=== PATIENT | female | born 1990 | race Caucasian/White ===

== ENCOUNTER 2016-03-15 11:19 | Emergency (ER) | payer BC, OTHER ==
[2016-03-15] MEDS ORDERED: LORazepam 1 MG TAB PO STA (11:50)
--- NOTE | 2016-03-15 12:18 | ED ---
Anxiety HPI - General Chief Complaint: Anxiety Stated Complaint: anxiety Time Seen by Provider: 03/15/16 11:36 Source: patient, RN notes reviewed Mode of arrival: wheelchair Limitations: no limitations - History of Present Illness Initial Comments: This a 25-year-old female presents emergency Department chief complaint anxiety. Patient states she's been very stressed out over the last week. She states today she started having numbness and tingling in her lips, fingertips. She states she felt very lightheaded and felt like her heart was racing. Patient states that she has not passed out. Patient states that her work, school and home life or catching up to her. She states that she is not suicidal or homicidal. She just states that she feels very off. She states she had mildly work today. Patient does have a history of mild anxiety but never this point. Patient denies any other complaints. - Related Data Home Medications: Previous Rx's Medication Instructions Recorded LORazepam [Ativan] 0.5 - 1 mg PO BID #10 tab 03/15/16 Allergies/Adverse Reactions: Allergies Allergy/AdvReac Type Severity Reaction Status Date / Time No Known Allergies Allergy Verified 03/15/16 11:45 Review of Systems ROS Statement: Those systems with pertinent positive or pertinent negative responses have been documented in the HPI. ROS Other: All systems not noted in ROS Statement are negative. Past Medical History Past Medical History: No Reported History History of Any Multi-Drug Resistant Organisms: None Reported Past Surgical History: No Surgical Hx Reported Past Anesthesia/Blood Transfusion Reactions: No Reported Reaction Past Psychological History: Anxiety Smoking Status: Never smoker Past Alcohol Use History: None Reported Past Drug Use History: None Reported - Past Family History Father Family Medical History: No Reported History General Exam Limitations: no limitations General appearance: alert, in no apparent distress Head exam: Present: atraumatic, normocephalic, normal inspection Eye exam: Present: normal appearance, PERRL, EOMI. Absent: scleral icterus, conjunctival injection, periorbital swelling ENT exam: Present: normal exam, normal oropharynx, mucous membranes moist, TM's normal bilaterally Neck exam: Present: normal inspection, full ROM. Absent: tenderness, meningismus, lymphadenopathy Respiratory exam: Present: normal lung sounds bilaterally. Absent: respiratory distress, wheezes, rales, rhonchi, stridor Cardiovascular Exam: Present: regular rate, normal rhythm, normal heart sounds. Absent: systolic murmur, diastolic murmur, rubs, gallop, clicks GI/Abdominal exam: Present: soft, normal bowel sounds. Absent: distended, tenderness, guarding, rebound, rigid Psychiatric exam: Present: anxious Skin exam: Present: warm, dry, intact, normal color. Absent: rash Course Vital Signs 03/15/16 11:30 Temperature 97.8 F Pulse Rate 88 Respiratory 20 Rate Blood Pressure 138/74 O2 Sat by Pulse 99 Oximetry Medical Decision Making - Medical Decision Making 25-year-old female presented for anxiety. Patient has had increased stress, anxiety. Patient was having a panic attack. She does feel improved after Ativan. Patient is not suicidal or homicidal. Patient will be discharged with Ativan at home. Disposition Clinical Impression: Acute anxiety, Panic attack Disposition: HOME SELF-CARE Condition: Stable Instructions: Generalized Anxiety Disorder (ED) Additional Instructions: Please return to the Emergency Department if symptoms worsen or any other concerns. Prescriptions: LORazepam [Ativan] 0.5 - 1 mg PO BID #10 tab Time of Disposition: 12:49
[2016-03-15 12:56] VITALS: BP 147/96; PULSE 85; RESP 16; TEMP 98
== END 2016-03-15 12:56 | disposition home or self-care (01) ==
LOC: EC 11:19
DX: F41.0 Panic disorder [episodic paroxysmal anxiety] (principal); Z79.899 Other long term (current) drug therapy
CPT/HCPCS: 99283

== ENCOUNTER → 2016-04-27 | Outpatient (CLI) | payer BC, OTHER | END | disposition home or self-care (01) | LOC: LABWHC1 10:24 | PROVIDERS: ATTEND Obstetrics & Gynecology | DX: N91.2 Amenorrhea, unspecified (principal) | CPT/HCPCS: 36415; 84702 ==

== ENCOUNTER 2016-08-14 07:01 | Emergency (ER) | payer BC, OTHER ==
[2016-08-14 07:10] VITALS: BP 139/81; PULSE 69; RESP 16; TEMP 97.1
[2016-08-14] MEDS ORDERED: SODIUM CHLORIDE 0.9% 1,000 ML IV STA (08:04)
[2016-08-14] MEDS ORDERED: MECLIZINE 12.5 MG TAB PO STA (08:04)
[2016-08-14] MEDS ORDERED: METOCLOPRAMIDE 5 MG/ML 2 ML VIAL IVP STA (08:04)
--- NOTE | 2016-08-14 08:07 | ED ---
Dizziness HPI - General Chief Complaint: Dizziness Stated Complaint: Dizzy Time Seen by Provider: 08/14/16 07:57 Source: patient, family, RN notes reviewed Mode of arrival: wheelchair Limitations: no limitations - History of Present Illness Initial Comments: 26-year-old female presents emergency Department chief complaint dizziness. Patient's visual over 4:30 with this dizziness. She states is exacerbated by any movement. Patient states she has had some nausea and vomiting. Denies headache denies fever denies chills denies any neck pain at this time. Patient has a benign past medical history has had no chest pain and no shortness of breath. She states with denies vomiting she's had no abdominal pain. Patient denies any recent URI symptoms. - Related Data Previous Rx's Medication Instructions Recorded Meclizine [Antivert] 25 mg PO TID PRN #15 tab 08/14/16 Ondansetron Odt [Zofran Odt] 4 mg PO Q8HR PRN #10 tab 08/14/16 Allergies Allergy/AdvReac Type Severity Reaction Status Date / Time No Known Allergies Allergy Verified 08/14/16 07:34 Review of Systems ROS Statement: Those systems with pertinent positive or pertinent negative responses have been documented in the HPI. ROS Other: All systems not noted in ROS Statement are negative. Past Medical History Past Medical History: No Reported History History of Any Multi-Drug Resistant Organisms: None Reported Past Surgical History: No Surgical Hx Reported Past Anesthesia/Blood Transfusion Reactions: No Reported Reaction Past Psychological History: Anxiety Smoking Status: Never smoker Past Alcohol Use History: None Reported Past Drug Use History: None Reported - Past Family History Father Family Medical History: No Reported History General Exam Limitations: no limitations General appearance: alert, in no apparent distress Head exam: Present: atraumatic, normocephalic, normal inspection Eye exam: Present: normal appearance, PERRL, EOMI. Absent: scleral icterus, conjunctival injection, periorbital swelling ENT exam: Present: normal exam, normal oropharynx, mucous membranes moist, TM's normal bilaterally, normal external ear exam Neck exam: Present: normal inspection, full ROM. Absent: tenderness, meningismus, lymphadenopathy Respiratory exam: Present: normal lung sounds bilaterally. Absent: respiratory distress, wheezes, rales, rhonchi, stridor Cardiovascular Exam: Present: regular rate, normal rhythm, normal heart sounds. Absent: systolic murmur, diastolic murmur, rubs, gallop, clicks Neurological exam: Present: alert, oriented X3, CN II-XII intact Skin exam: Present: warm, dry, intact, normal color. Absent: rash Course Vital Signs 08/14/16 07:07 Temperature 97.1 F L Pulse Rate 69 Respiratory 16 Rate Blood Pressure 139/81 O2 Sat by Pulse 98 Oximetry EKG Findings - EKG Comments: EKG Findings:: EKG performed at 8:56 sinus bradycardia with a rate of 59 RI interval 152 QRS duration 80 QT/QTC 414/409 Medical Decision Making - Medical Decision Making 26-year-old female presented for dizziness. Patient states she feels really better after Antivert and Reglan. Patient's laboratory within normal EKG does not show any acute changes. Patient be discharged with Antivert for vertigo. Return parameters were discussed. - Lab Data Result diagrams: 08/14/16 09:02 08/14/16 08:05 Lab Results 08/14/16 08/14/16 08/14/16 Range/Units 08:05 09:02 09:11 WBC 6.9 (3.8-10.6) k/uL RBC 4.68 (3.80-5.40) m/uL Hgb 14.4 (11.4-16.0) gm/dL Hct 41.5 (34.0-46.0) % MCV 88.6 (80.0-100.0) fL MCH 30.7 (25.0-35.0) pg MCHC 34.7 (31.0-37.0) g/dL RDW 12.9 (11.5-15.5) % Plt Count 245 (150-450) k/uL Neutrophils % 69 % Lymphocytes % 25 % Monocytes % 3 % Eosinophils % 2 % Basophils % 0 % Neutrophils # 4.7 (1.3-7.7) k/uL Lymphocytes # 1.7 (1.0-4.8) k/uL Monocytes # 0.2 (0-1.0) k/uL Eosinophils # 0.1 (0-0.7) k/uL Basophils # 0.0 (0-0.2) k/uL Sodium 139 (137-145) mmol/L Potassium 4.8 (3.5-5.1) mmol/L Chloride 107 (98-107) mmol/L Carbon Dioxide 21 L (22-30) mmol/L Anion Gap 11 mmol/L BUN 12 (7-17) mg/dL Creatinine 0.63 (0.52-1.04) mg/dL Est GFR (MDRD) Af Amer >60 (>60 ml/min/1.73 sqM) Est GFR (MDRD) Non-Af >60 (>60 ml/min/1.73 sqM) Glucose 102 H (74-99) mg/dL Calcium 9.6 (8.4-10.2) mg/dL Total Bilirubin 0.5 (0.2-1.3) mg/dL AST 22 (14-36) U/L ALT 29 (9-52) U/L Alkaline Phosphatase 112 (38-126) U/L Total Protein 7.7 (6.3-8.2) g/dL Albumin 4.2 (3.5-5.0) g/dL Urine Color Light Yellow Urine Appearance Cloudy H (Clear) Urine pH 6.5 (5.0-8.0) Ur Specific [place] 1.010 (1.001-1.035) Urine Protein Negative (Negative) Urine Glucose (UA) Negative (Negative) Urine Ketones Negative (Negative) Urine Blood Negative (Negative) Urine Nitrite Negative (Negative) Urine Bilirubin Negative (Negative) Urine Urobilinogen <2.0 (<2.0) mg/dL Ur Leukocyte Esterase Trace H (Negative) Urine WBC 1 (0-5) /hpf Ur Squamous Epith Cells 1 (0-4) /hpf Urine Mucus Rare H (None) /hpf Urine HCG, Qual (Not Detectd) 08/14/16 Range/Units 09:11 WBC (3.8-10.6) k/uL RBC (3.80-5.40) m/uL Hgb (11.4-16.0) gm/dL Hct (34.0-46.0) % MCV (80.0-100.0) fL MCH (25.0-35.0) pg MCHC (31.0-37.0) g/dL RDW (11.5-15.5) % Plt Count (150-450) k/uL Neutrophils % % Lymphocytes % % Monocytes % % Eosinophils % % Basophils % % Neutrophils # (1.3-7.7) k/uL Lymphocytes # (1.0-4.8) k/uL Monocytes # (0-1.0) k/uL Eosinophils # (0-0.7) k/uL Basophils # (0-0.2) k/uL Sodium (137-145) mmol/L Potassium (3.5-5.1) mmol/L Chloride (98-107) mmol/L Carbon Dioxide (22-30) mmol/L Anion Gap mmol/L BUN (7-17) mg/dL Creatinine (0.52-1.04) mg/dL Est GFR (MDRD) Af Amer (>60 ml/min/1.73 sqM) Est GFR (MDRD) Non-Af (>60 ml/min/1.73 sqM) Glucose (74-99) mg/dL Calcium (8.4-10.2) mg/dL Total Bilirubin (0.2-1.3) mg/dL AST (14-36) U/L ALT (9-52) U/L Alkaline Phosphatase (38-126) U/L Total Protein (6.3-8.2) g/dL Albumin (3.5-5.0) g/dL Urine Color Urine Appearance (Clear) Urine pH (5.0-8.0) Ur Specific [place] (1.001-1.035) Urine Protein (Negative) Urine Glucose (UA) (Negative) Urine Ketones (Negative) Urine Blood (Negative) Urine Nitrite (Negative) Urine Bilirubin (Negative) Urine Urobilinogen (<2.0) mg/dL Ur Leukocyte Esterase (Negative) Urine WBC (0-5) /hpf Ur Squamous Epith Cells (0-4) /hpf Urine Mucus (None) /hpf Urine HCG, Qual Not Detected (Not Detectd) Disposition Clinical Impression: Vertigo Disposition: HOME SELF-CARE Condition: Stable Instructions: Vertigo (ED) Additional Instructions: Please return to the Emergency Department if symptoms worsen or any other concerns. Prescriptions: Meclizine [Antivert] 25 mg PO TID PRN #15 tab PRN Reason: Vertigo Ondansetron Odt [Zofran Odt] 4 mg PO Q8HR PRN #10 tab PRN Reason: Nausea Referrals: Karen Rodrigues DO [Primary Care Provider] - 1-2 days Time of Disposition: 09:48
[2016-08-14 09:27] LABS: ALT 29 U/L (9-52); AST 22 U/L (14-36); Alkaline Phosphatase 112 U/L (38-126); Anion Gap 11 mmol/L; Blood Urea Nitrogen 12 mg/dL (7-17); Calcium 9.6 mg/dL (8.4-10.2); Carbon Dioxide 21 mmol/L (22-30); Chloride 107 mmol/L (98-107); Glucose 102 mg/dL (74-99); Non-African American GFR(MDRD) >60 (>60 ml/min/1.73 sqM); Potassium 4.8 mmol/L (3.5-5.1); Sodium 139 mmol/L (137-145); Total Bilirubin 0.5 mg/dL (0.2-1.3); Total Protein 7.7 g/dL (6.3-8.2)
[2016-08-14 09:29] LABS: Basophils % (A) 0 %; CH 30.6; CHCM 34.7; Eosinophils # (A) 0.1 k/uL (0-0.7); Eosinophils % (A) 2 %; HCT 41.5 % (34.0-46.0); HDW 2.61; HGB 14.4 gm/dL (11.4-16.0); Luc % (Auto) 1; Lymphocytes # (A) 1.7 k/uL (1.0-4.8); Lymphocytes % (A) 25 %; MCH 30.7 pg (25.0-35.0); MCHC 34.7 g/dL (31.0-37.0); MCV 88.6 fL (80.0-100.0); Mean Platelet Volume 7.1; Monocytes # (A) 0.2 k/uL (0-1.0); Monocytes % (A) 3 %; Neutrophils # (A) 4.7 k/uL (1.3-7.7); Neutrophils % (A) 69 %; RBC 4.68 m/uL (3.80-5.40); RDW 12.9 % (11.5-15.5); WBC 6.9 k/uL (3.8-10.6); WBC (Perox) 6.86
[2016-08-14 09:34] LABS: Appearance,Urine Cloudy (Clear); Bilirubin,Urine Negative (Negative); Glucose,Urine (UA) Negative (Negative); Ketones,Urine Negative (Negative); Leukocyte Esterase,Urine Trace (Negative); Mucus,Urine Rare /hpf; Nitrite,Urine Negative (Negative); PH, Urine 6.5 (5.0-8.0); Particle Count 8345; Protein,Urine Negative (Negative); Squamous Epithelial Cell,Urine 1 /hpf (0-4); UA Billing (MACRO vs. MICRO) MICRO; Urobilinogen,Urine <2.0 mg/dL (<2.0); WBC,Urine 1 /hpf (0-5)
== END 2016-08-14 10:07 | disposition home or self-care (01) ==
LOC: EC 07:01
DX: R42 Dizziness and giddiness (principal)
CPT/HCPCS: 99284; 96374; 96361; 36415; 93005; 80053; 85025; 81001; 81025; J2765

== ENCOUNTER 2017-05-09 16:21 | Emergency (ER) | payer BC ==
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
[2017-05-09 17:41] LABS: Basophils % (A) 0 %; Eosinophils # (A) 0.3 k/uL (0-0.7); Eosinophils % (A) 2 %; HCT 38.8 % (34.0-46.0); HGB 12.8 gm/dL (11.4-16.0); Lymphocytes # (A) 2.9 k/uL (1.0-4.8); Lymphocytes % (A) 25 %; MCH 28.6 pg (25.0-35.0); MCHC 32.9 g/dL (31.0-37.0); MCV 86.9 fL (80.0-100.0); Mean Platelet Volume 7.2; Monocytes # (A) 0.4 k/uL (0-1.0); Monocytes % (A) 3 %; Neutrophils # (A) 7.9 k/uL (1.3-7.7); Neutrophils % (A) 68 %; Platelet Count 265 k/uL (150-450); RBC 4.47 m/uL (3.80-5.40); RDW 13.1 % (11.5-15.5); WBC 11.6 k/uL (3.8-10.6)
[2017-05-09 17:47] LABS: Appearance,Urine Clear (Clear); Bilirubin,Urine Negative (Negative); Blood,Urine Small (Negative); Color,Urine Light Yellow; Glucose,Urine (UA) Negative (Negative); Ketones,Urine Negative (Negative); Leukocyte Esterase,Urine Negative (Negative); PH, Urine 5.5 (5.0-8.0); Protein,Urine Negative (Negative); RBC,Urine 1 /hpf (0-5); Specific Gravity,Urine 1.005 (1.001-1.035); Squamous Epithelial Cell,Urine 1 /hpf (0-4); Urobilinogen,Urine <2.0 mg/dL (<2.0); WBC,Urine 1 /hpf (0-5)
[2017-05-09 17:50] LABS: ALT 27 U/L (9-52); AST 18 U/L (14-36); Albumin 3.9 g/dL (3.5-5.0); Alkaline Phosphatase 106 U/L (38-126); Anion Gap 12 mmol/L; Blood Urea Nitrogen 13 mg/dL (7-17); Calcium 9.5 mg/dL (8.4-10.2); Carbon Dioxide 24 mmol/L (22-30); Chloride 102 mmol/L (98-107); Glucose 92 mg/dL (74-99); Sodium 138 mmol/L (137-145); Total Bilirubin 0.2 mg/dL (0.2-1.3); Total Protein 7.3 g/dL (6.3-8.2)
[2017-05-09 18:06] LABS: HCG,Quantitative Serum 6884.6 mIU/mL
[2017-05-09 18:21] VITALS: RESP 16
[2017-05-09 18:24] VITALS: BP 131/71; PULSE 95; TEMP 99
--- NOTE | 2017-05-09 18:28 | US ---
EXAMINATION TYPE: US OB <= 14 wk fetus DATE OF EXAM: 05/09/2017 COMPARISON: NONE CLINICAL HISTORY: Pain. Bleeding today, none now, no cramping G1, EXAM PERFORMED: OBTA and OBTV EXAM MEASUREMENTS: GESTATIONAL AGE / DATING Physician Established: Not yet established Dates by LMP: (7 weeks/4 days) EDC: 12/22/2017 Dates by First Scan: No previous this is first scan Dates by Current Scan for: too early to date MATERNAL ANATOMY Uterus: 7.6 x 5.6 x 4.1cm, retroverted Right Ovary: 3.4 x 2.7 x 2.7cm Left Ovary: 2.6 x 2.4 x 2.2cm, small 1.2cm exophytic cyst seen Post CDS / Adnexa: mild free fluid Presence of free fluid: in CDS Presence of corpus luteal cyst: yes - right ovary = 1.8cm Presence of subchorionic bleed: no GESTATION / SURVEY CRL: not see, possibly too early MSD: 0.95cm = OOR, out of range, less then 5 weeks Yolk Sac (normal less than 6mm): 0.2 Heart Rate: too early to detect 1.8 cm cyst on the right ovary. Date of LMP: 03/17/2017 Beta HcG (if available): not available Probable early IUP seen with mild free fluid within CDS and right ovarian cysts IMPRESSION: There is possible early intrauterine gestational sac. Diameter is 11 mm and follow-up is recommended in 14 days to confirm a living fetus. No adnexal mass. 1.8 cm cyst on the right ovary.
== END 2017-05-09 18:52 | disposition home or self-care (01) ==
LOC: EC 16:21
DX: O20.9 Hemorrhage in early pregnancy, unspecified (principal); O99.89 Other specified diseases and conditions complicating pregnancy, childbirth and the puerperium; R60.9 Edema, unspecified; O26.891 Other specified pregnancy related conditions, first trimester; R10.9 Unspecified abdominal pain; Z3A.01 Less than 8 weeks gestation of pregnancy
CPT/HCPCS: 36415; 76801; 76817; 80053; 81001; 81025; 84702; 85025; 86900; 86901; 99284

== ENCOUNTER → 2017-05-11 | Outpatient (CLI) | payer BC | END | disposition home or self-care (01) | LOC: LABWHC1 12:22 | PROVIDERS: ATTEND Physician Assistant Medical | DX: O20.0 Threatened abortion (principal); Z3A.00 Weeks of gestation of pregnancy not specified | CPT/HCPCS: 36415; 84702 ==

== ENCOUNTER → 2017-06-20 | Outpatient (CLI) | payer BC ==
[2017-06-20 07:40] LABS: HCT 38.9 % (34.0-46.0); HGB 12.9 gm/dL (11.4-16.0); MCH 28.7 pg (25.0-35.0); MCHC 33.1 g/dL (31.0-37.0); MCV 86.7 fL (80.0-100.0); Mean Platelet Volume 7.2; Platelet Count 241 k/uL (150-450); RBC 4.48 m/uL (3.80-5.40); RDW 13.1 % (11.5-15.5); WBC 7.9 k/uL (3.8-10.6)
[2017-06-20 07:57] LABS: Glucose 142 mg/dL (74-99)
[2017-06-21 06:12] LABS: Toxoplasma Antibody (IgG) <3.0 IU/mL (<7.2); Toxoplasma Antibody (IgM) <3.0 AU/mL (<8.0)
== END | disposition home or self-care (01) ==
LOC: LABWHC1 06:57
PROVIDERS: ATTEND Obstetrics & Gynecology
DX: Z34.81 Encounter for supervision of other normal pregnancy, first trimester (principal)
CPT/HCPCS: 36415; 82565; 82947; 85027; 86762; 86777; 86778; 86780; 86850; 86900; 86901; 87340

== ENCOUNTER → 2017-06-25 | Outpatient (CLI) | payer BC ==
[2017-06-25 17:21] LABS: HCT 36.9 % (34.0-46.0); HGB 12.9 gm/dL (11.4-16.0); MCH 29.9 pg (25.0-35.0); MCHC 35.1 g/dL (31.0-37.0); MCV 85.1 fL (80.0-100.0); Mean Platelet Volume 6.8; Platelet Count 244 k/uL (150-450); RBC 4.34 m/uL (3.80-5.40); WBC 11.6 k/uL (3.8-10.6)
== END | disposition home or self-care (01) ==
LOC: LABWHC1 16:06
PROVIDERS: ATTEND Obstetrics & Gynecology
DX: Z34.81 Encounter for supervision of other normal pregnancy, first trimester (principal); Z3A.00 Weeks of gestation of pregnancy not specified
CPT/HCPCS: 36415; 82950; 85027

== ENCOUNTER → 2017-09-25 | Outpatient (CLI) | payer OTHER ==
[2017-09-25 10:05] LABS: HCT 36.1 % (34.0-46.0); HGB 12.4 gm/dL (11.4-16.0); MCHC 34.2 g/dL (31.0-37.0); MCV 87.5 fL (80.0-100.0); Mean Platelet Volume 7.1; Platelet Count 244 k/uL (150-450); RBC 4.13 m/uL (3.80-5.40); RDW 14.2 % (11.5-15.5); WBC 11.4 k/uL (3.8-10.6)
== END | disposition home or self-care (01) ==
LOC: LABWHC1 08:28
PROVIDERS: ATTEND Obstetrics & Gynecology
DX: Z34.82 Encounter for supervision of other normal pregnancy, second trimester (principal); Z3A.00 Weeks of gestation of pregnancy not specified
CPT/HCPCS: 36415; 82950; 85027

== ENCOUNTER 2017-10-22 12:42 | Outpatient (CLI) | payer OTHER ==
[2017-10-22 13:39] LABS: Appearance,Urine Cloudy (Clear); Bilirubin,Urine Negative (Negative); Blood,Urine Negative (Negative); Color,Urine Yellow; Glucose,Urine (UA) Negative (Negative); Ketones,Urine 2+ (Negative); Leukocyte Esterase,Urine Large (Negative); Mucus,Urine Moderate /hpf; Nitrite,Urine Negative (Negative); PH, Urine 5.5 (5.0-8.0); Protein,Urine 1+ (Negative); RBC,Urine 33 /hpf (0-5); Specific Gravity,Urine 1.023 (1.001-1.035); Squamous Epithelial Cell,Urine 21 /hpf (0-4); Urobilinogen,Urine <2.0 mg/dL (<2.0); WBC,Urine 19 /hpf (0-5)
[2017-10-22 14:08] VITALS: BP 138/67; PULSE 99; RESP 20; TEMP 98.2
--- NOTE | 2017-11-02 08:05 | P.MSEPDOC ---
Presenting Problems - Arrival Data Date of Arrival on Unit: 10/22/17 Time of Arrival on Unit: 12:40 Mode of Transport: Ambulatory Vital Signs - Temperature Temperature: 98.2 F Temperature Source: Oral - Pulse Right Pulse Oximetery Pulse Rate: 99 Pulse Assessment Method: Pulse Oximetry - Respirations Respiratory Rate: 20 Oxygen Delivery Method: Room Air O2 Sat by Pulse Oximetry: 100 - Blood Pressure Right Arm Blood Pressure: 138/67 Blood Pressure Mean: 90 Blood Pressure Source: Automatic Cuff Medical Screen Scoring (Post) - Cervical Exam Dilation: 0 cm = 0 Membranes: Intact - Uterine Contractions Frequency: > 5 minutes apart = 1 Duration: N/A Intensity: N/A - Maternal Vital Signs Maternal Temperature: N/A Maternal Blood Pressure: N/A Signs of Preeclampsia: N/A Maternal Respirations: N/A - Pain Assessment Pain Location and Character: Pelvic Pain Scale Used: Numeric (1 - 10) Pain Intensity: 5 Pain Management Goal: 2 Pain Description: *Acute, Pressure Pain Radiation Location: none Pain Frequency: Constant Pain Duration: 1 Pain Duration Units: Days Pain Behavior: Moving Slowly, Vocalization Effects of Pain: none Pain Aggravating Factors: None Pharmacological Interventions: Discuss Pain Med Options Non-Pharmacological Interventions: Position/Reposition - Maternal Trauma Maternal Trauma: N/A - Assessment Heart Rate: 130 Heart Rate - NICHD Category: Category I (Normal) = 0 Position: N/A Station: N/A - Total Score Total Score (Post): 1 - Post Treatment Level of Risk Post Treatment Level of Risk: Low (0-5) Physician Notification (Post) - Physician Notified Physician Notified Date: 10/22/17 Physician Notified Time: 13:21 Physician/Practitioner Notified:: Aracelis Spoke With: Telephone New Order Received: Yes - Notification Comment Comment: Pt here for pelvic pain and pressure and abdominal tightening every 3- 7 min per patient. Cervix closed and thick, UA send showing signs of bladder infection. ATB e-scribed by Dr Hsu to pts pharmacy and instructions given to pt to supervisor opening and picking prescription today and take as prescribed until prescription is gone. NST unable to obtain due to pt size, FHR RN did obtain was reassuring, okay to D/C still per Dr Hsu Disposition - Disposition OB Disposition: Discharge to home Discharge Date: 10/22/17 Discharge Time: 14:00 I agree with the RN Medical Screening Exam: Yes Risk & Benefit of care provided described in d/c instruction: Yes Diagnosis: URINARY TRACT INFECTION, SITE NOT SPECIFIED
== END 2017-10-22 14:00 | disposition home or self-care (01) ==
LOC: FBPOP 12:42
PROVIDERS: ATTEND Obstetrics & Gynecology
DX: O23.40 Unspecified infection of urinary tract in pregnancy, unspecified trimester (principal); Z3A.00 Weeks of gestation of pregnancy not specified
CPT/HCPCS: 81001; G0463; 99213

== ENCOUNTER 2017-11-08 19:16 | Outpatient (CLI) | payer OTHER ==
[2017-11-09 05:19] VITALS: BP 130/65; PULSE 76; RESP 18; TEMP 98.4
--- NOTE | 2017-11-25 09:20 | P.MSEPDOC ---
Presenting Problems - Arrival Data Date of Arrival on Unit: 11/08/17 Time of Arrival on Unit: 19:16 Mode of Transport: Ambulatory - Complaint OB-Reason for Admission/Chief Complaint: Decreased Movement Comment: pt presents to triage after having cramping off and on all day irregularly. since around 10 am, not feeing baby move since noon and small amount bright red spotting. noticed on tissue when wiping about 645pm. Pt teary. states baby is usually very active. at this time. Medical History - Information : 2 Para: 1 Term: 1 : 0 Abortions: Spontaneous or Elective: 0 Number of Living Children: 1 - Gestational Age Gestational Age by GUANACO (wks/days): 32 Weeks and 0 Days - History Complications: Prior Review of Systems - Review of Systems Constitutional: No problems Breast: No problems ENT: No problems Cardiovascular: No problems Respiratory: No problems Gastrointestinal: No problems Genitourinary: No problems Musculoskeletal: No problems Neurological: No problems Skin: No problems Comment: no spotting noted on tissue when pt up to bathroom Vital Signs - Temperature Temperature: 98.4 F Temperature Source: Oral - Pulse Right Pulse Rate: 76 Pulse Assessment Method: Pulse Oximetry - Respirations Respiratory Rate: 18 Oxygen Delivery Method: Room Air O2 Sat by Pulse Oximetry: 98 - Blood Pressure Right Arm Blood Pressure: 130/65 Blood Pressure Mean: 86 Blood Pressure Source: Automatic Cuff Medical Screen Scoring (Pre) - Cervical Exam Dilation: Exam Deferred Effacement: Exam Deferred - Uterine Contractions Frequency: N/A - Maternal Vital Signs Maternal Temperature: N/A Maternal Blood Pressure: N/A Signs of Preeclampsia: N/A Maternal Respirations: N/A - Pain Assessment Pain Intensity: 0 - Maternal Trauma Maternal Trauma: N/A - Assessment Baseline FHR: 135 - Total Score Total Score (Pre): 0 - Level of Risk Level of Risk: N/A Physician Notification (Pre) - Physician Notified Physician Notified Date: 11/08/17 Physician Notified Time: 21:30 Spoke With: Dr Sales New Order Received: Yes - Notification Comment Comment: May discharge home after another 10 min of monitoring tracing. Dr vail pt is large and extremly difficult to keep baby on monitor. unable to obtain full 20 NSt but 2 accels and reassuring strip obtained for 9 min at 2034. full reactive nst obtained by 2149 . pt feeling baby movement. comfortable with discharge. Disposition - Disposition OB Disposition: Discharge to home Discharge Date: 11/09/17 Discharge Time: 22:10 I agree with the RN Medical Screening Exam: Yes Risk & Benefit of care provided described in d/c instruction: Yes Diagnosis: DECREASED MOVEMENTS, THIRD TRIMESTER, FETUS 1
== END 2017-11-08 22:10 | disposition home or self-care (01) ==
LOC: FBPOP 19:16
PROVIDERS: ATTEND Obstetrics & Gynecology
DX: O36.8131 Decreased fetal movements, third trimester, fetus 1 (principal); Z3A.32 32 weeks gestation of pregnancy
CPT/HCPCS: 59025; G0463; 99213

== ENCOUNTER 2017-12-28 05:35 | Inpatient (IN) | payer BC, OTHER ==
[2017-12-26 13:03] VITALS: BMI 56.0
--- NOTE | 2017-12-27 07:00 | P.HPOB ---
History of Present Illness H&P Date: 12/27/17 Chief Complaint: Repeat and tubal ligation This patient is a pleasant 27-year-old 2 para 1 female estimated date of confinement 01/04/2018 estimated gestational age 39 weeks who presents to labor and delivery for elective repeat section and also requesting permanent sterilization. Patient's has been uncomplicated with the exception of morbid obesity. She's had previous section and request repeat and also requesting permanent sterilization. Review of Systems Gastrointestinal: Reports heartburn Genitourinary: Reports Menstruation: Reports amenorrhea Past Medical History Past Medical History: No Reported History Additional Past Medical History / Comment(s): Morbid obesity. Patient had a primary section her first for failure to progress at 41 weeks. History of Any Multi-Drug Resistant Organisms: None Reported Past Surgical History: Section Past Anesthesia/Blood Transfusion Reactions: No Reported Reaction Past Psychological History: Anxiety Smoking Status: Never smoker Past Alcohol Use History: None Reported Past Drug Use History: None Reported - Past Family History Father Family Medical History: No Reported History Medications and Allergies Home Medications Medication Instructions Recorded Confirmed Type Zxi-Iuuk-Slgqv Acid 1 cap PO DAILY 05/09/17 10/22/17 History [-U Capsule (formulary)] Allergies Allergy/AdvReac Type Severity Reaction Status Date / Time No Known Allergies Allergy Verified 12/26/17 13:00 Exam Intake and Output 12/26/17 12/26/17 12/27/17 14:59 22:59 06:59 Other: Weight 157.397 kg - OBG Physical Exam Abdomen: bowel sounds normal, no diffuse tenderness, no bruit present, no guarding noted, no hepatomegaly, no splenomegaly, no mass Vulva: both: normal Vagina: normal moisture, no discharge Cervix: no lesion (Cervix in the office previously was closed.), no discharge Uterus: normal size (Fundal height was 46 cm.), normal contour Results blood work shows she is oh positive, rubella immune, hepatitis B nonreactive, RPR nonreactive, Glucola was abnormal with a normal three-hour gtt. Patient's ultrasounds have been normal. Patient had a positive group B strep. Assessment and Plan Assessment: This is a pleasant 27-year-old 2 para 1 female 39 weeks gestation who presents for requested repeat section and also requesting permanent sterilization. Patient understands a tubal ligation is considered permanent however it does have a failure rate of approximately 5 per thousand procedures done. Patient also understands surgery itself has risks including risks of infection, bleeding, possible injury bowel, bladder, vessels, and/or other organs. She understands risk of DVT and pulmonary embolism. She also understands unfortunately due to her morbid obesity she is at increased risk of infection or other surgical complications. Plan is to proceed with repeat low transverse section and bilateral partial salpingectomy. (1) Previous delivery affecting Status: Acute Code(s): O34.219 - MATERNAL CARE FOR UNSP TYPE SCAR FROM PREVIOUS DEL SNOMED Code(s): 494612172 (2) Family planning Status: Acute Code(s): Z30.09 - ENCOUNTER FOR OTH GENERAL CNSL AND ADVICE ON CONTRACEPTION SNOMED Code(s): 996425809 (3) Morbid obesity Status: Acute Code(s): E66.01 - MORBID (SEVERE) OBESITY DUE TO EXCESS CALORIES SNOMED Code(s): 971805383
[2017-12-28] MEDS ORDERED: CITRIC ACID-SODIUM CITRATE 15 ML CUP PO ONE (05:50)
[2017-12-28] MEDS ORDERED: LACTATED RINGERS 1,000 ML IV ONE (05:50)
[2017-12-28] MEDS ORDERED: LACTATED RINGERS 1,000 ML IV SCH (05:50)
[2017-12-28 06:21] LABS: Basophils % (A) 0 %; Eosinophils # (A) 0.2 k/uL (0-0.7); Eosinophils % (A) 1 %; HGB 11.9 gm/dL (11.4-16.0); Lymphocytes # (A) 2.5 k/uL (1.0-4.8); Lymphocytes % (A) 19 %; MCHC 33.9 g/dL (31.0-37.0); MCV 88.4 fL (80.0-100.0); Mean Platelet Volume 7.4; Monocytes # (A) 0.4 k/uL (0-1.0); Monocytes % (A) 3 %; Neutrophils # (A) 9.6 k/uL (1.3-7.7); Neutrophils % (A) 75 %; Platelet Count 217 k/uL (150-450); RBC 3.96 m/uL (3.80-5.40); RDW 14.9 % (11.5-15.5); WBC 12.8 k/uL (3.8-10.6)
[2017-12-28] MEDS ORDERED: ceFAZolin 3 GM in SODIUM CHLORIDE 0.9% 100 ML IVPB ONE (07:30)
[2017-12-28] MEDS ORDERED: PROPOFOL 10 MG/ML 20 ML VIAL IV ONE (07:49)
[2017-12-28] MEDS ORDERED: SUCCINYLCHOLINE CHLORIDE 100 MG/5 ML SYR IV ONE (07:49)
[2017-12-28] MEDS ORDERED: OXYTOCIN 10 UNIT/ML 1 ML VIAL ONE (07:49)
[2017-12-28] MEDS ORDERED: fentaNYL (PF) 50 MCG/ML 2 ML AMP ONE (07:49)
[2017-12-28] MEDS ORDERED: KETOROLAC 30 MG/ML 1 ML VIAL ONE (07:49)
[2017-12-28] MEDS ORDERED: ONDANSETRON 4 MG/2 ML VIAL ONE (07:49)
[2017-12-28] MEDS ORDERED: NALBUPHINE 10 MG/ML VIAL (10ML MDV) ONE (07:49)
[2017-12-28] MEDS ORDERED: MORPHINE SULFATE (PF) 0.3 MG/0.3 ML SYR ONE (07:49)
[2017-12-28] MEDS ORDERED: diphenhydrAMINE 50 MG/ML 1 ML VIAL IVP PRN ×2 (08:41→09:03)
[2017-12-28] MEDS ORDERED: NALOXONE 0.4 MG/ML 1 ML VIAL IV PRN ×2 (08:41→09:03)
--- NOTE | 2017-12-28 09:02 | P.OP ---
Date of Procedure: 12/28/17 Preoperative Diagnosis: #1: 39-0/7 weeks . #2: Previous section desires repeat. #3: Multi parity desires permanent sterilization Postoperative Diagnosis: Same, omental adhesions Procedure(s) Performed: #1: Repeat low transverse section. #2: Bilateral partial salpingectomy. #3: Lysis of adhesions Anesthesia: GETA (Ineffective spinal) Surgeon: Ray Hsu Bellows Assembler #1: Marci Coker Estimated Blood Loss (ml): 800 Pathology: other (Bilateral fallopian tube segments) Condition: stable Disposition: floor Indications for Procedure: Please see dictated H&P for intimate details of this patient's admission. Brief summary is a pleasant 27-year-old 2 para 1 female 39-0/7 weeks gestation is admitted to labor and delivery for elective repeat section and also requesting permanent sterilization. Patient does understand that a tubal ligation is permanent however does have a failure rate of approximately 5 per thousand procedures done. She understands that surgery itself has risks including risks of infection, bleeding, possible injury bowel, bladder, vessels, and/or other organs. Patient stands risk of DVT and pulmonary embolism. All the patient's questions are answered and a written consent is obtained. Operative Findings: This is a vigorous viable male infant Apgars 8 and 9 delivery time was 0820 hours. There is multiple omental adhesions to the anterior abdominal wall. Description of Procedure: This patient is taken to the operating room. She previously had a Garnica catheter placed to straight drain. Patient sat up and spinal anesthetic is administered. Patient this time then have abdominal prep and drape unfortunately after prolonged observation the spinal was deemed to be ineffective and then consultation with anesthesia we elected to proceed with general anesthesia for delivery. At this time she underwent rapid sequence general endotracheal anesthesia without incident. Scalpels taken the previous Pfannenstiel skin incision is then incised. A second scalpel is taken down the fascia. Fascia scored with a knife. Fascial incision extended bilaterally using the Witt scissors. Fascia is then dissected sharply off the rectus muscles. Rectus muscles are the peritoneum was identified and entered sharply. We immediately noticed multiple omental adhesions which are cleared. The bladder blade is then placed. Scalpels then taken and a low transverse uterine incision is made. Using a hemostat I into the uterine cavity bluntly. There is loss of a copious amount of clear fluid. With this done the is guided through the incision with fundal pressure the head is delivered. Mouth and nares are bulb suctioned and there is no evidence of nuchal cord. We then have deliver the anterior posterior shoulder and rest this 's body. This is a vigorous viable male infant Apgars are 8 and 9 delivery time was 0820 hours. After delivery of the infant the umbilical cord is doubly clamped and cut appears to be trivascular. Cord blood is obtained because of oh positive status. The placenta is then delivered intact. Uterus is externalized and demarcated with Mcclelland clamps uterine incision then closed in 0 Vicryl running locked fashion. Excellent hemostasis is noted. Then turned my attention a left fallopian tube approximately 4 cm from the cornual insertion a small window is made to the mesial salpinx with Bovie cautery. Using 2-0 silk I doubly ligate a 2 cm segment of the tube. This is excised and handed off to pathology. Cauterization is done of the tubal ends and excellent hemostasis is noted a similar technique is used on the right side with similar results. With this done excess fluid is removed from the abdomen pelvis. Some more omental adhesions are cauterized and released. Uterus placed back into the abdomen. Tubes and ovaries appear normal for term gestation. The parietal peritoneum was then isolated is best as possible and reapproximated using 0 Vicryl running fashion. Rectus muscle reapproximate 0 Vicryl interrupted fashion. Fascia is then closed using 0 PDS. Fascial incision is intact and hemostatic. Subcutaneous tissues and closed using a 3-0 Vicryl. Skin is and closed using wilmer. All counts are correct 3. There are no complications. Patient is awakened from anesthesia and taken birthing suite in satisfactory condition.
[2017-12-28] MEDS ORDERED: ACETAMINOPHEN TAB 325 MG TAB PO PRN (09:03)
[2017-12-28] MEDS ORDERED: KETOROLAC 30 MG/ML 1 ML VIAL IVP PRN (09:03)
[2017-12-28] MEDS ORDERED: OXYTOCIN 20 UNITS/1000 ML NS 1,000 ML IV SCH (09:03)
[2017-12-28] MEDS ORDERED: ONDANSETRON 4 MG/2 ML VIAL IVP PRN (09:03)
[2017-12-28] MEDS ORDERED: diphenhydrAMINE 25 MG CAP PO PRN (09:03)
[2017-12-28] MEDS ORDERED: ZOLPIDEM 5 MG TAB PO PRN (09:03)
[2017-12-28] MEDS ORDERED: IBUPROFEN 600 MG TAB PO PRN (09:03)
[2017-12-28] MEDS ORDERED: SIMETHICONE 80 MG CHEWABLE PO PRN (09:03)
[2017-12-28] MEDS: HYDROmorphone 1 MG/ML 1 ML SYRINGE IVP PRN ×2 (09:09→11:20)
[2017-12-28] MEDS: ONDANSETRON 4 MG/2 ML VIAL IVP PRN ×3 (09:12→21:02)
[2017-12-28] MEDS: LACTATED RINGERS 1,000 ML IV SCH ×2 (09:17→17:14)
[2017-12-28] MEDS ORDERED: HYDROmorphone 1 MG/ML 1 ML SYRINGE IVP STA ×2 (09:26→09:59)
[2017-12-28] MEDS: METOCLOPRAMIDE 5 MG/ML 2 ML VIAL IVP PRN ×2 (09:44→16:17)
[2017-12-28] MEDS: SENNOSIDES-DOCUSATE SODIUM 1 EACH TAB PO SCH ×2 (10:47→20:33)
[2017-12-28] MEDS: HYDROmorphone PCA 5 MG/25 ML SYRINGE IV PRN ×3 (11:58→23:33)
[2017-12-28] MEDS: KETOROLAC 30 MG/ML 1 ML VIAL IVP PRN (21:03)
[2017-12-29] MEDS: LACTATED RINGERS 1,000 ML IV SCH ×2 (00:53→21:44)
[2017-12-29] MEDS: KETOROLAC 30 MG/ML 1 ML VIAL IVP PRN (04:28)
[2017-12-29] MEDS: ONDANSETRON 4 MG/2 ML VIAL IVP PRN (04:38)
[2017-12-29 05:44] LABS: Basophils % (A) 0 %; Eosinophils # (A) 0.1 k/uL (0-0.7); Eosinophils % (A) 1 %; HCT 29.2 % (34.0-46.0); Lymphocytes # (A) 1.5 k/uL (1.0-4.8); Lymphocytes % (A) 13 %; MCH 29.8 pg (25.0-35.0); MCHC 33.9 g/dL (31.0-37.0); Mean Platelet Volume 8.1; Monocytes # (A) 0.6 k/uL (0-1.0); Monocytes % (A) 6 %; Neutrophils # (A) 8.8 k/uL (1.3-7.7); Neutrophils % (A) 79 %; Platelet Count 174 k/uL (150-450); RBC 3.32 m/uL (3.80-5.40); RDW 14.9 % (11.5-15.5); WBC 11.1 k/uL (3.8-10.6)
[2017-12-29 05:48] LABS: HGB 9.9 gm/dL (11.4-16.0)
[2017-12-29] MEDS: HYDROmorphone PCA 5 MG/25 ML SYRINGE IV PRN (07:21)
[2017-12-29] MEDS: SENNOSIDES-DOCUSATE SODIUM 1 EACH TAB PO SCH ×2 (07:26→21:43)
--- NOTE | 2017-12-29 11:58 | P.PNOBGPC ---
Subjective - Subjective Principal diagnosis: Status post repeat section with tubal ligation POD #1 Interval history: Patient is complaining of dizziness and motion sickness feelings. She gets nausea when she tries to move. She is not passing flatus or bowel movement yet. She has ambulated a few times. Her Garnica catheter was removed early this morning and she has been up to the bathroom and has urinated. She is breast- feeding. Her pain is fairly well controlled with her [employer] pump. Lochia has been moderate. Patient reports: Reports voiding normally, Reports dizzy ambulation, Reports pain well controlled, Reports nauseated : doing well, nursing well Objective - Vital Signs Latest vital signs: Vital Signs Temp Pulse Resp BP BP Pulse Ox 12/29/17 10:36 94 18 129/60 12/29/17 08:00 98.4 F 104 H 18 120/73 97 12/29/17 06:00 14 12/29/17 04:15 98.1 F 105 H 16 142/71 100 12/29/17 02:00 16 12/28/17 23:58 97.5 F L 92 16 108/63 98 12/28/17 22:00 16 98 12/28/17 20:00 98.1 F 97 16 138/81 100 12/28/17 19:00 16 12/28/17 17:00 18 99 12/28/17 16:00 98.4 F 72 18 144/71 12/28/17 15:00 18 12/28/17 13:55 98.0 F 79 18 135/79 12/28/17 13:00 18 Intake and Output 12/28/17 12/29/17 12/29/17 22:59 06:59 14:59 Intake Total 1600 600 Output Total 500 625 700 Balance -500 975 -100 Intake: Intake, IV Titration 1000 Amount Lactated Ringers 1,000 ml 1000 @ 125 mls/hr IV .Q8H [facility] Rx#:[id number] Oral 600 Other 600 Output: Urine 500 625 700 - Exam Extremities: Present: edema Abdomen: Present: normal appearance, soft (Very faint bowel sounds 4). Absent : distention, tenderness Incision: Present: normal, dry, intact Uterus: Present: normal, firm. Absent: tenderness - Labs Labs: Abnormal Lab Results - Last 24 Hours (Table) 12/29/17 Range/Units 05:28 WBC 11.1 H (3.8-10.6) k/uL RBC 3.32 L (3.80-5.40) m/uL Hgb 9.9 L D (11.4-16.0) gm/dL Hct 29.2 L (34.0-46.0) % Neutrophils # 8.8 H (1.3-7.7) k/uL Assessment and Plan Assessment: Status post repeat section with tubal ligation postoperative day #1 Plan: Will order a scopolamine patch to hopefully help with her motion sickness and dizziness feelings when she ambulates. We will try to switch from [employer] pump to oral pain medication later this afternoon. Encouraged ambulation after she is feeling better with dizziness. Will advance diet as tolerated after flatus.
[2017-12-29] MEDS ORDERED: SCOPOLAMINE 1.5MG/72HR PATCH TRANSDERM ONE (12:00)
[2017-12-29] MEDS: HYDROcodone/APAP 5-325MG 1 EACH TAB PO PRN ×2 (18:11→21:55)
--- NOTE | 2017-12-29 20:42 | P.DS ---
Providers Date of admission: 12/28/17 05:35 Expected date of discharge: 12/29/17 Attending physician: Ray Hsu Primary care physician: Stated None Hospital Course: This is a 27-year-old female who presented for a scheduled repeat section tubal ligation on 12/28/2017. She delivered a viable male infant with scores of 8 at 1 minute and 9 at 5 minutes. Her section with tubal ligation was performed under general anesthesia since her spinal did not work. Post-operatively, she was given a TUBE ROLLER pump which did help her pain. This morning, she was complaining of nausea and dizziness when she moved. She was given a scopolamine patch and she has been up to the shower and is passing flatus now. Pain is fairly well-controlled with [place] and ibuprofen. She is breast-feeding. I was called by her nurse this evening and she is requesting discharge since her baby is being [facility] due to seizure activity. She will be given a prescription for [place] and Ibuprofen. MAPS was checked. She is instructed to follow up with Dr. Hsu on Sun. or . for staple removal. Routine instructions are given. She is advised to call the office if she has any questions or concerns prior to her postoperative visit. Procedures: Repeat low transverse section with bilatera partial salpingectomy under general anesthesia on 12/28/2017 Patient Condition at Discharge: Stable Plan - Discharge Summary Discharge Rx Participant: Yes New Discharge Prescriptions: New HYDROcodone/APAP 5-325MG [[place] 5-325] 1 each PO Q4HR PRN #42 tab PRN Reason: Moderate Pain Ibuprofen [Motrin] 600 mg PO Q6HR PRN #60 tab PRN Reason: Mild Pain Or Fever >= 100.5 Continue Rnf-Gtny-Xtxnk Acid [-U Capsule (formulary)] 1 cap PO DAILY Discharge Medication List Psw-[id number]-Lbnxl Acid [-U Capsule (formulary)] 1 cap PO DAILY [History] HYDROcodone/APAP 5-325MG [[place] 5-325] 1 each PO Q4HR PRN #42 tab 12/29/17 [Rx] Ibuprofen [Motrin] 600 mg PO Q6HR PRN #60 tab 12/29/17 [Rx] Follow up Appointment(s)/Referral(s): Ray Hsu MD [STAFF PHYSICIAN] - 1-2 Days Activity/Diet/Wound Care/Special Instructions: Instructions 1. Do not begin any exercise program for 3 weeks. 2. Do not resume sexual relations for 3 weeks or longer if uncomfortable. 3. You may take tub baths or showers at any time. 4. You may use tampons if desired after 3 weeks. 5. Keep the area of episiotomy (stitches) clean and dry. 6. If you are not nursing, wear a good fitting, supportive bra during the day and limit fluid intake for at least 1 week to prevent breast engorgement. 7. Call the office, [phone], within the next week to make appointment for your 6 week checkup if it has not already been made. 8. Report any of the following occurrences to the doctor promptly: a. Heavy, excessive bleeding b. Chills, fever c. Burning or frequency of urination d. Pain or redness and breasts if nursing e. Increasing pain or swelling in episiotomy (stitches). In addition to the above instructions, the following additional should be followed: 1. No heavy lifting or straining (exercising) until after 6 week checkup. 2. Keep abdominal incision clean and dry: You may wear a dressing if more comfortable. 3. Make office appointment for 10 days after going home or as instructed by her doctor. Discharge Disposition: HOME SELF-CARE
[2017-12-29 22:20] VITALS: BP 121/71; PULSE 100; RESP 18; TEMP 97.5
--- NOTE | 2017-12-30 23:47 | P.PN ---
Progress Note - Text Progress Note Date: 12/29/17 Patient seen and examined postop day #1 from section with tubal ligation. Patient had a Duramorph spinal however converted to general endotracheal anesthesia. Patient has no motor or sensory deficits, ambulating, pain is controlled with IV medication.
== END 2017-12-29 22:05 | disposition home or self-care (01) | DRG 785 ==
LOC: 4FBP 05:35
PROVIDERS: ADMIT Obstetrics & Gynecology; ATTEND Obstetrics & Gynecology
PROC: 0UB70ZZ Excision of Bilateral Fallopian Tubes, Open Approach (ICD-10-PCS; 2017-12-28)
PROC: 10D00Z1 Extraction of Products of Conception, Low, Open Approach (ICD-10-PCS; principal; 2017-12-28 08:00)
DX: O34.211 Maternal care for low transverse scar from previous cesarean delivery (principal); Z37.0 Single live birth; O99.214 Obesity complicating childbirth; E66.01 Morbid (severe) obesity due to excess calories; O99.344 Other mental disorders complicating childbirth; F41.9 Anxiety disorder, unspecified; Z30.2 Encounter for sterilization; Z3A.39 39 weeks gestation of pregnancy
CPT/HCPCS: 85025; 86850; 86900; 86901; 88302; 88307

== ENCOUNTER → 2019-10-30 | Outpatient (CLI) | payer SELFPAY | END | disposition home or self-care (01) | LOC: LABWHC1 11:19 | PROVIDERS: ATTEND Emergency Medicine | DX: Z20.828 Contact with and (suspected) exposure to other viral communicable diseases (principal) | CPT/HCPCS: U0003; C9803 ==

== ENCOUNTER → 2021-01-07 | Outpatient (CLI) | payer BC ==
[2021-01-07 09:43] LABS: HCT 40.3 % (34.0-46.0); MCH 28.7 pg (25.0-35.0); MCHC 32.4 g/dL (31.0-37.0); MCV 88.6 fL (80.0-100.0); Mean Platelet Volume 7.5; Platelet Count 256 k/uL (150-450); RBC 4.55 m/uL (3.80-5.40); RDW 13.9 % (11.5-15.5); WBC 12.5 k/uL (3.8-10.6)
[2021-01-07 10:06] LABS: ALT 18 U/L (4-34); AST 18 U/L (14-36); African American GFR (CKD) >90 (>60 ml/min/1.73 sqM); Albumin 3.9 g/dL (3.5-5.0); Alkaline Phosphatase 101 U/L (38-126); Blood Urea Nitrogen 18 mg/dL (7-17); Calcium 9.1 mg/dL (8.4-10.2); Carbon Dioxide 17 mmol/L (22-30); Glucose 119 mg/dL (74-99); Magnesium 2.1 mg/dL (1.6-2.3); Non-African American GFR(CKD) >90 (>60 ml/min/1.73 sqM); Total Bilirubin 0.2 mg/dL (0.2-1.3)
[2021-01-07 10:17] LABS: Anion Gap 10 mmol/L; Chloride 110 mmol/L (98-107); Potassium 3.8 mmol/L (3.5-5.1); Sodium 137 mmol/L (137-145)
[2021-01-07 10:24] LABS: INR 0.9 (<1.2); Partial Thromboplastin Time 25.2 sec (22.0-30.0); Prothrombin Time 9.9 sec (9.0-12.0)
[2021-01-07 16:00] LABS: % Iron Saturation 12.89 (12.00-45.00); Iron 52 ug/dL (50-170); Total Iron Binding Capacity 400 ug/dL (228-460)
[2021-01-07 16:01] LABS: LDL Cholesterol,Calculated 70.3 mg/dL (0.0-131.0); Prealbumin 22.8 mg/dL (18.0-42.0)
== END | disposition home or self-care (01) ==
LOC: LABPAT 09:06
PROVIDERS: ATTEND Surgery Plastic and Reconstructive Surgery
DX: Z01.812 Encounter for preprocedural laboratory examination (principal); E66.01 Morbid (severe) obesity due to excess calories; E89.1 Postprocedural hypoinsulinemia; D50.8 Other iron deficiency anemias; E44.0 Moderate protein-calorie malnutrition; E55.9 Vitamin D deficiency, unspecified; K74.1 Hepatic sclerosis; N19 Unspecified kidney failure; K50.90 Crohn's disease, unspecified, without complications; Z71.51 Drug abuse counseling and surveillance of drug abuser
CPT/HCPCS: 84255; 84134; 84425; 80061; 80053; 82607; 82728; 82525; 82746; 83540; 83550; 83735; 84100; 84443; 84590; 84630; 85027; 85610; 85730; 82306; 80323; 83970; 83036; 80307; 93005; G0482

== ENCOUNTER 2021-01-27 06:52 | Day surgery (SDC) | payer BC ==
[2021-01-26 11:22] VITALS: BMI 47.0
[2021-01-27] MEDS ORDERED: LACTATED RINGERS 1,000 ML IV ONE (07:13)
[2021-01-27 07:24] VITALS: RESP 16; TEMP 96.7
[2021-01-27] MEDS ORDERED: LACTATED RINGERS 1,000 ML IV SCH (07:32)
[2021-01-27] MEDS ORDERED: fentaNYL (PF) 50 MCG/ML 2 ML AMP ONE (07:52)
[2021-01-27] MEDS ORDERED: MIDAZOLAM 2 MG/2 ML VIAL ONE (07:52)
--- NOTE | 2021-01-27 08:52 | P.PCN ---
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 Condition: stable Complication: none. Description of the procedure procedure risk and benefits discussed with the patient and family, consent signed. Patient and the procedure area placed in lateral position , back prepped with chlorhexidine 3 times been local infiltration of the skin and subcutaneous tissue with lidocaine 1% , then patient placed in the left lateral position, local infiltration of the skin and subcu interstitial with lidocaine 1% 5 ML then multiple attempts done to get the cerebrospinal fluid at L4 5 level and at L5-S1 was not successful, using 22- gauge 5 inches quickie Needle, was not able to get the cerebrospinal fluid then after that we transfer the patient to the procedure table, placed in prone position and we agreed prepped and draped again, and I tried to do the lumbar puncture using fluoroscopy and under fluoroscopy guidance, multiple attempts done to get the cerebrospinal fluid was not successful, candidate to body habitus and stop [place] fluoroscopy image there was no CSF flow, even though I used a 22-gauge 7 inch Quincke-type needle, I was not able to get cerebrospinal fluid, the procedure was aborted, I tried more than 40 minutes to do the procedure, and it was unsuccessful,
[2021-01-27] MEDS ORDERED: IV FLUID CONTINUATION 1,000 ML IV ONE (08:54)
[2021-01-27] MEDS ORDERED: ONDANSETRON 4 MG/2 ML VIAL IVP ONE (08:59)
[2021-01-27 09:25] VITALS: BP 125/83; PULSE 82
--- NOTE | 2021-01-27 09:25 | FL ---
EXAMINATION TYPE: FL guided pain mgmt statistic DATE OF EXAM: 01/27/2021 HISTORY: Fluoroscopy time 1 minute and 17 seconds of fluoroscopy provided. IMPRESSION: 1. Fluoroscopy time.
[2021-01-27] MEDS ORDERED: LIDOCAINE 1% INJ 10MG/ML (20 ML MDV) ONE (10:07)
== END 2021-01-27 09:59 | disposition home or self-care (01) ==
LOC: ORPAIN 06:52
PROVIDERS: ATTEND Specialist
DX: G93.2 Benign intracranial hypertension (principal)
CPT/HCPCS: 81025; 62270; J2250; J2405; J2001 ×2; J3010; 99152; 99153

== ENCOUNTER 2021-01-31 07:39 | Day surgery (SDC) | payer BC ==
[2021-01-26 11:36] VITALS: BMI 47.0
--- NOTE | 2021-01-31 06:55 | P.GSHP ---
History of Present Illness H&P Date: 01/31/21 CHIEF COMPLAINT: GERD HISTORY OF PRESENT ILLNESS: The patient is a 30-year-old female who presents reports gastroesophageal reflux disease. Upper endoscopy was offered for further evaluation and management. PAST MEDICAL HISTORY: Please see list. PAST SURGICAL HISTORY: Please see list. MEDICATIONS: Please see list. ALLERGIES: Please see list. SOCIAL HISTORY: No illicit drug use FAMILY HISTORY: No reports of Crohn disease or ulcerative colitis. REVIEW OF ORGAN SYSTEMS: CONSTITUTIONAL: No reports of fevers or chills. GI: Denies any blood in stools or constipation. PHYSICAL EXAM: VITAL SIGNS: Stable GENERAL: Well-developed and pleasant in no acute distress. HEENT: No scleral icterus. Extraocular movements grossly intact. Moist buccal mucosa. NECK: Supple without lymphadenopathy. CHEST: Unlabored respirations. Equal bilateral excursions. CARDIOVASCULAR: Regular rate and rhythm. Distal 2+ pulses. ABDOMEN: Soft, nondistended. MUSCULOSKELETAL: No clubbing, cyanosis, or edema. ASSESSMENT: 1. Gastroesophageal reflux disease PLAN: 1. Recommend proceeding with an upper endoscopy Past Medical History Past Medical History: No Reported History Additional Past Medical History / Comment(s): intracranium hypertension, headaches. History of Any Multi-Drug Resistant Organisms: None Reported Past Surgical History: Section, Tubal Ligation Additional Past Surgical History / Comment(s): csection X2 Past Anesthesia/Blood Transfusion Reactions: Motion Sickness, Postoperative Nausea & Vomiting (PONV) Smoking Status: Never smoker - Past Family History Father Family Medical History: No Reported History Medications and Allergies Home Medications Medication Instructions Recorded Confirmed Type Cholecalciferol [Vitamin D3 (25 100 mcg PO DAILY 01/26/21 01/26/21 History Mcg = 1000 Iu)] acetaZOLAMIDE [Diamox] 250 mg PO QID 01/26/21 01/26/21 History Allergies Allergy/AdvReac Type Severity Reaction Status Date / Time No Known Allergies Allergy Verified 01/27/21 07:15
[~2021-01-31 07:39] MED LIST: LACTATED RINGERS 1,000 ML IV SCH; ONDANSETRON 4 MG/2 ML VIAL ONE
[2021-01-31] MEDS ORDERED: ONDANSETRON 4 MG/2 ML VIAL ONE (08:21)
[2021-01-31] MEDS ORDERED: PROPOFOL 10 MG/ML 20 ML VIAL IV ONE (08:29)
[2021-01-31 08:33] VITALS: TEMP 97.1
--- NOTE | 2021-01-31 08:59 | P.PCN ---
Date of Procedure: 01/31/21 Description of Procedure: PREOPERATIVE DIAGNOSIS: Gastroesophageal reflux disease. Morbid obesity. Anxiety disorder POSTOPERATIVE DIAGNOSIS: Morbid obesity. Gastritis. Gastroesophageal reflux disease. Diaphragmatic hiatal hernia Anxiety disorder OPERATION: Esophagogastroduodenoscopy with biopsies along antrum. SURGEON: Teresa Mantilla MD ANESTHESIA: MAC. INDICATIONS: The patient is a 30-year-old female who presents with a history of reflux disease. Benefits and risks of the procedure were described. Informed consent was obtained. DESCRIPTION: The patient was brought into the endoscopy suite and laid in the left lateral decubitus position. An Olympus gastroscope was passed along the posterior oropharynx down to the distal esophagus where the squamocolumnar junction was encountered at 38 cm from the incisors. The stomach was entered and no bile reflux was found. Additional findings are listed below. Biopsies with cold forceps were obtained of the antrum. The first through third portion of the duodenum was examined and unremarkable. Retroflexion of the scope confirmed Hill grade 3 lower esophageal valve. The squamocolumnar junction demonstrated LA grade B erosive esophagitis. The stomach was desufflated. The patient tolerated the procedure well. FINDINGS: Squamocolumnar junction 38 cm from the incisors. Diaphragmatic hiatus at 39 cm. Hiatal hernia, 1 cm Hill grade 2 lower esophageal valve. LA grade B erosive esophagitis. No active duodenitis. Chronic gastritis RECOMMENDATIONS: Upper endoscopy as needed. Plan - Discharge Summary Discharge Rx Participant: No New Discharge Prescriptions: New Omeprazole [PriLOSEC] 40 mg PO DAILY #14 cap Continue acetaZOLAMIDE [Diamox] 250 mg PO QID Cholecalciferol [Vitamin D3 (25 Mcg = 1000 Iu)] 100 mcg PO DAILY Discharge Medication List Cholecalciferol [Vitamin D3 (25 Mcg = 1000 Iu)] 100 mcg PO DAILY 01/26/21 [History] acetaZOLAMIDE [Diamox] 250 mg PO QID 01/26/21 [History] Omeprazole [PriLOSEC] 40 mg PO DAILY #14 cap 01/31/21 [Rx] Follow up [facility]ment[facility] [facility] [place] - [place] Patient Instructions/Handouts: Gastritis (DC), Diet for Stomach Ulcers and Gastritis (GEN), Hiatal Hernia (ED), Gastroesophageal Reflux Disease (DC) Discharge Disposition: HOME SELF-CARE
[2021-01-31 09:32] VITALS: BP 123/81; PULSE 99; RESP 16
== END 2021-01-31 09:55 | disposition home or self-care (01) ==
LOC: ORWHC2ENDO 07:39
PROVIDERS: ATTEND Surgery Plastic and Reconstructive Surgery
DX: K21.9 Gastro-esophageal reflux disease without esophagitis (principal); F41.9 Anxiety disorder, unspecified; K44.9 Diaphragmatic hernia without obstruction or gangrene; E66.01 Morbid (severe) obesity due to excess calories; K29.50 Unspecified chronic gastritis without bleeding; Z79.899 Other long term (current) drug therapy
CPT/HCPCS: 81025; 88305; 43239; J2405; J2704

== ENCOUNTER → 2021-02-07 | Outpatient (CLI) | payer BC ==
[2021-02-07 11:27] VITALS: BMI 56.8
== END ==
LOC: BARWHC3 08:45
PROVIDERS: ATTEND Surgery Plastic and Reconstructive Surgery
DX: Z71.3 Dietary counseling and surveillance (principal); Z68.43 Body mass index [BMI] 50.0-59.9, adult
CPT/HCPCS: 97804

== ENCOUNTER → 2021-04-21 | Outpatient (CLI) | payer BC ==
[2021-04-21 15:08] LABS: Basophils # (A) 0.02 X 10*3/uL (0.00-0.10); Basophils % (A) 0.2 %; Eosinophils # (A) 0.15 X 10*3/uL (0.04-0.35); Eosinophils % (A) 1.3 %; HCT 42.2 % (37.2-46.3); HGB 13.6 g/dL (12.0-15.0); Immature Grans, Automated 0.3 %; Lymphocytes # (A) 2.67 X 10*3/uL (0.90-5.00); Lymphocytes % (A) 23.3 %; MCH 28.3 pg (27.0-32.0); MCHC 32.2 g/dL (32.0-37.0); MCV 87.7 fL (80.0-97.0); Monocytes # (A) 0.48 X 10*3/uL (0.20-1.00); Monocytes % (A) 4.2 %; NRBC Per 100 WBC 0 /100 WBCS (0.0-0.0); Neutrophils # (A) 8.12 X 10*3/uL (1.80-7.70); Neutrophils % (A) 70.7 %; Platelet Count 273 X 10*3/uL (140-440); RBC 4.81 X 10*6/uL (4.10-5.20); RDW 13.9 % (11.5-14.5); WBC 11.48 X 10*3/uL (4.50-10.00)
[2021-04-21 16:15] LABS: African American GFR (CKD) 136.9 (60.0-200.0); Albumin 4.2 g/dL (3.8-4.9); Albumin/Globulin Ratio 1.51 (1.60-3.17); Anion Gap 13.7 mmol/L (10.00-18.00); BUN/Creat Ratio 23.94 Ratio (12.00-20.00); Blood Urea Nitrogen 16.3 mg/dL (9.0-27.0); Calcium 9.5 mg/dL (8.7-10.3); Carbon Dioxide 19.2 mmol/L (20.0-27.5); Globulin 2.8 g/dL (1.6-3.3); Non-African American GFR(CKD) 118.2 (60.0-200.0); Total Bilirubin 0.3 mg/dL (0.30-1.20); Total Protein 7.1 g/dL (6.2-8.2)
[2021-04-22 12:38] LABS: Coronavirus SARS CoV-2 Not Detected (Not Detected)
== END | disposition home or self-care (01) ==
LOC: LABWHC1 09:22
PROVIDERS: ATTEND Surgery Plastic and Reconstructive Surgery
DX: Z01.812 Encounter for preprocedural laboratory examination (principal); Z20.822 Contact with and (suspected) exposure to COVID-19
CPT/HCPCS: 80053; 85025; 36415; U0003; C9803; U0005

== ENCOUNTER 2021-04-25 09:16 | Inpatient (IN) | payer BC ==
--- NOTE | 2021-04-25 08:06 | P.GSHP ---
History of Present Illness H&P Date: 04/25/21 CHIEF COMPLAINT: Morbid obesity HISTORY OF PRESENT ILLNESS: Deborah Ojeda is a 30-year-old female who comes with lifelong morbid obesity. In October of 2019, she was diagnosed with fluid on the brain and spine. She has troubles with binge eating. She has worked with a therapist. She lost 80 pounds when she was younger attempting weight loss. She reports new stressors with kids and a new job. She is seeing a counselor. She is seeking surgical weight loss. She denies moderate heartburn. She reports back pain. She denies hip pain, knee pain, ankle or foot pain. She denies chronic diarrhea. No reports of ulcerative colitis or Crohns disease in her family. She denies family history of stomach or esophageal cancer. She denies deep venoud thrombosis in herself. Her grandfather has diabetes and obesity. Her grandmother had colon resection due to prolapse. Her personal highest weight is 372 pounds. She is looking into the sleeve gastrectomy. At height of 5 feet 6 inches, her ideal body weight is 154 pounds. Her highest weight was 372 pounds, body mass index of 60.2. She comes in 355 pounds. Her body mass index is 57.5. She is 201 pounds overweight. PAST MEDICAL HISTORY: 1. Morbid obesity due to excess calories 2. Body mass index of 60.2, initial 3. Osteoarthritis of the lower back 4. Postoperative nausea and vomiting 5. Pseudotumor cerebri PAST SURGICAL HISTORY: 1. section x 2 2. Tubal ligation HOME MEDICATIONS: Home Medications Medication Instructions Recorded Confirmed Cholecalciferol [Vitamin D3 (25 100 mcg PO DAILY 01/26/21 04/21/21 Mcg = 1000 Iu)] acetaZOLAMIDE [Diamox] 250 mg PO QID 01/26/21 04/21/21 Calcium Carbonate [Calcium] 600 mg PO TID 04/20/21 04/21/21 Multivitamins, Thera [Multivitamin 1 tab PO DAILY 04/20/21 04/21/21 (formulary)] ALLERGIES: Allergies Allergy/AdvReac Type Severity Reaction Status Date / Time No Known Allergies Allergy Verified 04/21/21 08:34 SOCIAL HISTORY: Denies past tobacco use. FAMILY HISTORY: No family history of ulcerative colitis disease or Crohn's disease. Family history of morbid obesity. No lupus in the family. No reports of stomach or esophageal cancer. REVIEW OF ORGAN SYSTEMS: CONSTITUTIONAL: At height of 5 feet 6 inches, her ideal body weight is 154 pounds. Her highest weight was 372 pounds, body mass index of 60.2. She comes in 355 pounds. Her body mass index is 57.5. She is 201 pounds overweight. HEENT: Denies any active troubles with vision or hearing. ENDOCRINE: Denies diabetes. No hypothyroidism. CARDIOVASCULAR: Denies past reports of palpitations or heart attacks or chest pain. RESPIRATORY: Denies shortness of breath. GASTROINTESTINAL: Denies any bright red blood per rectum. No diarrhea. No constipation. GENITOURINARY: Denies bladder urgency. No recent blood in urine MUSCULOSKELETAL: Has lower back pain and joint pain. Has osteoarthritis of the knees. History of bilateral lower extremity edema. NEURO: No headaches. No seizure disorders. PSYCH: Denies depression. No suicidal ideation. RHEUMATOLOGIC: No lupus. No rheumatoid arthritis. HEMATOLOGIC: Denies any abnormal bleeding or bruising. SKIN: No rash. No skin cancer. PHYSICAL EXAM: VITAL SIGNS: Height 5 foot 6 inches, weight 355 pounds. BMI 57.5 GENERAL: Well-developed in no acute distress. HEENT: No scleral icterus. Extraocular movements grossly intact. Hears conversational speech. No nasal drainage. NECK: Supple without lymphadenopathy. CHEST: Nonlabored respirations with equal bilateral excursions. CARDIOVASCULAR: Regular rate and regular rhythm. Distal 2+ pulses. ABDOMEN: Obese, soft, nontender, nondistended. MUSCULOSKELETAL: No clubbing, cyanosis. NEURO: No focal or lateralizing signs. Cranial nerves 2 through 12 grossly within normal limits. PSYCH: Appropriate affect. Alert and oriented to person, place and time. SKIN: Good skin turgor. Well perfused. ASSESSMENT: 1. Morbid obesity due to excess calories 2. Body mass index of 60.2, initial 3. Osteoarthritis of the lower back 4. Postoperative nausea and vomiting 5. Pseudotumor cerebri PLAN: 1. Bariatric options between a sleeve, band and a Chase-en-Y gastric bypass were reviewed in detail. The patient elected for a sleeve gastrectomy. Robotic assisted approach described. 2. The [place] [facility] Data was also reviewed with benefits and risks as described. 3. An 8 page second-generation bariatric consent form was reviewed in detail including potential of bleeding, infection, leaks, adequate weight loss, nutritional deficiencies which the patient demonstrated understanding of the risks. 4. A 2 week high-protein low caloric 800 kcal diet described to address hepatomegaly. 5. Preoperative labs including complete metabolic panel and CBC with type and screen recommended. 6. DVT prophylaxis per [place] [facility]. 7. Antibiotic prophylaxis. 8. Inpatient hospitalization anticipated for more than 2 nights. 9. All questions and concerns were addressed with the patient. 10. She is at elevated risk for perioperative complications for any additional surgeries that may occur within 30 days of her index operation. 11. NSQIP ACS calculator risks performed. Patient's above average risk for serious complications, any complications, readmission Past Medical History Past Medical History: GERD/Reflux Additional Past Medical History / Comment(s): intracranial hypertension from excess spinal fluid, frequent headaches, low iron, having iron transfusion -managed by Dr. Ivey, had covid end of - part of Mar-mild sx. @that time History of Any Multi-Drug Resistant Organisms: None Reported Past Surgical History: Section, Tubal Ligation Additional Past Surgical History / Comment(s): csection X2. unsuccessful lumbar puncture on 01/27/21. EGD Past Anesthesia/Blood Transfusion Reactions: Motion Sickness, Postoperative Nausea & Vomiting (PONV) Smoking Status: Never smoker - Past Family History Father Family Medical History: No Reported History Medications and Allergies Home Medications Medication Instructions Recorded Confirmed Type Cholecalciferol [Vitamin D3 (25 100 mcg PO DAILY 01/26/21 04/21/21 History Mcg = 1000 Iu)] acetaZOLAMIDE [Diamox] 250 mg PO QID 01/26/21 04/21/21 History Calcium Carbonate [Calcium] 600 mg PO TID 04/20/21 04/21/21 History Multivitamins, Thera [Multivitamin 1 tab PO DAILY 04/20/21 04/21/21 History (formulary)] Allergies Allergy/AdvReac Type Severity Reaction Status Date / Time No Known Allergies Allergy Verified 04/21/21 08:34
[~2021-04-25 09:16] MED LIST changes: +ACETAMINOPHEN TAB 500 MG TAB PO PRN; +CHLORHEXIDINE GLUCONATE 15 ML CUP MUCOUS MEM PRN; +DEXAMETHASONE SOD PHOSPHATE 4 MG/ML 1 ML VIAL IV ONE; +ENOXAPARIN 40 MG/0.4 ML SYRINGE SQ PRN; +GABAPENTIN 300 MG CAP PO PRN; +MIDAZOLAM 2 MG/2 ML VIAL IV PRN; +ONDANSETRON 4 MG/2 ML VIAL IVP ONE; -ONDANSETRON 4 MG/2 ML VIAL ONE; +PANTOPRAZOLE 40 MG/10 ML VIAL IVP PRN; +SCOPOLAMINE 1.5MG/72HR PATCH TRANSDERM ONE; +SCOPOLAMINE 1.5MG/72HR PATCH TRANSDERM STA
--- NOTE | 2021-04-25 10:29 | P.HPADDEND ---
H&P Addendum H&P Addendum Date: 04/25/21 Patient reports gaining weight doing the last 3 months. She reports recent weight loss of 25 pounds over 2 weeks high-protein low-carb diet. Present weight 339 pounds.
[2021-04-25] MEDS ORDERED: LIDOCAINE 1% INJ 10MG/ML (20 ML MDV) ONE (10:39)
[2021-04-25] MEDS ORDERED: PROPOFOL 10 MG/ML 20 ML VIAL IV ONE (10:39)
[2021-04-25] MEDS ORDERED: HYDROmorphone (PF) 1 MG/ML ONE (10:39)
[2021-04-25] MEDS ORDERED: fentaNYL (PF) 50 MCG/ML 2 ML AMP ONE (10:39)
[2021-04-25] MEDS ORDERED: ROCURONIUM 10 MG/ML (5 ML VIAL) IV ONE (10:39)
[2021-04-25] MEDS ORDERED: SUCCINYLCHOLINE CHLORIDE VIAL 200 MG/10 ML VIAL IV ONE (10:39)
[2021-04-25] MEDS ORDERED: MIDAZOLAM 2 MG/2 ML VIAL ONE (10:39)
[2021-04-25] MEDS ORDERED: KETAMINE 10 MG/ML 20 ML VIAL ONE (10:39)
[2021-04-25] MEDS ORDERED: BUPIVACAIN-EPI 0.25%-1:200,000 30 ML VIAL SQ ONE (11:17)
[2021-04-25] MEDS ORDERED: NALOXONE 0.4 MG/ML 1 ML VIAL IV PRN (12:36)
[2021-04-25] MEDS ORDERED: diphenhydrAMINE 50 MG/ML 1 ML VIAL IVP PRN (12:38)
--- NOTE | 2021-04-25 12:47 | P.OP ---
Date of Procedure: 04/25/21 Description of Procedure: SURGEON: IDALMIS JIMENEZ MD PREOPERATIVE DIAGNOSES: 1. Morbid obesity due to excess calories 2. Body mass index of 60.2, initial 3. Osteoarthritis of the lower back 4. Postoperative nausea and vomiting 5. Pseudotumor cerebri POSTOPERATIVE DIAGNOSES: 1. Morbid obesity due to excess calories 2. Body mass index of 60.2, initial 3. Osteoarthritis of the lower back 4. Postoperative nausea and vomiting 5. Pseudotumor cerebri OPERATION: 1. Robotic assisted daVinci Xi laparoscopic sleeve gastrectomy with 40-Montserratian bougie, multiport. 2. Intraoperative esophagogastroduodenoscopy. ANESTHESIA: Gen. local anesthetic ESTIMATED BLOOD LOSS: 5 mL SPECIMENS REMOVED: Sleeve gastrectomy COMPLICATIONS: None. FINDINGS: 1. Negative intraoperative esophagogastrojejunoscopy leak test. 2. No hepatomegaly and no large hiatus hernia. 3. Total of 7 staplers used including 2 - 60 mm green robot wilmer and 5 - 60 mm blue robot loads used to create the gastric sleeve. 4. Sleeve gastrectomy, 30 x 4 cm INDICATIONS: Deborah Ojeda is a 30-year-old female who comes with lifelong morbid obesity. Results of her morbid obesity, she is developed increased intracranial pressure and fluid around the brain, pseudotumor cerebri. She also reports osteoarthritis of the lower back. She is looking into the sleeve gastrectomy. At height of 5 feet 6 inches, her ideal body weight is 154 pounds. Her highest weight was 372 pounds, body mass index of 60.2. She comes in 319 pounds. Her body mass index is 57.5. She is 201 pounds overweight. All surgical options for morbid obesity had been described using the [place] [facility] comorbidity resolution including complication risk score. A second-generation bariatric consent form was described in detail including the possibility of protein malnutrition, leaks, gastric stricture, venous thrombosis, gastroesophageal reflux disease, need for further surgery for which she demonstrated understanding. Benefits and risks of the procedure were described at length. Informed consent was obtained. DESCRIPTION: The patient was brought into the operating room theater. Preoperatively she had received Lovenox subcutaneously for DVT prophylaxis. Additionally she had Peridex oral solution as an oral decontaminant. After general induction, the abdomen was prepped and draped in standard sterile fashion. An Ioban draping was placed along the abdomen. A robotic da Kailee Xi system was prepped and primed. At 15 cm from the xiphoid, proposed port sites were marked with indelible marker along the anterior axillary line bilaterally, mid axillary line bilaterally with each ports were marked 10 to 15 cm from each other. The robotic stapler port was marked for the right midclavicular line. A 5 mm 0 degrees laparoscopic trocar entry was performed along the left upper quadrant. The abdomen was insufflated to 15 mmHg pressure was tolerated well. Diagnostic laparoscopy demonstrated no injury to bowel, viscera, or mesentery. No evidence of large hiatus hernia was identified. The liver edge was sharp consistent with 2 week low-carb high-protein diet. A 8 mm port was placed along the left upper abdominal wall after exchanging the 5 mm port. A separate 8 mm port was placed along the left lateral abdominal wall. Please note that the ports were placed at least 20 cm away from the target anatomy. Care was taken to check each robotic arms were safely away from collision with the bed or the patient. At the epigastrium, a medium sized Seng liver retractor was placed under direct visualization with the Iron Adult Education Professional placed under the right shoulder of the patient. Next, 12-mm robot stapler port was placed along the right upper quadrant. The camera 8-mm port was maintained along the epigastrium. The patient was repositioned in reverse Trendelenburg position at 21-degrees after lowering the bed. The robot was docked along the left side of the patient. Using a grasper for arm 4, a vessel sealer for arm 3, including grasper for arm 1, the robotic system was docked and primed as described. Instruments were interchanged by the financial planning assistant for stapler loads. The camera was placed at 30- degrees down. I had sat at the console. The pylorus was identified and 6 cm proximally along the greater curvature of the stomach, the short gastrics were mobilized upwards to the angle of His using a vessel sealer. Hemostasis was excellent during this portion of the procedure. Next, the upper pole of the stomach was adherent to the left angelica, which was gently dissected free using atraumatic grasper. I went to the head of the bed and placed 40-Montserratian blunt bougie into the stomach. The bougie was readjusted by the nurse board certified family physician. Robotic stapler green load 60 mm 2 followed by blue 60 mm x 5 loads were used to create the sleeve. Initial firing was across the antrum of the stomach towards the angle of His. The staple line was linear without corkscrewing. The space from the angularis incisura of the sleeve was approximately 4 cm. I then went to the head of the bed to perform the intraoperative esophagogastroduodenoscopy leak test. The bougie was withdrawn. The upper pole of the stomach was bathed using normal saline solution. The scope was withdrawn with careful inspection along the staple line for which no leaks were found along the entire length. Additionally,the sleeve was completely hemostatic without any encroachment along the angularis incisura. Its topology was a soft "J". No stricture was encountered upon placement of the scope. The GI tract was desufflated. The patient tolerated this portion of the procedure well. The scope was completely withdrawn. The robot was undocked. I then rescrubbed into case, whereby the irrigation fluid was aspirated from the abdominal cavity. Tisseel fibrin sealant was placed along the entire staple length. Once dried the Seng liver retractor was removed. Attention was now brought to removal of the specimen. The distal end of the sleeve gastrectomy specimen was brought out through the 12 mm port at the left upper quadrant. The specimen was gently removed en total. No contamination had occurred during this process. All instruments and pneumoperitoneum including irrigation fluid was removed from the abdominal cavity. The 12 mm port site was irrigated with diluted hydrogen peroxide. The final incisions were closed using subcuticular interrupted suture of 4-0 Monocryl. Exofin was applied to the skin once the skin had been cleansed. OptiFoam dressing was placed along the stomach extraction site. The sleeve specimen was measured and checked also for leaks which none were found. At the end of the procedure, needle, sponge, and instrument count was verified correct by the surgical instrument repair specialist. The patient was taken to the postanesthesia care unit in stable condition. She had tolerated the procedure well. Intraoperative films and findings were reviewed with the patient's family.
[2021-04-25] MEDS: HYDROmorphone 0.5 MG/0.5 ML SYRINGE IVP PRN ×2 (12:51→15:38)
[2021-04-25] MEDS ORDERED: LACTATED RINGERS 1,000 ML IV ONE (14:30)
[2021-04-25] MEDS ORDERED: SODIUM CHLORIDE 0.9% 2,000 ML IV ONE (16:00)
[2021-04-25] MEDS: METOCLOPRAMIDE 5 MG/ML 2 ML VIAL IVP SCH (17:47)
[2021-04-25] MEDS: ONDANSETRON 4 MG/2 ML VIAL IVP SCH (17:47)
[2021-04-25] MEDS: DEXAMETHASONE SOD PHOSPHATE 4 MG/ML 1 ML VIAL IVP SCH (17:47)
[2021-04-25] MEDS: SIMETHICONE 40 MG/0.6 ML DROPS 2,000 MG/30 ML BOTTLE PO SCH (17:51)
[2021-04-25] MEDS: HYOSCYAMINE ORAL DROPS 1.875 MG/15 ML BOTTLE PO SCH (17:51)
[2021-04-25] MEDS ORDERED: ceFAZolin 3 GM in SODIUM CHLORIDE 0.9% 100 ML IVPB SCH (18:00)
[2021-04-25] MEDS: HYDROmorphone 1 MG/ML 1 ML SYRINGE IVP PRN (19:36)
[2021-04-25] MEDS: 0.9% NACL WITH KCL 20 MEQ/L 1,000 ML IV SCH (20:59)
[2021-04-25] MEDS: ACETAMINOPHEN IV (For NPO) 1,000 MG in EMPTY BAG 1 BAG IVPB SCH (20:59)
[2021-04-25] MEDS: acetaZOLAMIDE 250 MG TAB PO SCH ×2 (21:00)
[2021-04-25] MEDS: ALBUTEROL NEBULIZED 2.5 MG/3 ML INHALATION SCH ×2 (21:12→21:35)
[2021-04-26] MEDS: SIMETHICONE 40 MG/0.6 ML DROPS 2,000 MG/30 ML BOTTLE PO SCH ×3 (00:10→12:20)
[2021-04-26] MEDS: ACETAMINOPHEN IV (For NPO) 1,000 MG in EMPTY BAG 1 BAG IVPB SCH ×3 (00:10→12:19)
[2021-04-26] MEDS: HYOSCYAMINE ORAL DROPS 1.875 MG/15 ML BOTTLE PO SCH ×3 (00:10→12:20)
[2021-04-26] MEDS: DEXAMETHASONE SOD PHOSPHATE 4 MG/ML 1 ML VIAL IVP SCH ×3 (00:17→12:20)
[2021-04-26] MEDS: ONDANSETRON 4 MG/2 ML VIAL IVP SCH ×3 (00:24→12:20)
[2021-04-26] MEDS: METOCLOPRAMIDE 5 MG/ML 2 ML VIAL IVP SCH ×3 (00:25→12:19)
[2021-04-26] MEDS: HYDROmorphone 1 MG/ML 1 ML SYRINGE IVP PRN ×2 (00:34→08:58)
[2021-04-26] MEDS: 0.9% NACL WITH KCL 20 MEQ/L 1,000 ML IV SCH ×2 (04:24→07:41)
[2021-04-26] MEDS ORDERED: ENOXAPARIN 40 MG/0.4 ML SYRINGE SQ SCH (06:00)
[2021-04-26] MEDS ORDERED: DEXAMETHASONE SOD PHOSPHATE 10 MG/ML 1 ML VIAL IVP ONE (06:00)
[2021-04-26] MEDS: ALBUTEROL NEBULIZED 2.5 MG/3 ML INHALATION SCH ×3 (07:51→16:54)
[2021-04-26 07:54] VITALS: RESP 18
[2021-04-26] MEDS: acetaZOLAMIDE 250 MG TAB PO SCH ×2 (07:58→12:21)
[2021-04-26] MEDS ORDERED: 0.9% NACL WITH KCL 20 MEQ/L 1,000 ML IV SCH (08:00)
[2021-04-26] MEDS ORDERED: PANTOPRAZOLE 40 MG/10 ML VIAL IV SCH (09:00)
[2021-04-26 09:02] LABS: Basophils # (A) 0.01 X 10*3/uL (0.00-0.10); Basophils % (A) 0.1 %; Eosinophils # (A) 0 X 10*3/uL (0.04-0.35); Eosinophils % (A) 0 %; HCT 38.8 % (37.2-46.3); HGB 12.6 g/dL (12.0-15.0); Immature Grans, Automated 0.4 %; Lymphocytes # (A) 1.36 X 10*3/uL (0.90-5.00); Lymphocytes % (A) 9.9 %; MCH 28.7 pg (27.0-32.0); MCHC 32.5 g/dL (32.0-37.0); MCV 88.4 fL (80.0-97.0); Mean Platelet Volume 11.3 fL (9.5-12.2); Monocytes # (A) 0.61 X 10*3/uL (0.20-1.00); Monocytes % (A) 4.4 %; NRBC Per 100 WBC 0 /100 WBCS (0.0-0.0); Neutrophils # (A) 11.76 X 10*3/uL (1.80-7.70); Neutrophils % (A) 85.2 %; Platelet Count 240 X 10*3/uL (140-440); RBC 4.39 X 10*6/uL (4.10-5.20); RDW 14.5 % (11.5-14.5)
--- NOTE | 2021-04-26 09:13 | FL ---
EXAMINATION TYPE: FL UGI DATE OF EXAM: 04/26/2021 LIMITED UGI: CLINICAL HISTORY: Morbid Obesity, gastric sleeve surgery yesterday. TECHNIQUE: Limited UGI-esophagram is performed utilizing 30 oz of Isovue 370. A total of 31 seconds of fluoroscopic time was utilized during procedure and 31 images obtained. COMPARISON: None. FINDINGS: The patient swallowed contrast without difficulty or delay. Esophageal peristalsis and mo tility are within normal limits. There is good flow of contrast along the diaphragmatic hiatus into proximal stomach and subsequent flow through proximal anastomosis into gastric sleeve. There is minim al delay in flow from distal sleeve and anastomosis into pylorus and duodenal sweep. Patient remains asymptomatic. There is no evidence of contrast extravasation to suggest leak. IMPRESSION: No evidence of leak or significant obstruction status post recent gastric sleeve surgery.
[2021-04-26 09:46] LABS: African American GFR (CKD) 145.2 (60.0-200.0); Anion Gap 13.5 mmol/L (10.00-18.00); Blood Urea Nitrogen 7.9 mg/dL (9.0-27.0); Calcium 8.3 mg/dL (8.7-10.3); Carbon Dioxide 15.1 mmol/L (20.0-27.5); Non-African American GFR(CKD) 125.3 (60.0-200.0); Phosphorus 2.4 mg/dL (2.4-5.1)
[2021-04-26 13:56] VITALS: BMI 54.8
[2021-04-26 14:32] VITALS: BP 148/82; TEMP 98.5
--- NOTE | 2021-04-26 15:53 | P.DS ---
Providers Date of admission: 04/25/21 09:16 Expected date of discharge: 04/26/21 Attending physician: Teresa Mantilla Primary care physician: Bibiana Mayo MD Hospital Course: Discharge diagnosis 1. Morbid obesity due to excess calories 2. Body mass index of 60.2, initial 3. Osteoarthritis of the lower back 4. Postoperative nausea and vomiting 5. Pseudotumor cerebri Hospital course Deborah Ojeda is a 30-year-old female who comes with lifelong morbid obesity. Results of her morbid obesity, she is developed increased intracranial pressure and fluid around the brain, pseudotumor cerebri. She also reports osteoarthriti s of the lower back. Patient is status post Robotic assisted daVinci Xi laparoscopic sleeve gastrectomy. She tolerated surgery well. Her pain is controlled. Upper GI shows no evidence of leak or obstruction. She is tolerating her bariatric clear liquid diet. She has been up and ambulating. She is afebrile. She is stable for discharge. Physician Web Production Manager note has been reviewed by physician. Signing provider agrees with the documented findings, assessment, and plan of care. Patient Condition at Discharge: Stable Plan - Discharge Summary Discharge Rx Participant: Yes New Discharge Prescriptions: New Omeprazole [PriLOSEC] 40 mg PO DAILY #30 cap Ondansetron Odt [Zofran Odt] 4 mg PO Q8HR PRN #9 tab PRN Reason: Nausea Acetaminophen [Tylenol Extra Strength] 500 mg PO Q6H PRN #12 tablet PRN Reason: Pain bisacodyL [Dulcolax] 5 mg PO DAILY PRN #10 tab PRN Reason: Constipation Simethicone 40 mg/0.6 ml Drops [Mylicon Drops] 40 mg PO PCHS PRN #30 ml PRN Reason: Gas Continue acetaZOLAMIDE [Diamox] 250 mg PO QID Discontinued Cholecalciferol [Vitamin D3 (25 Mcg = 1000 Iu)] 100 mcg PO DAILY Multivitamins, Thera [Multivitamin (formulary)] 1 tab PO DAILY Calcium Carbonate [Calcium] 600 mg PO TID Discharge Medication List acetaZOLAMIDE [Diamox] 250 mg PO QID 01/26/21 [History] Acetaminophen [Tylenol Extra Strength] 500 mg PO Q6H PRN #12 tablet 04/26/21 [Rx] Omeprazole [PriLOSEC] 40 mg PO DAILY #30 cap 04/26/21 [Rx] Ondansetron Odt [Zofran Odt] 4 mg PO Q8HR PRN #9 tab 04/26/21 [Rx] Simethicone 40 mg/0.6 ml Drops [Mylicon Drops] 40 mg PO PCHS PRN #30 ml 04/26/21 [Rx] bisacodyL [Dulcolax] 5 mg PO DAILY PRN #10 tab 04/26/21 [Rx] Discharge Disposition: HOME SELF-CARE
[2021-04-26 17:05] VITALS: PULSE 74
[2021-04-27] MEDS ORDERED: bisacodyL 5 MG TABLET.DR PO PRN (08:00)
== END 2021-04-26 17:54 | disposition home or self-care (01) | DRG 621 ==
LOC: 2ORMAIN 09:16 → 4SSUR 16:44
PROVIDERS: ADMIT Surgery Plastic and Reconstructive Surgery; ATTEND Surgery Plastic and Reconstructive Surgery
PROC: 0DJ08ZZ Inspection of Upper Intestinal Tract, Via Natural or Artificial Opening Endoscopic (ICD-10-PCS; 2021-04-25)
PROC: 8E0W4CZ Robotic Assisted Procedure of Trunk Region, Percutaneous Endoscopic Approach (ICD-10-PCS; 2021-04-25)
PROC: 0DB64Z3 Excision of Stomach, Percutaneous Endoscopic Approach, Vertical (ICD-10-PCS; principal; 2021-04-25 10:25)
DX: E66.01 Morbid (severe) obesity due to excess calories (principal); Z68.44 Body mass index [BMI] 60.0-69.9, adult; G93.2 Benign intracranial hypertension; R11.2 Nausea with vomiting, unspecified; M19.09 Primary osteoarthritis, other specified site; Z83.3 Family history of diabetes mellitus; Z98.51 Tubal ligation status
CPT/HCPCS: 74240; 80051; 81025; 82310; 82565; 83735; 84100; 84520; 85025; 86850; 86900; 86901; 88307; 94640; 94760; 94762

== ENCOUNTER → 2021-04-29 | Outpatient (CLI) | payer BC ==
[2021-04-29 09:36] VITALS: BP 126/89; PULSE 96; TEMP 98.2; BMI 54.7
--- NOTE | 2021-04-29 10:40 | P.BASOAP ---
Subjective Progress Note Date: 04/29/21 DATE OF SERVICE: 04/29/2021 CHIEF COMPLAINT: Status post sleeve gastrectomy HISTORY OF PRESENT ILLNESS: Deborah Ojeda is a 30-year-old female who is status post sleeve gastrectomy, 04/25/2021. She is POD 4. Her pain is controlled. Her oral fluid intake is low. No infection identified. At height of 5 feet 6 inches, her ideal body weight is 154 pounds. Her highest weight was 372 pounds, body mass index of 60.2. She comes in 338 pounds from 357 pounds, 2 months ago. She has lost 18 pound in 2 months. Her body mass index is 54.7. She is 184 pounds overweight. Lifetime weight loss is 34 pounds. Percent lifetime weight loss is 15%. PHYSICAL EXAM: VITAL SIGNS: Height 5 foot 6 inches, weight 338 pounds. BMI 54.7 Vital Signs Temp 98.2 F 04/29/21 09:34 Pulse 96 04/29/21 09:34 Resp BP 126/89 04/29/21 09:34 Pulse Ox GENERAL: Well-developed in no acute distress. HEENT: No scleral icterus. Extraocular movements grossly intact. Hears conversational speech. No nasal drainage. NECK: Supple without lymphadenopathy. CHEST: Nonlabored respirations with equal bilateral excursions. CARDIOVASCULAR: Regular rate and regular rhythm. Distal 2+ pulses. ABDOMEN: Obese. Inicisons intact. No infection. MUSCULOSKELETAL: No clubbing, cyanosis. NEURO: No focal or lateralizing signs. Cranial nerves 2 through 12 grossly within normal limits. PSYCH: Appropriate affect. Alert and oriented to person, place and time. SKIN: Good skin turgor. Well perfused. Final Pathologic Diagnosis STOMACH, SLEEVE GASTRECTOMY: Benign gastric mucosa with chronic gastritis. Helicobacter pylori organisms are not identified on routine H+E sections. ASSESSMENT: 1. Morbid obesity due to excess calories 2. Body mass index of 60.2, initial to 54.7 3. Osteoarthritis of the lower back 4. Postoperative nausea and vomiting 5. Pseudotumor cerebri 6. Leukocytosis 7. Vitamin D deficiency 8. Hiatal hernia 9. Status post sleeve gastrectomy 10. Dehydration PLAN: 1. Recommend IV fluid hydration for dehydration. 2. Follow-up one week. 3. Wound care instructions reviewed. Objective - Vital Signs Vital signs: Vital Signs Temp 98.2 F 04/29/21 09:34 Pulse 96 04/29/21 09:34 Resp BP 126/89 04/29/21 09:34 Pulse Ox Intake & Output 04/28/21 04/29/21 04/29/21 18:59 06:59 18:59 Weight 153.768 kg Assessment/Plan Plan: Date: 04/29/21 Initial Weight: Initial BMI: Current Weight: 153.768 kg Current BMI: 54.7 Type of Surgery: Total Volume in Band: Previous Volume: Volume Removed: Volume Added: Band Size:
== END ==
LOC: BARWHC3 09:02
PROVIDERS: ATTEND Surgery Plastic and Reconstructive Surgery
DX: E66.01 Morbid (severe) obesity due to excess calories (principal); Z68.43 Body mass index [BMI] 50.0-59.9, adult; M47.9 Spondylosis, unspecified; R11.2 Nausea with vomiting, unspecified; G93.2 Benign intracranial hypertension; D72.829 Elevated white blood cell count, unspecified; K44.9 Diaphragmatic hernia without obstruction or gangrene; Z98.84 Bariatric surgery status; E86.0 Dehydration
CPT/HCPCS: 99211

== ENCOUNTER → 2021-04-29 | Outpatient (CLI) | payer BC ==
[2021-04-29 09:47] VITALS: BP 126/80; PULSE 90; RESP 16; TEMP 97.7
[2021-04-29] MEDS: SODIUM CHLORIDE 0.9% 1,000 ML IV SCH ×2 (09:48→10:35)
== END ==
LOC: PROCWHC3 09:31
PROVIDERS: ATTEND Surgery Plastic and Reconstructive Surgery
DX: E86.0 Dehydration (principal)
CPT/HCPCS: 96360; 96361

== ENCOUNTER → 2021-05-04 | Outpatient (CLI) | payer BC ==
[2021-05-04 13:49] VITALS: BP 126/87; PULSE 93; RESP 16; TEMP 98.4; BMI 53.2
--- NOTE | 2021-05-04 14:10 | P.BASOAP ---
Subjective Progress Note Date: 05/04/21 DATE OF SERVICE: 05/04/2021 CHIEF COMPLAINT: Status post sleeve gastrectomy HISTORY OF PRESENT ILLNESS: Deborah Ojeda is a 30-year-old female who is status post sleeve gastrectomy, 04/25/2021. She is 1 week out. She was given IV fluids due to dehydration. She still reports dark urine. She also reports occasional lower abdominal pain. She is having bowel movements at least three times since her surgery. Her upper abdominal pain resolves after eating. She is taking omeprazole. At height of 5 feet 6 inches, her ideal body weight is 154 pounds. Her highest weight was 372 pounds, body mass index of 60.2. She comes in 329 pounds unchanged from 1 week ago. Her body mass index is 53.3. She is 175 pounds overweight. Lifetime weight loss is 43 pounds. Percent lifetime weight loss is 20 %. PHYSICAL EXAM: VITAL SIGNS: Height 5 foot 6 inches, weight 329 pounds. BMI 53.3 Vital Signs Temp 98.4 F 05/04/21 13:47 Pulse 93 05/04/21 13:47 Resp 16 05/04/21 13:47 BP 126/87 05/04/21 13:47 Pulse Ox GENERAL: Well-developed in no acute distress. HEENT: No scleral icterus. Extraocular movements grossly intact. Hears conversational speech. No nasal drainage. NECK: Supple without lymphadenopathy. CHEST: Nonlabored respirations with equal bilateral excursions. CARDIOVASCULAR: Regular rate and regular rhythm. Distal 2+ pulses. ABDOMEN: Obese. No infection. MUSCULOSKELETAL: No clubbing, cyanosis. NEURO: No focal or lateralizing signs. Cranial nerves 2 through 12 grossly within normal limits. PSYCH: Appropriate affect. Alert and oriented to person, place and time. SKIN: Good skin turgor. Well perfused. ASSESSMENT: 1. Morbid obesity due to excess calories 2. Body mass index of 60.2, initial to 53.3 3. Osteoarthritis of the lower back 4. Postoperative nausea and vomiting 5. Pseudotumor cerebri 6. Leukocytosis 7. Vitamin D deficiency 8. Hiatal hernia 9. Status post sleeve gastrectomy 10. Dehydration PLAN: 1. Recommend IV fluid hydration for dehydration. 2. Follow-up in 1 month postop reviewed. 3. Avoidance of nonsteroidal anti-inflammatory drugs reviewed in detail including immediate follow-up with bariatric center for any new or increased abdominal pain. Objective - Vital Signs Vital signs: Vital Signs Temp 98.4 F 05/04/21 13:47 Pulse 93 05/04/21 13:47 Resp 16 05/04/21 13:47 BP 126/87 05/04/21 13:47 Pulse Ox Intake & Output 05/03/21 05/04/21 05/04/21 18:59 06:59 18:59 Weight 149.685 kg Assessment/Plan Plan: Date: 05/04/21 Initial Weight: 164.767 kg Initial BMI: 58.6 Current Weight: 149.685 kg Current BMI: 53.2 Type of Surgery: Total Volume in Band: Previous Volume: Volume Removed: Volume Added: Band Size:
== END ==
LOC: BARWHC3 10:49
PROVIDERS: ATTEND Surgery Plastic and Reconstructive Surgery
DX: E66.01 Morbid (severe) obesity due to excess calories (principal); Z68.43 Body mass index [BMI] 50.0-59.9, adult; M47.9 Spondylosis, unspecified; R11.2 Nausea with vomiting, unspecified; G93.2 Benign intracranial hypertension; D72.829 Elevated white blood cell count, unspecified; E55.9 Vitamin D deficiency, unspecified; K44.9 Diaphragmatic hernia without obstruction or gangrene; Z98.84 Bariatric surgery status; E86.0 Dehydration
CPT/HCPCS: 97803; 99211

== ENCOUNTER → 2021-05-04 | Outpatient (CLI) | payer BC ==
[~2021-05-04] MED LIST changes: -ACETAMINOPHEN TAB 500 MG TAB PO PRN; -CHLORHEXIDINE GLUCONATE 15 ML CUP MUCOUS MEM PRN; -DEXAMETHASONE SOD PHOSPHATE 4 MG/ML 1 ML VIAL IV ONE; -ENOXAPARIN 40 MG/0.4 ML SYRINGE SQ PRN; -GABAPENTIN 300 MG CAP PO PRN; -LACTATED RINGERS 1,000 ML IV SCH; -MIDAZOLAM 2 MG/2 ML VIAL IV PRN; -ONDANSETRON 4 MG/2 ML VIAL IVP ONE; -PANTOPRAZOLE 40 MG/10 ML VIAL IVP PRN; -SCOPOLAMINE 1.5MG/72HR PATCH TRANSDERM ONE; -SCOPOLAMINE 1.5MG/72HR PATCH TRANSDERM STA; +SODIUM CHLORIDE 0.9% 1,000 ML IV NR; +SODIUM CHLORIDE 0.9% 2,000 ML IV NR; +SODIUM CHLORIDE 0.9% 500 ML 500 ML in EMPTY BAG 1 BAG IV PRN
[2021-05-04 10:57] VITALS: BP 126/87; PULSE 93; RESP 16; TEMP 98.4
== END ==
LOC: PROCWHC3 10:50
PROVIDERS: ATTEND Surgery Plastic and Reconstructive Surgery
DX: E86.0 Dehydration (principal); Z88.6 Allergy status to analgesic agent; Z88.0 Allergy status to penicillin; Z87.891 Personal history of nicotine dependence
CPT/HCPCS: 96360; 96361

== ENCOUNTER → 2021-05-18 | Outpatient (CLI) | payer BC ==
[2021-05-18 12:58] VITALS: BP 126/83; PULSE 82; RESP 16; TEMP 97.4; BMI 51.7
--- NOTE | 2021-05-18 13:50 | P.BASOAP ---
Subjective Progress Note Date: 05/18/21 DATE OF SERVICE: 05/18/2021 CHIEF COMPLAINT: Status post sleeve gastrectomy HISTORY OF PRESENT ILLNESS: Deborah Ojeda is a 30-year-old female who is status post sleeve gastrectomy, 04/25/2021. She is less than 1 month out. She reports minor abdominal pain along the umbilicus however doing well. No reflux disease. No infection. Protein intake is 70 g daily. Weight loss of 20 pounds achieved in 1 month. At height of 5 feet 6 inches, her ideal body weight is 154 pounds. Her highest weight was 372 pounds, body mass index of 60.2. She comes in 320 pounds from 329 pounds 2 weeks ago. Her body mass index is 51.8. She is 166 pounds overweight. Lifetime weight loss is 52 pounds. Percent lifetime weight loss is 24 %. PHYSICAL EXAM: VITAL SIGNS: Height 5 foot 6 inches, weight 320 pounds. BMI 51.8 Vital Signs Temp 97.4 F L 05/18/21 12:56 Pulse 82 05/18/21 12:56 Resp 16 05/18/21 12:56 BP 126/83 05/18/21 12:56 Pulse Ox GENERAL: Well-developed in no acute distress. HEENT: No scleral icterus. Extraocular movements grossly intact. Hears conversational speech. No nasal drainage. NECK: Supple without lymphadenopathy. CHEST: Nonlabored respirations with equal bilateral excursions. CARDIOVASCULAR: Regular rate and regular rhythm. Distal 2+ pulses. ABDOMEN: Obese. No infection. MUSCULOSKELETAL: No clubbing, cyanosis. NEURO: No focal or lateralizing signs. Cranial nerves 2 through 12 grossly within normal limits. PSYCH: Appropriate affect. Alert and oriented to person, place and time. SKIN: Good skin turgor. Well perfused. ASSESSMENT: 1. Morbid obesity due to excess calories 2. Body mass index of 60.2, initial to 51.8 3. Osteoarthritis of the lower back 4. Postoperative nausea and vomiting 5. Pseudotumor cerebri 6. Leukocytosis 7. Vitamin D deficiency 8. Hiatal hernia 9. Status post sleeve gastrectomy PLAN: 1. Recommend follow-up 3 months postop. 2. Recommend bariatric labs. 3. May resume activities in 1 week. Objective - Vital Signs Vital signs: Vital Signs Temp 97.4 F L 05/18/21 12:56 Pulse 82 05/18/21 12:56 Resp 16 05/18/21 12:56 BP 126/83 05/18/21 12:56 Pulse Ox Intake & Output 05/17/21 05/18/21 05/18/21 18:59 06:59 18:59 Weight 145.603 kg Assessment/Plan Plan: Date: 05/18/21 Initial Weight: 161.479 kg Initial BMI: 57.4 Current Weight: 145.603 kg Current BMI: 51.7 Type of Surgery: Total Volume in Band: Previous Volume: Volume Removed: Volume Added: Band Size:
== END ==
LOC: BARWHC3 12:43
PROVIDERS: ATTEND Surgery Plastic and Reconstructive Surgery
DX: E66.01 Morbid (severe) obesity due to excess calories (principal); M47.816 Spondylosis without myelopathy or radiculopathy, lumbar region; K91.0 Vomiting following gastrointestinal surgery; G93.2 Benign intracranial hypertension; D72.829 Elevated white blood cell count, unspecified; E55.9 Vitamin D deficiency, unspecified; K44.9 Diaphragmatic hernia without obstruction or gangrene; Z98.84 Bariatric surgery status; Z68.43 Body mass index [BMI] 50.0-59.9, adult
CPT/HCPCS: 97803; 99211

== ENCOUNTER → 2021-05-21 | Outpatient (CLI) | payer BC ==
[2021-05-21 17:03] LABS: HCT 44.7 % (37.2-46.3); HGB 14.3 g/dL (12.0-15.0); MCH 28.3 pg (27.0-32.0); MCV 88.3 fL (80.0-97.0); Mean Platelet Volume 12.8 fL (9.5-12.2); NRBC Per 100 WBC 0 /100 WBCS (0.0-0.0); Platelet Count 222 X 10*3/uL (140-440); RBC 5.06 X 10*6/uL (4.10-5.20); RDW 14.6 % (11.5-14.5); WBC 8.15 X 10*3/uL (4.50-10.00)
[2021-05-21 17:39] LABS: % Iron Saturation 22.01 (12.00-45.00); Iron 61 ug/dL (50-170); Magnesium 2.2 mg/dL (1.5-2.4); Phosphorus 2.9 mg/dL (2.4-5.1); Total Iron Binding Capacity 277 ug/dL (228-460)
[2021-05-21 17:40] LABS: ALT 17 U/L (8-44); AST 19 U/L (13-35); African American GFR (CKD) 138.8 (60.0-200.0); Albumin 4.3 g/dL (3.8-4.9); Albumin/Globulin Ratio 1.52 (1.60-3.17); Alkaline Phosphatase 88 U/L (41-126); BUN/Creat Ratio 18.04 Ratio (12.00-20.00); Blood Urea Nitrogen 11.8 mg/dL (9.0-27.0); Calcium 9.6 mg/dL (8.7-10.3); Carbon Dioxide 19.1 mmol/L (20.0-27.5); Chloride 106 mmol/L (96-109); Globulin 2.8 g/dL (1.6-3.3); Glucose 100 mg/dL (70-110); Non-African American GFR(CKD) 119.7 (60.0-200.0); Potassium 3.7 mmol/L (3.5-5.5); Sodium 138 mmol/L (135-145); Total Protein 7.1 g/dL (6.2-8.2)
[2021-05-21 17:51] LABS: Chol/HDL Ratio 3.61 Ratio; LDL Cholesterol,Calculated 77.3 mg/dL (0.0-131.0); Prealbumin 14.3 mg/dL (18.0-42.0)
[2021-05-21 23:13] LABS: INR 1.05 (0.90-1.11); Partial Thromboplastin Time 33.9 sec (23.5-31.0); Prothrombin Time 11.8 sec (9.9-11.9)
[2021-05-24 07:50] LABS: Vit B1(Thiamine) 51 ug/L (38-122)
== END | disposition home or self-care (01) ==
LOC: LABWHC1 10:48
PROVIDERS: ATTEND Surgery Plastic and Reconstructive Surgery
DX: E66.01 Morbid (severe) obesity due to excess calories (principal); E89.1 Postprocedural hypoinsulinemia; D50.8 Other iron deficiency anemias; D50.9 Iron deficiency anemia, unspecified; K91.2 Postsurgical malabsorption, not elsewhere classified; E44.0 Moderate protein-calorie malnutrition; E45 Retarded development following protein-calorie malnutrition; E55.9 Vitamin D deficiency, unspecified; K74.1 Hepatic sclerosis; N19 Unspecified kidney failure; T56.894A Toxic effect of other metals, undetermined, initial encounter; E46 Unspecified protein-calorie malnutrition; K50.90 Crohn's disease, unspecified, without complications
CPT/HCPCS: 36415; 80053; 80061; 82306; 82525; 82607; 82728; 82746; 83036; 83540; 83550; 83735; 83970; 84100; 84134; 84255; 84425; 84443; 84590; 84630; 85027; 85610; 85730

== ENCOUNTER → 2021-11-25 | Outpatient (CLI) | payer BC ==
[2021-11-25 16:08] LABS: Partial Thromboplastin Time 25.9 sec (22.0-30.0); Prothrombin Time 11.1 sec (9.0-12.0)
[2021-11-25 22:58] LABS: HCT 41.4 % (37.2-46.3); HGB 13.9 g/dL (12.0-15.0); MCH 30.2 pg (27.0-32.0); MCHC 33.6 g/dL (32.0-37.0); Mean Platelet Volume 11.6 fL (9.5-12.2); NRBC Per 100 WBC 0 /100 WBCS (0.0-0.0); Platelet Count 240 X 10*3/uL (140-440); RDW 12.1 % (11.5-14.5); WBC 9.29 X 10*3/uL (4.50-10.00)
[2021-11-25 23:55] LABS: % Iron Saturation 15.79 (12.00-45.00); ALT 13 U/L (8-44); AST 14 U/L (13-35); African American GFR (CKD) 118.2 (60.0-200.0); Albumin 4.2 g/dL (3.8-4.9); Albumin/Globulin Ratio 1.67 (1.60-3.17); Alkaline Phosphatase 100 U/L (41-126); BUN/Creat Ratio 25.38 Ratio (12.00-20.00); Blood Urea Nitrogen 19.8 mg/dL (9.0-27.0); Calcium 9.5 mg/dL (8.7-10.3); Carbon Dioxide 24.1 mmol/L (20.0-27.5); Chloride 100 mmol/L (96-109); Globulin 2.5 g/dL (1.6-3.3); Glucose 95 mg/dL (70-110); Iron 49 ug/dL (50-170); Phosphorus 4.5 mg/dL (2.4-5.1); Sodium 138 mmol/L (135-145); Total Iron Binding Capacity 312 ug/dL (228-460); Total Protein 6.8 g/dL (6.2-8.2)
[2021-11-26 00:35] LABS: Chol/HDL Ratio 3.31 Ratio; LDL Cholesterol,Calculated 95.2 mg/dL (0.0-131.0); Prealbumin 18.3 mg/dL (18.0-42.0)
== END | disposition home or self-care (01) ==
LOC: LABWHC1 15:03
PROVIDERS: ATTEND Surgery Plastic and Reconstructive Surgery
DX: D50.8 Other iron deficiency anemias (principal); K91.2 Postsurgical malabsorption, not elsewhere classified; E44.0 Moderate protein-calorie malnutrition; E55.9 Vitamin D deficiency, unspecified; E66.01 Morbid (severe) obesity due to excess calories; K74.1 Hepatic sclerosis; N19 Unspecified kidney failure; T56.894A Toxic effect of other metals, undetermined, initial encounter
CPT/HCPCS: 36415; 80053; 80061; 82306; 82525; 82607; 82728; 82746; 83036; 83540; 83550; 83735; 83970; 84100; 84134; 84255; 84425; 84443; 84590; 84630; 85027; 85610; 85730

== ENCOUNTER → 2021-12-23 | Outpatient (CLI) | payer BC ==
--- NOTE | 2021-12-23 12:13 | MR ---
MRI CERVICAL SPINE: CLINICAL HISTORY: Intracranial hypertension. Headache with neck pain for 2 months. TECHNIQUE: Multiplanar, multisequence imaging of the cervical spine is performed without and with IV contrast, 12 cc of gadolinium was given intravenously. COMPARISON: None at this institution. FINDINGS: Sagittal images of the cervical spine show the craniocervical junction to appear within nor mal limits. The cervical and upper thoracic spinal cord is normal in caliber and signal. Loss of nor mal cervical curvature is present on sagittal images centered at C5-C6 level. The vertebral body and intravertebral disk heights are normal despite multilevel disc desiccation. The bone marrow signal intensity is within normal limits. No abnormal postcontrast enhancement is seen. Axial images show tiny right paracentral disc protrusion C5-C6 level minimally effacing the anterior thecal sac otherwise are within normal limits. Bilateral neural foramina patent at all cervical level s. IMPRESSION: Loss of normal cervical curvature with mild degenerative change C5-C6 level noted. If outside MRI becomes available for direct correlation an addendum may be issued.
== END | disposition home or self-care (01) ==
LOC: RADMRIMAIN 06:01
PROVIDERS: ATTEND Psychiatry & Neurology Sleep Medicine
DX: M47.812 Spondylosis without myelopathy or radiculopathy, cervical region (principal)
CPT/HCPCS: 72156; A9585

== ENCOUNTER 2022-03-25 15:03 | Emergency (ER) | payer BC ==
[2022-03-25 15:13] VITALS: RESP 18; TEMP 98.2
[2022-03-25] MEDS ORDERED: MAG HYDROX/AL HYDROX/SIMETH 30 ML, HYOSCYAMINE ELIXIR 10 ML, LIDOCAINE VISCOUS 2% 10 ML PO STA ×3 (15:20)
--- NOTE | 2022-03-25 15:25 | ED ---
General Adult HPI - General Chief complaint: Abdominal Pain Stated complaint: Dizziness,Abd pain Time Seen by Provider: 03/25/22 15:17 Source: patient Mode of arrival: wheelchair Limitations: no limitations - History of Present Illness Initial comments: Dictation was produced using [employer] dictation software. please excuse any grammatical, word or spelling errors. Chief Complaint: 31-year-old female presents to emergency department for abdominal pain History of Present Illness: 31-year-old female presents to the emergency department for abdominal pain. Patient has history of bariatric surgery done one year ago. Patient's been doing fine since his surgery. Her last couple days she's had significant epigastric burning immediately with oral intake. Does not seem to be any different with food or drink. Denies any fever. She does complain of nausea. No vomiting. The ROS documented in this emergency department record has been reviewed and confirmed by me. Those systems with pertinent positive or negative responses gill ve been documented in the HPI. All other systems are other negative and/or noncontributory. PHYSICAL EXAM: General Impression: Alert and oriented x3, not in acute distress HEENT: Normocephalic atraumatic, extra-ocular movements intact, pupils equal and reactive to light bilaterally, mucous membranes moist. Cardiovascular: Heart regular rate and rhythm Chest: Able to complete full sentences, no retractions, no tachypnea Abdomen: abdomen soft, mild palpatory epigastric tenderness, non-distended, no organomegaly Musculoskeletal: Pulses present and equal in all extremities, no peripheral edema Motor: no focal deficits noted Neurological: CN II-XII grossly intact, no focal motor or sensory deficits noted Skin: Intact with no visualized rashes Psych: Normal affect and mood ED course: 31-year-old female presents emergency department for abdominal pain. Concern for gastritis versus marginal ulcer versus peptic ulcer. vital signs upon arrival are within acceptable limits. Nursing notes and chart review was performed My EKG interpretation: Ventricular rate 61, sinus rhythm,. 152, QRS 87, QTC 398. No MA prolongation, no QTC prolongation, no ST or T-wave changes noted. Overall, this EKG is unremarkable Laboratory evaluation obtained. CBC, coag panel, bypass is unremarkable. Abdominal labs negative. Beta Quant is negative. Computed tomography scan of the abdomen and pelvis shows no acute processes. Patient reevaluated at bedside after having given GI cocktail states that her symptoms are significantly improved. Clinical presentation suspicious for gastritis versus peptic ulcer disease versus reflux versus multiple Gen. ulcer. Patient denies any black or bloody stools. He is discussed with Dr. Camara who is on-call for Dr. Mantilla states that patient should be given prescription for Protonix and follow up with the bariatric clinic on Sunday. Was pt. sent in by a medical professional or institution (, NELA, SUPPORT TEACHER, urgent care, hospital, or [facility]...) When possible be specific @ -No Did you speak to anyone other than the patient for history (EMS, parent, family, police, friend...)? What history was obtained from this source @ -No Did you review nursing and triage notes (agree or disagree)? Why? @ -I reviewed and agree with nursing and triage notes Were old charts reviewed (outside hosp., previous admission, EMS record, old EKG, old radiological studies, urgent care reports/EKG's, [facility] records)? Report findings @ -No old charts were reviewed Differential Diagnosis (chest pain, altered mental status, abdominal pain women, abdominal pain men, vaginal bleeding, weakness, fever, dyspnea, syncope, headache, dizziness, GI bleed, back pain, seizure, CVA, palpatations, mental health)? @ -not applicable EKG interpreted by me (3pts min.). @ -As above X-rays interpreted by me (1pt min.). @ -None done CT interpreted by me (1pt min.). @ -As above U/S interpreted by me (1pt. min.). @ -None done What testing was considered but not performed or refused? (CT, X-rays, U/S, labs)? Why? @ -None What meds were considered but not given or refused? Why? @ -None Did you discuss the management of the patient with other professionals (professionals i.e. , NELA, SUPPORT TEACHER, lab, RT, psych nurse, social media coordinator, manufacture specialist, teacher, community reinvestment act officer, casework specialist)? Give summary @ -See above Was smoking cessation discussed for >3mins.? @ -No Was critical care preformed (if so, how long)? @ -No Were there social determinants of health that impacted care today? How? (Homelessness, low income, unemployed, alcoholism, drug addiction, transportation, low edu. Level, literacy, decrease access to med. care, fdc, rehab)? @ -No Was there de-escalation of care discussed even if they declined (Discuss DNR or withdrawal of care, Hospice)? DNR status @ -No What co-morbidities impacted this encounter? (DM, HTN, Smoking, COPD, CAD, Cancer, CVA, ARF, Chemo, Hep., AIDS, mental health diagnosis, sleep apnea, morbid obesity)? @ -obesity Was patient admitted / discharged? Hospital course, mention meds given and route, prescriptions, significant lab abnormalities, going to OR and other pertinent info. @ -See above Undiagnosed new problem with uncertain prognosis? @ -No Drug Therapy requiring intensive monitoring for toxicity (Heparin, Nitro, Insulin, Cardizem)? @ -No Were any procedures done? @ -No Diagnosis/symptom? @ -Reflux versus gastritis versus peptic ulcer Acute, or Chronic, or Acute on Chronic? @ -Acute Uncomplicated (without systemic symptoms) or Complicated (systemic symptoms)? @ -Uncomplicated Side effects of treatment? @ -No Exacerbation, Progression, or Severe Exacerbation? @ -No Poses a threat to life or bodily function? How? (Chest pain, [place], [place], pneumonia, PE, COPD, DKA, ARF, appy, cholecystitis, CVA, Diverticulitis, Homicidal, Suicidal, threat to staff... and all critical care pts) @ -No - Related Data Home Medications Medication Instructions Recorded Confirmed acetaZOLAMIDE [Diamox] 250 mg PO QID 01/26/21 11/23/21 Previous Rx's Medication Instructions Recorded Omeprazole [PriLOSEC] 40 mg PO DAILY #30 cap 04/26/21 bisacodyL [Dulcolax] 5 mg PO DAILY PRN #10 tab 04/26/21 Nystatin 100,000 Unit/gm Powd 1 applic TOPICAL BID #60 gm 08/03/21 [Mycostatin Powder] Pantoprazole [Protonix] 40 mg PO DAILY 14 Days #14 tab 03/25/22 Allergies Allergy/AdvReac Type Severity Reaction Status Date / Time No Known Allergies Allergy Verified 03/25/22 15:13 Review of Systems ROS Statement: Those systems with pertinent positive or pertinent negative responses have been documented in the HPI. ROS Other: All systems not noted in ROS Statement are negative. Past Medical History Past Medical History: No Reported History Additional Past Medical History / Comment(s): intracranium hypertension. headaches History of Any Multi-Drug Resistant Organisms: None Reported Past Surgical History: Section, Tubal Ligation Additional Past Surgical History / Comment(s): csection X2. unsuccessful lumbar puncture on 01/27/21. Past Anesthesia/Blood Transfusion Reactions: Motion Sickness, Postoperative Nausea & Vomiting (PONV) Past Psychological History: Anxiety Smoking Status: Never smoker Past Alcohol Use History: None Reported Past Drug Use History: None Reported - Past Family History Father Family Medical History: No Reported History General Exam Limitations: no limitations Course Vital Signs 03/25/22 03/25/22 15:11 16:02 Temperature 98.2 F Pulse Rate 73 62 Respiratory 18 18 Rate Blood Pressure 98/53 128/89 O2 Sat by Pulse 100 98 Oximetry Medical Decision Making - Lab Data Result diagrams: 03/25/22 15:30 03/25/22 15:30 Lab Results 03/25/22 03/25/22 03/25/22 Range/Units 15:30 15:30 15:30 WBC 11.6 H (3.8-10.6) k/uL RBC 4.76 (3.80-5.40) m/uL Hgb 14.3 (11.4-16.0) gm/dL Hct 43.4 (34.0-46.0) % MCV 91.2 (80.0-100.0) fL MCH 30.0 (25.0-35.0) pg MCHC 33.0 (31.0-37.0) g/dL RDW 12.9 (11.5-15.5) % Plt Count 234 (150-450) k/uL MPV 8.7 Neutrophils % 59 % Lymphocytes % 35 % Monocytes % 3 % Eosinophils % 1 % Basophils % 0 % Neutrophils # 6.8 (1.3-7.7) k/uL Lymphocytes # 4.1 (1.0-4.8) k/uL Monocytes # 0.3 (0-1.0) k/uL Eosinophils # 0.2 (0-0.7) k/uL Basophils # 0.0 (0-0.2) k/uL PT 10.2 (9.0-12.0) sec INR 1.0 (<1.2) APTT 18.2 L (22.0-30.0) sec Sodium 138 (137-145) mmol/L Potassium 3.7 (3.5-5.1) mmol/L Chloride 102 (98-107) mmol/L Carbon Dioxide 29 (22-30) mmol/L Anion Gap 7 mmol/L BUN 21 H (7-17) mg/dL Creatinine 0.62 (0.52-1.04) mg/dL Est GFR (CKD-EPI)AfAm >90 (>60 ml/min/1.73 sqM) Est GFR (CKD-EPI)NonAf >90 (>60 ml/min/1.73 sqM) Glucose 122 H (74-99) mg/dL Plasma Lactic Acid Ramirez (0.7-2.0) mmol/L Calcium 9.1 (8.4-10.2) mg/dL Total Bilirubin 0.5 (0.2-1.3) mg/dL AST 90 H (14-36) U/L ALT 38 H (4-34) U/L Alkaline Phosphatase 123 (38-126) U/L Total Protein 7.9 (6.3-8.2) g/dL Albumin 4.5 (3.5-5.0) g/dL Lipase 130 (23-300) U/L HCG, Quant <2.4 mIU/mL 03/25/22 Range/Units 15:30 WBC (3.8-10.6) k/uL RBC (3.80-5.40) m/uL Hgb (11.4-16.0) gm/dL Hct (34.0-46.0) % MCV (80.0-100.0) fL MCH (25.0-35.0) pg MCHC (31.0-37.0) g/dL RDW (11.5-15.5) % Plt Count (150-450) k/uL MPV Neutrophils % % Lymphocytes % % Monocytes % % Eosinophils % % Basophils % % Neutrophils # (1.3-7.7) k/uL Lymphocytes # (1.0-4.8) k/uL Monocytes # (0-1.0) k/uL Eosinophils # (0-0.7) k/uL Basophils # (0-0.2) k/uL PT (9.0-12.0) sec INR (<1.2) APTT (22.0-30.0) sec Sodium (137-145) mmol/L Potassium (3.5-5.1) mmol/L Chloride (98-107) mmol/L Carbon Dioxide (22-30) mmol/L Anion Gap mmol/L BUN (7-17) mg/dL Creatinine (0.52-1.04) mg/dL Est GFR (CKD-EPI)AfAm (>60 ml/min/1.73 sqM) Est GFR (CKD-EPI)NonAf (>60 ml/min/1.73 sqM) Glucose (74-99) mg/dL Plasma Lactic Acid Ramirez 1.6 (0.7-2.0) mmol/L Calcium (8.4-10.2) mg/dL Total Bilirubin (0.2-1.3) mg/dL AST (14-36) U/L ALT (4-34) U/L Alkaline Phosphatase (38-126) U/L Total Protein (6.3-8.2) g/dL Albumin (3.5-5.0) g/dL Lipase (23-300) U/L HCG, Quant mIU/mL Disposition Clinical Impression: Reflux gastritis Disposition: HOME SELF-CARE Condition: Fair Instructions (If sedation given, give patient instructions): Gastritis (ED) Prescriptions: Pantoprazole [Protonix] 40 mg PO DAILY 14 Days #14 tab Is patient prescribed a controlled substance at d/c from ED?: No Referrals: Teresa Mantilla MD [STAFF PHYSICIAN] - 1-2 days Time of Disposition: 17:15
[2022-03-25 15:49] LABS: ALT 38 U/L (4-34); AST 90 U/L (14-36); African American GFR (CKD) >90 (>60 ml/min/1.73 sqM); Albumin 4.5 g/dL (3.5-5.0); Alkaline Phosphatase 123 U/L (38-126); Anion Gap 7 mmol/L; Blood Urea Nitrogen 21 mg/dL (7-17); Calcium 9.1 mg/dL (8.4-10.2); Carbon Dioxide 29 mmol/L (22-30); Chloride 102 mmol/L (98-107); Glucose 122 mg/dL (74-99); Lipase 130 U/L (23-300); Non-African American GFR(CKD) >90 (>60 ml/min/1.73 sqM); Potassium 3.7 mmol/L (3.5-5.1); Sodium 138 mmol/L (137-145); Total Bilirubin 0.5 mg/dL (0.2-1.3); Total Protein 7.9 g/dL (6.3-8.2)
[2022-03-25 16:06] LABS: HCG,Quantitative Serum <2.4 mIU/mL
[2022-03-25 16:09] LABS: Prothrombin Time 10.2 sec (9.0-12.0)
[2022-03-25 16:25] LABS: Partial Thromboplastin Time 18.2 sec (22.0-30.0)
[2022-03-25 16:28] LABS: Basophils % (A) 0 %; Eosinophils # (A) 0.2 k/uL (0-0.7); Eosinophils % (A) 1 %; HCT 43.4 % (34.0-46.0); HGB 14.3 gm/dL (11.4-16.0); Lymphocytes # (A) 4.1 k/uL (1.0-4.8); Lymphocytes % (A) 35 %; MCV 91.2 fL (80.0-100.0); Mean Platelet Volume 8.7; Monocytes # (A) 0.3 k/uL (0-1.0); Monocytes % (A) 3 %; Neutrophils # (A) 6.8 k/uL (1.3-7.7); Neutrophils % (A) 59 %; Platelet Count 234 k/uL (150-450); RBC 4.76 m/uL (3.80-5.40); RDW 12.9 % (11.5-15.5); WBC 11.6 k/uL (3.8-10.6)
--- NOTE | 2022-03-25 16:47 | CT ---
EXAMINATION TYPE: CT abdomen pelvis w con DATE OF EXAM: 03/25/2022 COMPARISON: None HISTORY: abd pain, n/v, fatigue CT DLP: 1886.5 mGycm Automated exposure control for dose reduction was used. CONTRAST: Performed with IV Contrast, patient injected with 100ml mL of Isovue 300. Images obtained from the diaphragm to the floor the pelvis with the IV contrast. The lung bases are clear of consolidation. There is mild subsegmental atelectasis at the right community health agent ior lung base. No pleural effusion. Heart size is normal. Liver spleen appear intact. There are clips from apparent gastric bariatric surgery. No pancreatic ma ss. The bile duct are not dilated. Gallbladder appears normal. There is no adrenal mass. Kidneys show satisfactory contrast opacification. No hydronephrosis. Ureter s are not dilated. No retroperitoneal adenopathy. The bladder distends smoothly. No inguinal hernia. No free fluid in the pelvis. No pelvic mass. The uterus is retroverted. Appendix appears normal. The lumbar vertebrae have normal alignment. Posterior elements are intact. No compression fracture. F acet joints are intact. Bony pelvis is intact. Sacroiliac joints are intact. The hip joints are intac t. IMPRESSION: Negative CT scan abdomen and pelvis.
[2022-03-25] MEDS ORDERED: PANTOPRAZOLE 40 MG/10 ML VIAL IVP STA (17:06)
[2022-03-25 17:24] LABS: Appearance,Urine Cloudy (Clear); Bilirubin,Urine Negative (Negative); Blood,Urine Negative (Negative); Color,Urine Yellow; Glucose,Urine (UA) Negative (Negative); Ketones,Urine Negative (Negative); Leukocyte Esterase,Urine Large (Negative); Mucus,Urine Rare /hpf; Nitrite,Urine Negative (Negative); Protein,Urine Trace (Negative); RBC,Urine 3 /hpf (0-5); Specific Gravity,Urine 1.031 (1.001-1.035); Squamous Epithelial Cell,Urine 5 /hpf (0-4); WBC,Urine 9 /hpf (0-5)
[2022-03-25 17:27] VITALS: BP 132/81; PULSE 68
== END 2022-03-25 17:27 | disposition home or self-care (01) ==
LOC: EC 15:03
DX: K29.60 Other gastritis without bleeding (principal); I10 Essential (primary) hypertension; F41.9 Anxiety disorder, unspecified; Z79.899 Other long term (current) drug therapy
CPT/HCPCS: 36415; 93005; 80053; 83605; 83690; 85025; 85610; 85730; 81001; 84702; 74177; 99284; 96374; C9113; Q9967

== ENCOUNTER → 2022-03-27 | Outpatient (CLI) | payer BC ==
--- NOTE | 2022-03-27 11:19 | US ---
EXAMINATION TYPE: US gallbladder DATE OF EXAM: 03/27/2022 COMPARISON: CT 03/25/2022 CLINICAL HISTORY: R10.13 EPIGASTRIC PAIN. Post-prandial pain TECHNIQUE: Multiple sonographic images of the right upper quadrant are obtained. FINDINGS: EXAM MEASUREMENTS: Liver Length: 18.8 cm Gallbladder Wall: 0.20 cm CBD: 0.25 cm Right Kidney: 11.9 x 5.5 x 5.0 cm Pancreas: Tail obscured by overlying bowel gas Liver: Increased attenuation, increased size Gallbladder: mobile multiple tiny stones visualized. Evidence for sonographic Sanchez's sign: No CBD: wnl Right Kidney: wnl The visualized portion of the pancreas is unremarkable. The tail is obscured by overlying bowel gas. The liver is enlarged with increased attenuation consistent with steatosis. No focal lesion. Cholelit hiasis without evidence of wall thickening, pericholecystic fluid or positive sonographic Sanchez's si gn. The common bile duct is within normal limits. Right kidney is unremarkable without evidence for h ydronephrosis, shadowing calculi, or solid contour deforming mass. IMPRESSION: 1. Cholelithiasis without evidence for acute cholecystitis. 2. Mild hepatomegaly with hepatic steatosis.
== END | disposition home or self-care (01) ==
LOC: RADUSWWP 10:49
PROVIDERS: ATTEND Surgery
DX: K80.20 Calculus of gallbladder without cholecystitis without obstruction (principal); K76.0 Fatty (change of) liver, not elsewhere classified; R16.0 Hepatomegaly, not elsewhere classified
CPT/HCPCS: 76705

== ENCOUNTER 2022-03-28 15:09 | Day surgery (SDC) | payer BC ==
[2022-03-28] MEDS ORDERED: LACTATED RINGERS 1,000 ML IV ONE ×3 (15:40→18:42)
[2022-03-28] MEDS ORDERED: ONDANSETRON 4 MG/2 ML VIAL ONE (16:03)
[2022-03-28] MEDS ORDERED: MIDAZOLAM 2 MG/2 ML VIAL IV ONE (16:08)
[2022-03-28] MEDS ORDERED: ONDANSETRON 4 MG/2 ML VIAL IVP ONE (16:09)
[2022-03-28] MEDS ORDERED: DEXAMETHASONE SOD PHOSPHATE 4 MG/ML 1 ML VIAL IV ONE (16:09)
[2022-03-28] MEDS ORDERED: SCOPOLAMINE 1 MG/72 HR PATCH TRANSDERM ONE (16:10)
[2022-03-28] MEDS ORDERED: HEPARIN SODIUM,PORCINE/PF 5,000 UNIT/0.5 ML SYRINGE SQ ONE (17:28)
[2022-03-28] MEDS ORDERED: NEOSTIGMINE 1 MG/ML 10 ML VIAL ONE (17:49)
[2022-03-28] MEDS ORDERED: PROPOFOL 10 MG/ML 20 ML VIAL IV ONE (17:49)
[2022-03-28] MEDS ORDERED: fentaNYL (PF) 50 MCG/ML 2 ML AMP ONE (17:49)
[2022-03-28] MEDS ORDERED: KETOROLAC 15 MG/ML 1 ML VIAL ONE (17:49)
[2022-03-28] MEDS ORDERED: HYDROmorphone (PF) 1 MG/ML ONE (17:49)
[2022-03-28] MEDS ORDERED: MIDAZOLAM 2 MG/2 ML VIAL ONE (17:49)
[2022-03-28] MEDS ORDERED: GLYCOPYRROLATE 0.2 MG/ML 2 ML VIAL ONE (17:49)
[2022-03-28] MEDS ORDERED: LIDOCAINE 4% LTA KIT (4 ML) TOPICAL ONE (17:49)
[2022-03-28] MEDS ORDERED: ROCURONIUM 10 MG/ML (5 ML VIAL) IV ONE (17:49)
[2022-03-28] MEDS ORDERED: SUCCINYLCHOLINE CHLORIDE 200 MG/10 ML VIAL IV ONE (17:49)
[2022-03-28] MEDS ORDERED: LIDOCAINE 2% INJ 20 MG/ML (2 ML VIAL) ONE (17:49)
--- NOTE | 2022-03-28 17:55 | P.GSHP ---
History of Present Illness H&P Date: 03/28/22 Chief Complaint: Right upper quadrant pain This is a 31-year-old female who's had complaints of right quadrant pain. Patient was seen in emergency. Patient was discharged home from the emergency room and then had more complaints of pain. Ultrasound of the abdomen was orde red. Patient is evidence of cholelithiasis. Past Medical History Past Medical History: No Reported History Additional Past Medical History / Comment(s): intracranium hypertension. headaches History of Any Multi-Drug Resistant Organisms: None Reported Past Surgical History: Section, Tubal Ligation Additional Past Surgical History / Comment(s): csection X2. unsuccessful lumbar puncture on 01/27/21. Past Anesthesia/Blood Transfusion Reactions: Motion Sickness, Postoperative Nausea & Vomiting (PONV) Past Psychological History: Anxiety Smoking Status: Never smoker Past Alcohol Use History: None Reported Past Drug Use History: None Reported - Past Family History Father Family Medical History: No Reported History Medications and Allergies Home Medications Medication Instructions Recorded Confirmed Type Acetaminophen Tab [Tylenol] 650 mg PO Q6H #30 tab 03/28/22 Rx Docusate [Colace] 100 mg PO BID #20 capsule 03/28/22 Rx Ibuprofen [Motrin] 600 mg PO Q6HR PRN #40 tab 03/28/22 Rx Multivitamin [Multivitamins Adult 1 each PO DAILY 03/28/22 03/28/22 History Gummies] oxyCODONE HCL [OxyIR] 5 mg PO Q6H PRN 3 Days #10 tab 03/28/22 Rx Allergies Allergy/AdvReac Type Severity Reaction Status Date / Time sweet potato Allergy Rash/Hives Verified 03/28/22 15:53 Surgical - Exam Vital Signs Temp Pulse BP Pulse Ox 97.6 F 84 150/73 99 03/28/22 15:40 03/28/22 15:40 03/28/22 15:40 03/28/22 15:40 - General well developed, well nourished, no distress - Eyes PERRL - ENT normal pinna - Neck no masses - Respiratory normal expansion - Cardiovascular Rhythm: regular - Abdomen Mild right upper quadrant tenderness Abdomen: soft Assessment and Plan Assessment: Cholelithiasis. Upper quadrant pain We'll perform laparoscopic cholecystectomy
[2022-03-28] MEDS ORDERED: SODIUM CHLORIDE 0.9% 50 ML with ceFAZolin 2,000 MG IV ONE ×2 (17:58)
[2022-03-28] MEDS ORDERED: BUPIVACAIN-EPI 0.25%-1:200,000 30 ML VIAL SQ ONE (18:05)
--- NOTE | 2022-03-28 18:41 | P.OP ---
Date of Procedure: 03/28/22 Preoperative Diagnosis: Cholecystitis Cholelithiasis Postoperative Diagnosis: Cholecystitis Cholelithiasis Procedure(s) Performed: Laparoscopic cholecystectomy Anesthesia: MISSY Surgeon: Edenilson Camara Estimated Blood Loss (ml): 5 Pathology: other (Gallbladder) Condition: stable Disposition: PACU Description of Procedure: The patient was placed on the operating table. The patient received a general endotracheal tube anesthesia. The patients abdomen was prepped and draped in the usual sterile fashion. Through an infraumbilical stab incision, the fascia of the anterior abdominal wall was grasped with a pair of Kochers and then the Veress needle was placed in the peritoneal cavity. Position of the Veress needle was confirmed with positive drop test. The abdomen was then insufflated. After adequate insufflation, the 10 mm trocar was placed in the peritoneal cavity. Following this the laparoscope was placed in the peritoneal cavity. The patient was placed in the head-up, right side up position and then a 5 mm trocar was placed in the right lateral and right subcostal position under direct visualization. A 8 mm trocar was placed in the epigastric position. The gallbladder was grasped in the fundus and infundibulum. Traction on the gallbladder was placed in the lateral and the cephalad positions. The triangle of Calot was visualized.. The cystic duct was bluntly dissected until the union of the cystic duct and common bile duct wa s seen. A critical view of safety was achieved. The cystic duct was then divided and sealed with the Harmonic scissors. A PDS Endoloop was then placed throughout the cystic duct stump. The cystic artery divided and sealed with the Harmonic scissors. The gallbladder was then removed from the liver bed using Harmonic scissors. The gallbladder was then extracted through the epigastric port site. Operative field was checked for any bleeding spots and Harmonic scissors was used to coagulate the liver bed. The abdomen was irrigated. The trocars were removed. The skin was closed using interrupted 3-0 Vicryl suture. Dermabond dressing were applied. The patient tolerated the procedure well.
[2022-03-28] MEDS ORDERED: ONDANSETRON 4 MG/2 ML VIAL IVP PRN (18:42)
[2022-03-28] MEDS ORDERED: HYDROmorphone 1 MG/ML 1 ML SYRINGE IVP PRN (18:42)
[2022-03-28] MEDS ORDERED: HYDROmorphone 0.5 MG/0.5 ML SYRINGE IVP PRN (18:42)
[2022-03-28] MEDS ORDERED: NALOXONE 0.4 MG/ML 1 ML VIAL IV PRN (18:42)
[2022-03-28] MEDS ORDERED: HYDROcodone/APAP 5-325MG 1 EACH TAB PO PRN (18:42)
[2022-03-28] MEDS ORDERED: ACETAMINOPHEN TAB 325 MG TAB PO PRN (18:42)
[2022-03-28] MEDS ORDERED: HYDROmorphone 0.5 MG/0.5 ML SYRINGE IVP ONE ×2 (18:49→19:10)
[2022-03-28] MEDS ORDERED: METOCLOPRAMIDE 5 MG/ML 2 ML VIAL IVP ONE (19:48)
[2022-03-28] MEDS: KETOROLAC 15 MG/ML 1 ML VIAL IVP SCH (23:45)
[2022-03-29] MEDS: HYDROcodone/APAP 5-325MG 1 EACH TAB PO PRN ×2 (01:53→08:07)
[2022-03-29] MEDS: KETOROLAC 15 MG/ML 1 ML VIAL IVP SCH (05:56)
[2022-03-29 08:35] VITALS: BP 153/82; PULSE 62; RESP 18; TEMP 98.2
[2022-03-29] MEDS ORDERED: ENOXAPARIN 40 MG/0.4 ML SYRINGE SQ SCH (09:00)
== END 2022-03-29 08:33 | disposition home or self-care (01) ==
LOC: OR 15:09 → 4SSUR 18:46 → OR 03-29 08:33
PROVIDERS: ATTEND Surgery
DX: K80.10 Calculus of gallbladder with chronic cholecystitis without obstruction (principal); I10 Essential (primary) hypertension; F41.9 Anxiety disorder, unspecified; Z98.890 Other specified postprocedural states; Z79.1 Long term (current) use of non-steroidal anti-inflammatories (NSAID); Z79.899 Other long term (current) drug therapy
CPT/HCPCS: 81025; 47562; J2250; J0330; J1100; J2710; J2765; J2405; J0690; J3010; J1170 ×2; J1885 ×2; J2704; J1790; J1644; J2001; 88304

== ENCOUNTER → 2023-06-28 | Outpatient (CLI) | payer BC ==
--- NOTE | 2023-06-29 18:41 | MR ---
EXAMINATION TYPE: MR brain wo con DATE OF EXAM: 06/28/2023 3:15 PM CLINICAL INDICATION:Female, 32 years old with history of G93.2, G43.709; PHH, Headaches, memory loss, confusion, hx ICH. COMPARISON: None. TECHNIQUE: Multi planar, multi sequence imaging was performed through the brain including: T1, T2, In version recovery, Diffusion weighted imaging, and gradient echo imaging. No gadolinium was given. FINDINGS: The camp-white junctions, ventricular system, basal cisterns appear unremarkable. Midline structures show no abnormality. Diffusion-weighted imaging shows no evidence of restricted diffusion. The suscep tibility weighted images do not reveal any evidence for micro-hemorrhage. The bone marrow signal is within normal limits. Paranasal sinuses and mastoid air cells: No significant paranasal sinus disease. Visualized orbits: Orbital contents are intact. IMPRESSION: 1. No evidence of intracranial mass or acute/subacute infarct.
== END | disposition home or self-care (01) ==
LOC: RADMRIMAIN 14:25
PROVIDERS: ATTEND Psychiatry & Neurology Sleep Medicine
DX: G43.709 Chronic migraine without aura, not intractable, without status migrainosus (principal); G93.2 Benign intracranial hypertension; R14.0 Abdominal distension (gaseous)
CPT/HCPCS: 70551

== ENCOUNTER 2024-01-22 13:27 | Emergency (ER) | payer BC ==
[2024-01-22 13:39] VITALS: PULSE 91
--- NOTE | 2024-01-22 14:26 | ED ---
Abdominal Pain HPI - General Chief Complaint: Abdominal Pain Stated Complaint: Abd pain Time Seen by Provider: 01/22/24 14:25 Source: patient, RN notes reviewed Mode of arrival: ambulatory Limitations: no limitations - History of Present Illness Initial Comments: 33-year-old female presenting to the ER with chief complaint of abdominal pain x 3 days. Describes a constant pain in the right lower quadrant that has been worsening in severity. Pain radiates to back. Admits associated loose stool. Patient reports she was sent by her PCP to rule out appendicitis and kidney stones. Denies fever, chills, urinary symptoms, nausea, vomiting. Abdominal surgical history includes cholecystectomy. - Related Data Home Medications Medication Instructions Recorded Confirmed Biotin(Unknown Dose) 1 tab PO DAILY 01/22/24 01/22/24 Multivitamins, Thera [Multivitamin 1 tab PO DAILY 01/22/24 01/22/24 (formulary)] Selenium(Unknown Dose) 1 tab PO DAILY 01/22/24 01/22/24 Allergies Allergy/AdvReac Type Severity Reaction Status Date / Time sweet potato Allergy Rash/Hives Verified 01/22/24 17:14 Review of Systems ROS Statement: Those systems with pertinent positive or pertinent negative responses have been documented in the HPI. ROS Other: All systems not noted in ROS Statement are negative. Past Medical History Past Medical History: No Reported History Additional Past Medical History / Comment(s): intracranium hypertension. headaches History of Any Multi-Drug Resistant Organisms: None Reported Past Surgical History: Bariatric Surgery, Section, Cholecystectomy, Tubal Ligation Additional Past Surgical History / Comment(s): csection X2. unsuccessful lumbar puncture on 01/27/21. cholecystectomy mar 2022 Past Anesthesia/Blood Transfusion Reactions: Motion Sickness, Postoperative Nausea & Vomiting (PONV) Past Psychological History: Anxiety Smoking Status: Never smoker Past Alcohol Use History: None Reported Past Drug Use History: None Reported - Past Family History Father Family Medical History: No Reported History General Exam - General Exam Comments Initial Comments: Visual Physical Exam Vital signs reviewed General: Well-appearing, nontoxic, no acute distress. Head: Normocephalic, atraumatic Eyes: PERRLA, EOMI ENT: Airway patent Chest: Nonlabored breathing Skin: No visual rash, normal skin tone Neuro: Alert and oriented 3 Musculoskeletal: No gross abnormalities Limitations: no limitations General appearance: alert, in no apparent distress Head exam: Present: atraumatic, normocephalic, normal inspection Eye exam: Present: normal appearance, PERRL, EOMI. Absent: scleral icterus, co njunctival injection, periorbital swelling ENT exam: Present: normal exam, mucous membranes moist Respiratory exam: Present: normal lung sounds bilaterally. Absent: respiratory distress, wheezes, rales, rhonchi, stridor Cardiovascular Exam: Present: regular rate, normal rhythm, normal heart sounds. Absent: systolic murmur, diastolic murmur, rubs, gallop, clicks GI/Abdominal exam: Present: soft, normal bowel sounds. Absent: distended, tenderness, guarding, rebound, rigid Back exam: Present: normal inspection. Absent: CVA tenderness (R), CVA tenderness (L) Neurological exam: Present: alert, oriented X3 Psychiatric exam: Present: normal affect, normal mood Skin exam: Present: warm, dry, intact, normal color. Absent: rash Course Vital Signs 01/22/24 01/22/24 13:36 18:48 Temperature 98.1 F 97.7 F Pulse Rate 91 91 Respiratory 20 16 Rate Blood Pressure 153/99 113/89 O2 Sat by Pulse 98 98 Oximetry Medical Decision Making - Medical Decision Making I completed the quick note portion of this chart signed Joan Ortega PA-C Was pt. sent in by a medical professional or institution (NELA Welsh, PROGRAM REVIEW DIRECTOR, urgent care, hospital, or care home...) When possible be specific @ -Sent by PCP to rule out appendicitis and kidney stones Did you speak to anyone other than the patient for history (EMS, parent, family, police, friend...)? What history was obtained from this source @ -No Did you review nursing and triage notes (agree or disagree)? Why? @ -I reviewed and agree with nursing and triage notes Were old charts reviewed (outside hosp., previous admission, EMS record, old EKG, old radiological studies, urgent care reports/EKG's, care home records)? Report findings @ -No old charts were reviewed Differential Diagnosis (chest pain, altered mental status, abdominal pain women, abdominal pain men, vaginal bleeding, weakness, fever, dyspnea, syncope, headache, dizziness, GI bleed, back pain, seizure, CVA, palpatations, mental health, musculoskeletal)? @ -Differential Abdominal Pain Women: Appendicitis, Cholecystitis, diverticulosis, ischemic bowel, pancreatitis, hepatitis, UTI, gastroenteritis, AAA, incarcerated hernia, bowel obstruction, constipation, inflammatory bowel, hepatitis, peptic ulcer disease, splenic infarction, perforated viscus, vulvitis, ovarian torsion, PID, kidney stone, placenta abruption, this is not meant to be an all-inclusive list EKG interpreted by me (3pts min.). @ -None X-rays interpreted by me (1pt min.). @ -None done CT interpreted by me (1pt min.). @ -CT abdomen pelvis reveals abnormal massive thickening of fundal portion of endometrium versus less likely near large hypodense mass of fibroid U/S interpreted by me (1pt. min.). @ -Pelvic ultrasound reveals large suspected fibroid uterus with possible submucosal fibroid, multiple peripheral follicles right ovary, appropriate arterial and venous waveforms are ovaries What testing was considered but not performed or refused? (CT, X-rays, U/S, labs)? Why? @ -None What meds were considered but not given or refused? Why? @ -None Did you discuss the management of the patient with other professionals (professionals i.e. , PA, PROGRAM REVIEW DIRECTOR, lab, RT, psych nurse, social services assistant, collar baster, teacher, immigration officer, egg caser)? Give summary @ -No Was smoking cessation discussed for >3mins.? @ -No Was critical care preformed (if so, how long)? @ -No Were there social determinants of health that impacted care today? How? (Homelessness, low income, unemployed, alcoholism, drug addiction, transportation, low edu. Level, literacy, decrease access to med. care, [facility], rehab)? @ -No Was there de-escalation of care discussed even if they declined (Discuss DNR or withdrawal of care, Hospice)? DNR status @ -No What co-morbidities impacted this encounter? (DM, HTN, Smoking, COPD, CAD, Cancer, CVA, ARF, Chemo, Hep., AIDS, mental health diagnosis, sleep apnea, morbid obesity)? @ -None Was patient admitted / discharged? Hospital course, mention meds given and route, prescriptions, significant lab abnormalities, going to OR and other pertinent info. @ -Discharge. This is a 33-year-old female presenting with right lower quadrant abdominal pain x 3 days. Vital signs within acceptable limits. Abdomen is soft and nontender. Patient is provided with Toradol and IV fluids. Lab work including CBC, CMP, lactic acid, lipase remarkable for white blood cell count 10.9, hemoglobin 8.5. Urinalysis reveals large amount of red blood cells, 11 white blood cells, 7 squamous cells, likely contaminated sample and patient is recently coming off of menstrual cycle. CT abdomen pelvis reveals abnormal massive thickening of fundal portion of endometrium. Pelvic ultrasound obtained which reveals a large suspected fibroid uterus with possible submucosal fibroid, multiple peripheral follicles in right ovary, appropriate arterial and venous waveforms to ovaries. Results discussed with patient. Upon reevaluation, patient reports significant symptom improvement after Toradol. Discussed diagnosis of uterine fibroids as well as supportive care. Advise close follow- up with gynecology. Patient is agreeable to plan. Case was discussed with my ED attending Dr. Marley. Patient discharged in stable condition. Undiagnosed new problem with uncertain prognosis? @ -No Drug Therapy requiring intensive monitoring for toxicity (Heparin, Nitro, Insulin, Cardizem)? @ -No Were any procedures done? @ -No Diagnosis/symptom? @ -Uterine fibroid Acute, or Chronic, or Acute on Chronic? @ -Acute Uncomplicated (without systemic symptoms) or Complicated (systemic symptoms)? @ -Uncomplicated Side effects of treatment? @ -No Exacerbation, Progression, or Severe Exacerbation? @ -No Poses a threat to life or bodily function? How? (Chest pain, [place], [place], pneumonia, PE, COPD, DKA, ARF, appy, cholecystitis, CVA, Diverticulitis, Homicidal, Suicidal, threat to staff... and all critical care pts) @ -No - Lab Data Result diagrams: 01/22/24 15:06 01/22/24 15:06 Lab Results 01/22/24 01/22/24 01/22/24 Range/Units 15:06 15:06 15:06 WBC 10.9 H (3.8-10.6) k/uL RBC 3.73 L (3.80-5.40) m/uL Hgb 8.5 L (11.4-16.0) gm/dL Hct 27.4 L (34.0-46.0) % MCV 73.5 L (80.0-100.0) fL MCH 22.9 L (25.0-35.0) pg MCHC 31.2 (31.0-37.0) g/dL RDW 14.9 (11.5-15.5) % Plt Count 319 (150-450) k/uL MPV 7.4 Neutrophils % 75 % Lymphocytes % 19 % Monocytes % 4 % Eosinophils % 2 % Basophils % 0 % Neutrophils # 8.2 H (1.3-7.7) k/uL Lymphocytes # 2.1 (1.0-4.8) k/uL Monocytes # 0.4 (0-1.0) k/uL Eosinophils # 0.2 (0-0.7) k/uL Basophils # 0.0 (0-0.2) k/uL Hypochromasia Marked Microcytosis Slight Sodium 137 (137-145) mmol/L Potassium 4.4 (3.5-5.1) mmol/L Chloride 106 (98-107) mmol/L Carbon Dioxide 27 (22-30) mmol/L Anion Gap 4 mmol/L BUN 13 (7-17) mg/dL Creatinine 0.58 (0.52-1.04) mg/dL Est GFR (CKD-EPI)AfAm >90 (>60 ml/min/1.73 sqM) Est GFR (CKD-EPI)NonAf >90 (>60 ml/min/1.73 sqM) Glucose 107 H (74-99) mg/dL Plasma Lactic Acid Ramirez 1.4 (0.7-2.0) mmol/L Calcium 9.0 (8.4-10.2) mg/dL Total Bilirubin 0.3 (0.2-1.3) mg/dL AST 26 (14-36) U/L ALT 12 (4-34) U/L Alkaline Phosphatase 75 (38-126) U/L Total Protein 7.0 (6.3-8.2) g/dL Albumin 4.1 (3.5-5.0) g/dL Lipase 129 (23-300) U/L Urine Color Urine Appearance (Clear) Urine pH (5.0-8.0) Ur Specific [place] (1.001-1.035) Urine Protein (Negative) Urine Glucose (UA) (Negative) Urine Ketones (Negative) Urine Blood (Negative) Urine Nitrite (Negative) Urine Bilirubin (Negative) Urine Urobilinogen (<2.0) mg/dL Ur Leukocyte Esterase (Negative) Urine RBC (0-5) /hpf Urine WBC (0-5) /hpf Ur Squamous Epith Cells (0-4) /hpf Urine Mucus (None) /hpf Urine HCG, Qual (Not Detectd) 01/22/24 01/22/24 Range/Units 15:09 15:09 WBC (3.8-10.6) k/uL RBC (3.80-5.40) m/uL Hgb (11.4-16.0) gm/dL Hct (34.0-46.0) % MCV (80.0-100.0) fL MCH (25.0-35.0) pg MCHC (31.0-37.0) g/dL RDW (11.5-15.5) % Plt Count (150-450) k/uL MPV Neutrophils % % Lymphocytes % % Monocytes % % Eosinophils % % Basophils % % Neutrophils # (1.3-7.7) k/uL Lymphocytes # (1.0-4.8) k/uL Monocytes # (0-1.0) k/uL Eosinophils # (0-0.7) k/uL Basophils # (0-0.2) k/uL Hypochromasia Microcytosis Sodium (137-145) mmol/L Potassium (3.5-5.1) mmol/L Chloride (98-107) mmol/L Carbon Dioxide (22-30) mmol/L Anion Gap mmol/L BUN (7-17) mg/dL Creatinine (0.52-1.04) mg/dL Est GFR (CKD-EPI)AfAm (>60 ml/min/1.73 sqM) Est GFR (CKD-EPI)NonAf (>60 ml/min/1.73 sqM) Glucose (74-99) mg/dL Plasma Lactic Acid Ramirez (0.7-2.0) mmol/L Calcium (8.4-10.2) mg/dL Total Bilirubin (0.2-1.3) mg/dL AST (14-36) U/L ALT (4-34) U/L Alkaline Phosphatase (38-126) U/L Total Protein (6.3-8.2) g/dL Albumin (3.5-5.0) g/dL Lipase (23-300) U/L Urine Color Light Yellow Urine Appearance Cloudy H (Clear) Urine pH 6.5 (5.0-8.0) Ur Specific [place] 1.020 (1.001-1.035) Urine Protein Trace H (Negative) Urine Glucose (UA) Negative (Negative) Urine Ketones Negative (Negative) Urine Blood Large H (Negative) Urine Nitrite Negative (Negative) Urine Bilirubin Negative (Negative) Urine Urobilinogen <2.0 (<2.0) mg/dL Ur Leukocyte Esterase Small H (Negative) Urine RBC 70 H (0-5) /hpf Urine WBC 11 H (0-5) /hpf Ur Squamous Epith Cells 7 H (0-4) /hpf Urine Mucus Few H (None) /hpf Urine HCG, Qual Not Detected (Not Detectd) Disposition Clinical Impression: Uterine fibroid Disposition: HOME SELF-CARE Condition: Stable Additional Instructions: Follow-up with gynecology as discussed. Please return to the Emergency Department if symptoms worsen or any other concerns. Is patient prescribed a controlled substance at d/c from ED?: No Referrals: Adrien Judge MD [Primary Care Provider] - 1-2 days [facility] [employer] ATTEND[facility] [Provider Group] - 1-2 days Time of Disposition: 18:40
[2024-01-22 15:15] LABS: Basophils % (A) 0 %; Eosinophils # (A) 0.2 k/uL (0-0.7); Eosinophils % (A) 2 %; HCT 27.4 % (34.0-46.0); HGB 8.5 gm/dL (11.4-16.0); Hypochromasia Marked; Lymphocytes # (A) 2.1 k/uL (1.0-4.8); Lymphocytes % (A) 19 %; MCH 22.9 pg (25.0-35.0); MCHC 31.2 g/dL (31.0-37.0); MCV 73.5 fL (80.0-100.0); Mean Platelet Volume 7.4; Microcytosis Slight; Monocytes # (A) 0.4 k/uL (0-1.0); Monocytes % (A) 4 %; Neutrophils # (A) 8.2 k/uL (1.3-7.7); Neutrophils % (A) 75 %; Platelet Count 319 k/uL (150-450); RBC 3.73 m/uL (3.80-5.40); RDW 14.9 % (11.5-15.5); WBC 10.9 k/uL (3.8-10.6)
[2024-01-22 15:23] LABS: Appearance,Urine Cloudy (Clear); Bilirubin,Urine Negative (Negative); Blood,Urine Large (Negative); Color,Urine Light Yellow; Glucose,Urine (UA) Negative (Negative); Ketones,Urine Negative (Negative); Leukocyte Esterase,Urine Small (Negative); Mucus,Urine Few /hpf; Nitrite,Urine Negative (Negative); PH, Urine 6.5 (5.0-8.0); Protein,Urine Trace (Negative); RBC,Urine 70 /hpf (0-5); Squamous Epithelial Cell,Urine 7 /hpf (0-4); Urobilinogen,Urine <2.0 mg/dL (<2.0); WBC,Urine 11 /hpf (0-5)
[2024-01-22 15:36] LABS: ALT 12 U/L (4-34); AST 26 U/L (14-36); African American GFR (CKD) >90 (>60 ml/min/1.73 sqM); Albumin 4.1 g/dL (3.5-5.0); Alkaline Phosphatase 75 U/L (38-126); Anion Gap 4 mmol/L; Blood Urea Nitrogen 13 mg/dL (7-17); Carbon Dioxide 27 mmol/L (22-30); Chloride 106 mmol/L (98-107); Glucose 107 mg/dL (74-99); Lipase 129 U/L (23-300); Non-African American GFR(CKD) >90 (>60 ml/min/1.73 sqM); Potassium 4.4 mmol/L (3.5-5.1); Sodium 137 mmol/L (137-145); Total Bilirubin 0.3 mg/dL (0.2-1.3)
[2024-01-22] MEDS: KETOROLAC 15 MG/ML 1 ML VIAL IVP STA (15:38)
[2024-01-22] MEDS: SODIUM CHLORIDE 0.9% 1,000 ML IV STA (15:39)
--- NOTE | 2024-01-22 16:19 | CT ---
EXAMINATION TYPE: CT abdomen pelvis w con DATE OF EXAM: 01/22/2024 4:08 PM COMPARISON: Previous CT abdomen/pelvis 03/25/2022. CLINICAL INDICATION: Female, 33 years old with history of RLQ abd pain; RLQ pain, back pain, vomiting TECHNIQUE: Axial CT abdomen pelvis w con;Sagittal and coronal reformats were created on a separate w orkstation. Contrast used:100 mL of Isovue 300 with IV Contrast, (none if empty) Oral contrast used: without Oral Contrast (none if empty) CT DLP: 1223.6 mGycm, Automated exposure control for dose reduction was used. FINDINGS: LOWER CHEST: Unremarkable ABDOMEN Liver unremarkable. Portal vein not well evaluated but appear grossly patent. Gallbladder surgically absent. Spleen normal in size and morphology. No suspicious adrenal gland nodule. Pancreas unremarkab le. No abnormal biliary duct dilatation. Kidneys enhance symmetrically bilaterally. No hydronephrosis of either ureter. No suspicious enhancin g renal mass. Abdominal aorta without aneurysmal dilatation. Splenic artery and SMA appear grossly patent. Imaging through the gastric intestinal tract demonstrates moderate diffuse colonic stool burden. Post surgical changes of previously gastrectomy noted. No small bowel obstruction. Appendix normal. No evidence of free air/pneumoperitoneum. Small volume nonspecific free fluid in the pelvis. Abnormal appearance of the uterine fundus. Either marked enlargement of the endometrium versus new hypodense mass, not present on prior study 03/25/2022. No acute osseous abnormality. Urinary bladder unremarkabl e. IMPRESSION: Abnormal masslike thickening of the fundal portion of the endometrium versus less likely new large hy podense mass/fibroid. Findings were not present on prior CT study dated 03/25/2022 and are incompletel y evaluated on this CT study. Further evaluation with dedicated pelvic ultrasound is recommended. [facility], Workstation: [email or web address], 01/22/2024 4:17 PM
--- NOTE | 2024-01-22 18:26 | US ---
EXAMINATION TYPE: US pelvis complete transvag DATE OF EXAM: 01/22/2024 COMPARISON: CT 01/22/24 CLINICAL INDICATION: Female, 33 years old with history of RLQ abd pain; Patient states RLQ pain since start of period on 01/15/24. Hx 2 c sect TECHNIQUE: Transvaginal (TV) and Transabdominal (TA) . Transabdominal grayscale sonographic images of the pelvis were acquired. Transvaginal sonographic im ages were medically necessary to better assess the following anatomy: Ovaries Doppler imaging: Color Doppler Images were obtained. Spectral doppler images were obtained. FINDINGS: Date of LMP: 01/15/24 EXAM MEASUREMENTS: Uterus: 13.2 x 8.3 x 9.1 cm Endometrial Stripe: 6.9cm Right Ovary: 4.3 x 2.0 x 3.5 cm Left Ovary: 3.6 x 2.4 x 2.7 cm unable to evaluate uterus or rt ovary transvaginally due to large uterus. Uterus and rt ovary evalu ated transabdominally 1. Uterus: Anteverted Enlarged 2. Endometrium: Thickened and heterogeneous measuring 6.9 x 6.4 x 6.8cm 3. Right Ovary: Multiple follicles seen, largest measuring 2.0 x 1.2 x 1.9cm 4. Left Ovary: Follicular changes seen Spectral, color and waveform doppler imaging shows good arterial and venous flow within the ovaries ; there is no evidence for ovarian torsion. 5. Bilateral Adnexa: Free fluid seen bilaterally 6. Posterior cul-de-sac: Free fluid seen IMPRESSION: 1. Large suspected fibroid uterus with possible submucosal fibroid. 2. Multiple peripheral follicles of the right ovary.. 3. Appropriate arterial and venous spectral waveforms of the ovaries. [facility], , 01/22/2024 6:24 PM
[2024-01-22 18:50] VITALS: BP 113/89; RESP 16; TEMP 97.7
== END 2024-01-22 18:50 | disposition home or self-care (01) ==
LOC: EC 13:27
DX: D25.9 Leiomyoma of uterus, unspecified (principal); Z91.018 Allergy to other foods
CPT/HCPCS: 36415; 80053; 83605; 83690; 85025; 81001; 81025; 87086; 93975; 76856; 76830; 74177; 99284; 96374; 96361 ×3; J1885; Q9967

== ENCOUNTER 2024-01-26 10:19 | Emergency (ER) | payer BC ==
[2024-01-26 10:31] VITALS: RESP 18; TEMP 98.2
[2024-01-26] MEDS: ONDANSETRON 4 MG/2 ML VIAL IVP STA (10:53)
[2024-01-26] MEDS: KETOROLAC 15 MG/ML 1 ML VIAL IVP STA (10:53)
[2024-01-26] MEDS: SODIUM CHLORIDE 0.9% 1,000 ML IV STA (10:53)
[2024-01-26] MEDS: DIPHENOX-ATROP 2.5-0.025 MG 1 EACH TAB PO STA (10:53)
--- NOTE | 2024-01-26 11:00 | ED ---
Abdominal Pain HPI - General Chief Complaint: Abdominal Pain Stated Complaint: lower back pain/vaginal bleeding Time Seen by Provider: 01/26/24 10:34 Source: patient, RN notes reviewed Mode of arrival: ambulatory Limitations: no limitations - History of Present Illness Initial Comments: This is a 33-year-old female who presents to the emergency department for abdominal pain. States that it started about a week ago. She was evaluated here for this 4 days ago and diagnosed with uterine fibroids. She contacted [facility] for a follow-up appointment but is unable to get in until 02/18. States that since discharge she continues to have severe pain in both the lower abdomen and lower back as well as diarrhea and nausea. Also reports a decreased appetite and vaginal bleeding. She is taking Tylenol without any relief in symptoms. MD Complaint: abdominal pain - Related Data Home Medications Medication Instructions Recorded Confirmed Biotin(Unknown Dose) 1 tab PO DAILY 01/22/24 01/22/24 Multivitamins, Thera [Multivitamin 1 tab PO DAILY 01/22/24 01/22/24 (formulary)] Selenium(Unknown Dose) 1 tab PO DAILY 01/22/24 01/22/24 Previous Rx's Medication Instructions Recorded HYDROcodone/APAP 5-325MG [[place] 1 tab PO Q6HR PRN 3 Days #12 tab 01/26/24 5-325] Ketorolac [Toradol] 10 mg PO Q6HR PRN #15 tab 01/26/24 Ondansetron Odt [Zofran Odt] 4 mg PO Q8HR PRN #15 tab 01/26/24 Allergies Allergy/AdvReac Type Severity Reaction Status Date / Time sweet potato Allergy Rash/Hives Verified 01/22/24 17:14 Review of Systems ROS Statement: Those systems with pertinent positive or pertinent negative responses have been documented in the HPI. ROS Other: All systems not noted in ROS Statement are negative. Past Medical History Past Medical History: No Reported History Additional Past Medical History / Comment(s): intracranium hypertension. headaches History of Any Multi-Drug Resistant Organisms: None Reported Past Surgical History: Bariatric Surgery, Section, Cholecystectomy, Tubal Ligation Additional Past Surgical History / Comment(s): csection X2. unsuccessful lumbar puncture on 01/27/21. cholecystectomy mar 2022 Past Anesthesia/Blood Transfusion Reactions: Motion Sickness, Postoperative Nausea & Vomiting (PONV) Past Psychological History: Anxiety Smoking Status: Never smoker Past Alcohol Use History: None Reported Past Drug Use History: None Reported - Past Family History Father Family Medical History: No Reported History General Exam Limitations: no limitations General appearance: alert, in no apparent distress Head exam: Present: atraumatic, normocephalic, normal inspection Respiratory exam: Present: normal lung sounds bilaterally. Absent: respiratory distress, wheezes, rales, rhonchi, stridor Cardiovascular Exam: Present: regular rate, normal rhythm, normal heart sounds. Absent: systolic murmur, diastolic murmur, rubs, gallop, clicks GI/Abdominal exam: Present: soft, tenderness (Lower abdomen), normal bowel sounds. Absent: distended, guarding, rebound, rigid Neurological exam: Present: alert, oriented X3, CN II-XII intact Psychiatric exam: Present: normal affect, normal mood Skin exam: Present: warm, dry, intact, normal color. Absent: rash Course Vital Signs 01/26/24 01/26/24 10:28 12:58 Temperature 98.2 F Pulse Rate 88 65 Respiratory 18 18 Rate Blood Pressure 135/82 110/71 O2 Sat by Pulse 100 100 Oximetry Medical Decision Making - Medical Decision Making This is a 33 year old female who presents to the emergency department for abdominal pain. Was pt. sent in by a medical professional or institution? @ -No Did you speak to anyone other than the patient for history? @ -No Did you review nursing and triage notes? @ -Yes, and I agree, it is accurate with regards to the patient's symptoms. Were old charts reviewed? @ -CT scan of the abdomen and pelvis from 01/22/2024 demonstrating abnormal masslike thickening of the fundal portion of the endometrium versus new large hypodense mass/fibroid. Pelvic ultrasound from 02/01/2024 demonstrates a large suspected fibroid uterus with possible submucosal fibroid as well as multiple peripheral follicles of the right ovary. Differential Diagnosis? @ -Differential Abdominal Pain Women: Appendicitis, Cholecystitis, diverticulosis, ischemic bowel, pancreatitis, hepatitis, UTI, gastroenteritis, AAA, incarcerated hernia, bowel obstruction, constipation, inflammatory bowel, hepatitis, peptic ulcer disease, splenic infarction, perforated viscus, vulvitis, ovarian torsion, PID, kidney stone, placenta abruption, this is not meant to be an all-inclusive list EKG interpreted by me (3pts min.)? @ -Not obtained X-rays interpreted by me (1pt min.)? @ -Not obtained CT interpreted by me (1pt min.)? @ -Not obtained U/S interpreted by me (1pt. min.)? @ -Not obtained What testing was considered but not performed? (CT, X-rays, U/S, labs)? Why? @ -None What meds were considered but not given? Why? @ -None Did you discuss the management of the patient with other professionals? @ -No Did you reconcile home meds? @ -No Was smoking cessation discussed for >3mins.? @ -No Was critical care preformed (if so, how long)? @ -No Were there social determinants of health that impacted care today? How? (Homelessness, low income, unemployed, alcoholism, drug addiction, transportation, low edu. Level, literacy, decrease access to med. care, custodial, rehab)? @ -No Was there de-escalation of care discussed even if they declined? (Discuss DNR or withdrawal of care, Hospice)? @ -No What co-morbidities impacted this encounter? (DM, HTN, Smoking, COPD, CAD, Cancer, CVA, Hep., AIDS, mental health diagnosis, sleep apnea, morbid obesity)? @ -Uterine fibroids Was patient admitted / discharged? @ -Discharged. Lab work demonstrates a decreased hemoglobin that is stable when compared to prior. Lab work otherwise unremarkable. Urinalysis contains blood, the patient does have active vaginal bleeding related to the fibroids. CT scan of the abdomen and pelvis from 01/22/2024 reviewed demonstrating masslike thickening of the endometrium versus new hypodense mass/fibroid. Pelvic ultrasound then obtained demonstrating a large fibroid uterus. I rediscussed these findings with the patient and how they can contribute to her symptoms. Advised she contact [facility] to see if she can be placed on a cancellation list, which might get her in sooner. She can also reach out to other offices to see if anyone else has a sooner appointment. Toradol and Zofran prescribed for symptomatic management. Advised heating pads and continuing with Tylenol as well. Patient discharged home in stable condition. Case discussed with ED attending Dr. Holm. Return precautions reviewed in depth, the patient is instructed to return to the emergency department with any new, worsening, or concerning symptoms. Patient verbalized understanding. Undiagnosed new problem with uncertain prognosis? @ -None Drug Therapy requiring intensive monitoring for toxicity (Heparin, Nitro, Insulin, Cardizem)? @ -None Were any procedures done? @ -None Diagnosis/symptom? @ -Uterine fibroids Acute, or Chronic, or Acute on Chronic? @ -Acute Uncomplicated (without systemic symptoms) or Complicated (systemic symptoms)? @ -Uncomplicated Side effects of treatment? @ -None Exacerbation, Progression, or Severe Exacerbation] @ -Not applicable Poses a threat to life or bodily function? @ -The pain is limiting her ability to function. - Lab Data Result diagrams: 01/26/24 11:00 01/26/24 11:00 Lab Results 01/26/24 01/26/24 01/26/24 Range/Units 11:00 11:00 11:00 WBC 7.2 (3.8-10.6) k/uL RBC 3.80 (3.80-5.40) m/uL Hgb 8.6 L (11.4-16.0) gm/dL Hct 27.8 L (34.0-46.0) % MCV 73.1 L (80.0-100.0) fL MCH 22.8 L (25.0-35.0) pg MCHC 31.1 (31.0-37.0) g/dL RDW 14.8 (11.5-15.5) % Plt Count 383 (150-450) k/uL MPV 7.0 Neutrophils % 70 % Lymphocytes % 22 % Monocytes % 5 % Eosinophils % 2 % Basophils % 0 % Neutrophils # 5.1 (1.3-7.7) k/uL Lymphocytes # 1.6 (1.0-4.8) k/uL Monocytes # 0.3 (0-1.0) k/uL Eosinophils # 0.1 (0-0.7) k/uL Basophils # 0.0 (0-0.2) k/uL Hypochromasia Marked Microcytosis Slight Sodium (137-145) mmol/L Potassium (3.5-5.1) mmol/L Chloride (98-107) mmol/L Carbon Dioxide (22-30) mmol/L Anion Gap mmol/L BUN (7-17) mg/dL Creatinine (0.52-1.04) mg/dL Est GFR (CKD-EPI)AfAm (>60 ml/min/1.73 sqM) Est GFR (CKD-EPI)NonAf (>60 ml/min/1.73 sqM) Glucose (74-99) mg/dL Plasma Lactic Acid Ramirez (0.7-2.0) mmol/L Calcium (8.4-10.2) mg/dL Total Bilirubin (0.2-1.3) mg/dL AST (14-36) U/L ALT (4-34) U/L Alkaline Phosphatase (38-126) U/L Total Protein (6.3-8.2) g/dL Albumin (3.5-5.0) g/dL Urine Color Yellow Urine Appearance Clear (Clear) Urine pH 6.5 (5.0-8.0) Ur Specific [place] 1.027 (1.001-1.035) Urine Protein Trace H (Negative) Urine Glucose (UA) Negative (Negative) Urine Ketones Negative (Negative) Urine Blood Moderate H (Negative) Urine Nitrite Negative (Negative) Urine Bilirubin Negative (Negative) Urine Urobilinogen <2.0 (<2.0) mg/dL Ur Leukocyte Esterase Negative (Negative) Urine RBC 181 H (0-5) /hpf Urine WBC 3 (0-5) /hpf Ur Squamous Epith Cells 5 H (0-4) /hpf Urine Mucus Many H (None) /hpf Urine HCG, Qual Not Detected (Not Detectd) 01/26/24 01/26/24 Range/Units 11:00 11:00 WBC (3.8-10.6) k/uL RBC (3.80-5.40) m/uL Hgb (11.4-16.0) gm/dL Hct (34.0-46.0) % MCV (80.0-100.0) fL MCH (25.0-35.0) pg MCHC (31.0-37.0) g/dL RDW (11.5-15.5) % Plt Count (150-450) k/uL MPV Neutrophils % % Lymphocytes % % Monocytes % % Eosinophils % % Basophils % % Neutrophils # (1.3-7.7) k/uL Lymphocytes # (1.0-4.8) k/uL Monocytes # (0-1.0) k/uL Eosinophils # (0-0.7) k/uL Basophils # (0-0.2) k/uL Hypochromasia Microcytosis Sodium 136 L (137-145) mmol/L Potassium 4.0 (3.5-5.1) mmol/L Chloride 105 (98-107) mmol/L Carbon Dioxide 27 (22-30) mmol/L Anion Gap 4 mmol/L BUN 11 (7-17) mg/dL Creatinine 0.58 (0.52-1.04) mg/dL Est GFR (CKD-EPI)AfAm >90 (>60 ml/min/1.73 sqM) Est GFR (CKD-EPI)NonAf >90 (>60 ml/min/1.73 sqM) Glucose 91 (74-99) mg/dL Plasma Lactic Acid Ramirze 1.1 (0.7-2.0) mmol/L Calcium 9.1 (8.4-10.2) mg/dL Total Bilirubin 0.4 (0.2-1.3) mg/dL AST 22 (14-36) U/L ALT 12 (4-34) U/L Alkaline Phosphatase 72 (38-126) U/L Total Protein 7.0 (6.3-8.2) g/dL Albumin 4.0 (3.5-5.0) g/dL Urine Color Urine Appearance (Clear) Urine pH (5.0-8.0) Ur Specific [place] (1.001-1.035) Urine Protein (Negative) Urine Glucose (UA) (Negative) Urine Ketones (Negative) Urine Blood (Negative) Urine Nitrite (Negative) Urine Bilirubin (Negative) Urine Urobilinogen (<2.0) mg/dL Ur Leukocyte Esterase (Negative) Urine RBC (0-5) /hpf Urine WBC (0-5) /hpf Ur Squamous Epith Cells (0-4) /hpf Urine Mucus (None) /hpf Urine HCG, Qual (Not Detectd) Disposition Clinical Impression: Fibroid uterus Disposition: HOME SELF-CARE Additional Instructions: Return to the emergency department with any new, worsening, or concerning symptoms. Take the Toradol with Tylenol as needed for pain relief. If you choose to take the Toradol, do not take any other anti-inflammatories such as ibuprofen, take one or the other. Take the [place] sparingly when your pain is the most severe. Take the Zofran up to every 8 hours as needed for nausea and vomiting. You can take [id number] Imodium as needed for diarrhea. See if the [facility] office can place you on a cancellation list to get in sooner. You can also look into other offices in the area to see if anyone else has sooner openings. Prescriptions: HYDROcodone/APAP 5-325MG [[place] 5-325] 1 tab PO Q6HR PRN 3 Days #12 tab PRN Reason: Pain Ketorolac [Toradol] 10 mg PO Q6HR PRN #15 tab PRN Reason: Pain Ondansetron Odt [Zofran Odt] 4 mg PO Q8HR PRN #15 tab PRN Reason: Nausea And Vomiting Is patient prescribed a controlled substance at d/c from ED?: Yes When asked, does pt state using other controlled substances?: No If prescribed controlled substance>3 days was MAPS reviewed?: Prescribed <3 Days Referrals: Adrien Judge MD [Primary Care Provider] - 1-2 days Time of Disposition: 12:39
[2024-01-26] MEDS: MORPHINE SULFATE 2 MG/ML SYRINGE IVP STA (11:05)
[2024-01-26 11:11] LABS: Basophils % (A) 0 %; Eosinophils # (A) 0.1 k/uL (0-0.7); Eosinophils % (A) 2 %; HCT 27.8 % (34.0-46.0); HGB 8.6 gm/dL (11.4-16.0); Hypochromasia Marked; Lymphocytes # (A) 1.6 k/uL (1.0-4.8); Lymphocytes % (A) 22 %; MCH 22.8 pg (25.0-35.0); MCHC 31.1 g/dL (31.0-37.0); MCV 73.1 fL (80.0-100.0); Microcytosis Slight; Monocytes # (A) 0.3 k/uL (0-1.0); Monocytes % (A) 5 %; Neutrophils # (A) 5.1 k/uL (1.3-7.7); Neutrophils % (A) 70 %; Platelet Count 383 k/uL (150-450); RDW 14.8 % (11.5-15.5); WBC 7.2 k/uL (3.8-10.6)
[2024-01-26 11:22] LABS: ALT 12 U/L (4-34); AST 22 U/L (14-36); African American GFR (CKD) >90 (>60 ml/min/1.73 sqM); Alkaline Phosphatase 72 U/L (38-126); Anion Gap 4 mmol/L; Blood Urea Nitrogen 11 mg/dL (7-17); Calcium 9.1 mg/dL (8.4-10.2); Carbon Dioxide 27 mmol/L (22-30); Chloride 105 mmol/L (98-107); Glucose 91 mg/dL (74-99); Non-African American GFR(CKD) >90 (>60 ml/min/1.73 sqM); Sodium 136 mmol/L (137-145); Total Bilirubin 0.4 mg/dL (0.2-1.3)
[2024-01-26 11:42] LABS: Appearance,Urine Clear (Clear); Bilirubin,Urine Negative (Negative); Blood,Urine Moderate (Negative); Color,Urine Yellow; Glucose,Urine (UA) Negative (Negative); Ketones,Urine Negative (Negative); Leukocyte Esterase,Urine Negative (Negative); Mucus,Urine Many /hpf; Nitrite,Urine Negative (Negative); PH, Urine 6.5 (5.0-8.0); Protein,Urine Trace (Negative); RBC,Urine 181 /hpf (0-5); Specific Gravity,Urine 1.027 (1.001-1.035); Squamous Epithelial Cell,Urine 5 /hpf (0-4); Urobilinogen,Urine <2.0 mg/dL (<2.0); WBC,Urine 3 /hpf (0-5)
[2024-01-26 13:00] VITALS: BP 110/71; PULSE 65
== END 2024-01-26 13:00 | disposition home or self-care (01) ==
LOC: EC 10:19
DX: D25.9 Leiomyoma of uterus, unspecified (principal); Z91.018 Allergy to other foods
CPT/HCPCS: 36415; 80053; 83605; 85025; 81001; 81025; 99284; 96374; 96375 ×2; 96361 ×2; J2405; J2270; J1885

== ENCOUNTER → 2024-02-12 | Outpatient (CLI) | payer BC ==
[2024-02-12 14:56] LABS: HGB 8.4 g/dL (12.0-15.0); MCH 21.2 pg (27.0-32.0); Mean Platelet Volume 10.1 FL (9.5-12.2); NRBC Per 100 WBC 0 X 10*3/uL (0.00-0.01); Platelet Count 513 X 10*3/uL (140-440); RBC 3.97 X 10*6/uL (4.10-5.20); RDW 15.5 % (11.5-14.5); WBC 7.92 X 10*3/uL (4.50-10.00)
[2024-02-12 15:34] LABS: Basophils # (A) 0.03 X 10*3/uL (0.00-0.10); Basophils % (A) 0.4 %; Eosinophils # (A) 0.16 X 10*3/uL (0.04-0.35); Lymphocytes # (A) 2.05 X 10*3/uL (0.90-5.00); Lymphocytes % (A) 25.9 %; Microcytosis (M) 2+; Monocytes # (A) 0.35 X 10*3/uL (0.20-1.00); Monocytes % (A) 4.4 %; Neutrophils % (A) 66.9 %
== END | disposition home or self-care (01) ==
LOC: LABPAT 11:08
PROVIDERS: ATTEND Obstetrics & Gynecology
DX: Z01.812 Encounter for preprocedural laboratory examination (principal)
CPT/HCPCS: 85025

== ENCOUNTER 2024-02-18 10:33 | Day surgery (SDC) | payer BC ==
[~2024-02-18 10:33] MED LIST changes: +HYDROmorphone 0.5 MG/0.5 ML SYRINGE IVP PRN; +Pre Op ABX Message 1 EACH MISC MISCELLANE ONE; -SODIUM CHLORIDE 0.9% 1,000 ML IV NR; -SODIUM CHLORIDE 0.9% 2,000 ML IV NR; -SODIUM CHLORIDE 0.9% 500 ML 500 ML in EMPTY BAG 1 BAG IV PRN
[2024-02-18] MEDS: IV FLUID CONTINUATION 1,000 ML IV ONE (11:13)
[2024-02-18] MEDS: LACTATED RINGERS 1,000 ML IV SCH (11:16)
[2024-02-18] MEDS: DEXAMETHASONE SOD PHOSPHATE 4 MG/ML 1 ML VIAL IV ONE (11:16)
[2024-02-18] MEDS: ONDANSETRON 4 MG/2 ML VIAL IVP ONE (11:16)
[2024-02-18] MEDS: MIDAZOLAM 2 MG/2 ML VIAL IV ONE (11:17)
[2024-02-18] MEDS: SORBITOL 3% IRRIG 3,000 ML BAG IRRIGATION ONE ×2 (11:46→12:14)
[2024-02-18] MEDS ORDERED: PROPOFOL 10 MG/ML 20 ML VIAL IV ONE (11:55)
[2024-02-18] MEDS ORDERED: LIDOCAINE 1% INJ 10MG/ML (20 ML MDV) ONE (11:55)
[2024-02-18] MEDS ORDERED: fentaNYL (PF) 50 MCG/ML 2 ML AMP ONE (11:55)
[2024-02-18] MEDS ORDERED: MIDAZOLAM 2 MG/2 ML VIAL ONE (11:55)
[2024-02-18 12:35] VITALS: TEMP 97.3
[2024-02-18] MEDS ORDERED: ONDANSETRON 4 MG/2 ML VIAL IVP PRN (12:48)
[2024-02-18] MEDS ORDERED: METOCLOPRAMIDE 5 MG/ML 2 ML VIAL IVP PRN (12:48)
[2024-02-18] MEDS ORDERED: diphenhydrAMINE 25 MG CAP PO PRN (12:48)
[2024-02-18] MEDS ORDERED: diphenhydrAMINE 50 MG/ML 1 ML VIAL IVP PRN (12:48)
[2024-02-18] MEDS ORDERED: SIMETHICONE 80 MG CHEWABLE PO PRN (12:48)
[2024-02-18] MEDS ORDERED: ACETAMINOPHEN TAB 325 MG TAB PO PRN (12:48)
--- NOTE | 2024-02-18 12:56 | P.OP ---
Date of Procedure: 02/18/24 Preoperative Diagnosis: #1. Menometrorrhagia #2. Fibroid uterus #3. Thickened endometrium Postoperative Diagnosis: Same Procedure(s) Performed: #1. Excision of prolapsing uterine mass #2. Diagnostic hysteroscopy #3. Endometrial curettage Anesthesia: other (General By LMA) Surgeon: Reymundo Cox Estimated Blood Loss (ml): 5 IV fluids (ml): 200 Urine output (ml): 30 Pathology: other (Prolapsing mass and endometrial curettings) Condition: stable Disposition: PACU Operative Findings: Preoperative pelvic examination demonstrated a roughly 7 to 8-week slightly anteverted uterus with a likely large fundal fibroid filling it. After placement of a weighted speculum, it was a very clear mass protruding through the cervix which was grasped with a ring forceps but had a thick base and could not be removed by twisting it. It was removed sharply with the Witt scissors. The uterus sounded to approximately 9 to 10 cm. A small amount of tissue was removed with sharp curettage onto a Telfa in the vagina and the typical gritty texture was encountered throughout. The best approach for hysterectomy in this case will be a da Kailee approach given the patient's physical findings. Description of Procedure: Patient was prepped and draped in usual fashion after general anesthesia was administered by the anesthesiologist. The bladder was drained of approximately 30 mL of clear jaren urine. A weighted speculum was placed and there was noted to be a mass within the cervix which was already dilated. It was grasped with a ring forceps and brought into the vagina. Attempts to twist it off failed as the base was fairly thick, approximately 1 cm across. It was brought as far into the vagina and out of the cervix as possible and a Witt scissor was utilized to cut it at its highest point in the cervix. The diagnostic hysteroscope was then placed into the vagina and the cavity distended with sorbitol. The findings were not clear as there was a fair amount of shaggy tissue still present likely from the base of the mass that had been removed. The tubal ostia were not identified. The scope was replaced with a sharp curette which was utilized to thoroughly and circumferentially performed curettage of the endometrial cavity onto a Telfa placed in the vagina with a small to medium amount of tissue returned. The typical gritty texture was encountered throughout. There was minimal ongoing bleeding. The patient is a poor candidate for vaginal hysterectomy should it become necessary. All instrumentation was removed and there was no ongoing bleeding from either the tenaculum site or the cervix. Estimated blood loss for the case was 5 mL or less. There were no complications. The patient tolerated the procedure well and proceeded to the recovery room in stable condition.
[2024-02-18] MEDS ORDERED: LACTATED RINGERS 1,000 ML IV SCH (13:00)
[2024-02-18 13:43] VITALS: BP 103/66; PULSE 69; RESP 18
== END 2024-02-18 14:07 | disposition home or self-care (01) ==
LOC: OR 10:33
PROVIDERS: ATTEND Obstetrics & Gynecology
DX: D25.1 Intramural leiomyoma of uterus (principal); D64.9 Anemia, unspecified; F41.9 Anxiety disorder, unspecified; Z88.6 Allergy status to analgesic agent; Z79.899 Other long term (current) drug therapy
CPT/HCPCS: 81025; 88305; 58558; J2250; J1100; J2405; J2003; J3010; J2704

== ENCOUNTER → 2024-03-31 | Outpatient (CLI) | payer BC ==
[2024-03-31 15:02] LABS: Basophils # (A) 0.03 X 10*3/uL (0.00-0.10); Basophils % (A) 0.5 %; Eosinophils # (A) 0.15 X 10*3/uL (0.04-0.35); Eosinophils % (A) 2.7 %; HCT 32.9 % (37.2-46.3); HGB 9.2 g/dL (12.0-15.0); Lymphocytes # (A) 2.27 X 10*3/uL (0.90-5.00); Lymphocytes % (A) 40.7 %; MCH 20.9 pg (27.0-32.0); MCV 74.6 FL (80.0-97.0); Mean Platelet Volume 10.5 FL (9.5-12.2); Monocytes # (A) 0.39 X 10*3/uL (0.20-1.00); NRBC Per 100 WBC 0 X 10*3/uL (0.00-0.01); Neutrophils # (A) 2.72 X 10*3/uL (1.80-7.70); Neutrophils % (A) 48.7 %; Platelet Count 357 X 10*3/uL (140-440); RBC 4.41 X 10*6/uL (4.10-5.20); RDW 21.4 % (11.5-14.5); WBC 5.58 X 10*3/uL (4.50-10.00)
[2024-03-31 15:03] LABS: Blood Urea Nitrogen 15.5 mg/dL (9.0-27.0); Carbon Dioxide 23.9 mmol/L (21.6-31.8); Chloride 104 mmol/L (96-109); Glucose 79 mg/dL (70-110); Potassium 4.5 mmol/L (3.5-5.5); Sodium 137 mmol/L (135-145)
== END | disposition home or self-care (01) ==
LOC: LABWHC1 12:09
PROVIDERS: ATTEND Obstetrics & Gynecology
DX: Z01.812 Encounter for preprocedural laboratory examination (principal); N93.8 Other specified abnormal uterine and vaginal bleeding; D64.9 Anemia, unspecified; D25.9 Leiomyoma of uterus, unspecified
CPT/HCPCS: 36415; 80051; 82565; 82947; 84520; 85025; 86850; 86900; 86901; 87086

== ENCOUNTER 2024-04-03 05:44 | Day surgery (SDC) | payer BC ==
[2024-04-01 13:24] VITALS: BMI 34.8
--- NOTE | 2024-04-02 23:17 | HP ---
HISTORY AND PHYSICAL The patient is a 33-year-old 2, para 2-0-0-2 who was recently seen in the office with a complaint of long-standing heavy and irregular bleeding and was found to have a fibroid uterus with an extremely thickened endometrium. She was taken to the operating room where she underwent hysteroscopy with D and C and was found with a prolapsing mass, which was ultimately found pathologically to be a necrosing/degenerating submucous fibroid. Following the procedure, she has continued to have daily bleeding, though it is not heavy since the procedure. She carries a history of 2 previous sections and does have an otherwise enlarged fibroid uterus and has requested definitive therapy. Given her history of sections and the size of the uterus, da Kailee approach is indicated. PAST MEDICAL HISTORY: Significant for some issues with mood disorder and otherwise menstrual problems as noted in History of Present Illness, as well as pelvic pain. PAST SURGICAL HISTORY: Significant for the procedure as mentioned in History of Present Illness, hysteroscopy with D and C, and excision of prolapsing mass. She additionally has undergone bariatric surgery in the past as well as section on 2 occasions and cholecystectomy. There have been no anesthetic concerns. OBSTETRICAL HISTORY: 2, para 2-0-0-2 with 2 term sections without complications. Method of contraception has been tubal ligation. GYNECOLOGIC HISTORY: Unremarkable except as noted in History of Present Illness. There is no history of any infections to include STDs. FAMILY HISTORY: Noncontributory. 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 She is a nonsmoker and denies any other social concerns. CURRENT MEDICATIONS: Have included only Provera 10 mg to control bleeding. ALLERGIES: No known drug allergies. REVIEW OF SYSTEMS: Confined to History of Present Illness. PHYSICAL EXAMINATION: VITAL SIGNS: Stable. The patient is afebrile. GENERAL: This is a well-developed, well-nourished white female in no acute distress. HEART: Has a regular rhythm and rate without murmur. LUNGS: Clear to auscultation bilaterally in all marquez. ABDOMEN: Nondistended, has normoactive bowel sounds, soft, nontender, without any palpable masses, hepatosplenomegaly, or hernias. EXTREMITIES: Without any cyanosis, clubbing, or edema and are nontender to palpation bilaterally. PELVIC: Demonstrates normal external genitalia and BUS with normal vaginal mucosa and cervix. There is no cervical motion tenderness. Uterus is 6-8 weeks in size, mid plane, mobile, nontender, and with a probable fundal fibroid of some size. The adnexa are normal and nontender without mass bilaterally. ASSESSMENT AND PLAN: 1. Dysfunctional uterine bleeding. 2. Fibroid uterus. 3. Anemia. The patient has been instructed to take iron sulfate leading up to the procedure in advance of surgery. She is scheduled for da Kailee robotically assisted laparoscopic hysterectomy with bilateral salpingectomy and diagnostic cystoscopy. The risks and complications of the procedure have been thoroughly discussed including the risks for bleeding, bleeding requiring transfusion, infection, and injury to local structures to include the bowel, bladder, and ureters. Special attention was paid to the bladder given her history of 2 previous sections. We additionally discussed the injuries unique to da Kailee surgery to include thermal injury and vaginal cuff dehiscence. She has understood all of this and has agreed to proceed. We are scheduled for surgery on the morning of April 03, 2024. MMODL / IJN: [id number] /
[2024-04-03] MEDS ORDERED: LIDOCAINE 1% (10MG/ML) FOR IV START INTRADERMA PRN (06:43)
[2024-04-03] MEDS: LACTATED RINGERS 1,000 ML IV SCH ×2 (06:50→10:50)
[2024-04-03] MEDS: IV FLUID CONTINUATION 1,000 ML IV ONE (06:50)
[2024-04-03] MEDS: MIDAZOLAM 2 MG/2 ML VIAL IV PRN (06:59)
[2024-04-03] MEDS ORDERED: fentaNYL (PF) 50 MCG/ML 2 ML AMP IVP PRN (07:00)
[2024-04-03] MEDS: DEXAMETHASONE SOD PHOSPHATE 4 MG/ML 1 ML VIAL IV ONE (07:07)
[2024-04-03] MEDS: SCOPOLAMINE 1 MG/72 HR PATCH TRANSDERM STA (07:08)
[2024-04-03] MEDS: ONDANSETRON 4 MG/2 ML VIAL IVP ONE (07:08)
[2024-04-03] MEDS ORDERED: NEOSTIGMINE 1 MG/ML 10 ML VIAL ONE (07:27)
[2024-04-03] MEDS ORDERED: SUCCINYLCHOLINE CHLORIDE 200 MG/10 ML VIAL IV ONE (07:27)
[2024-04-03] MEDS ORDERED: ROCURONIUM 10 MG/ML (5 ML VIAL) IV ONE (07:27)
[2024-04-03] MEDS ORDERED: fentaNYL (PF) 50 MCG/ML 2 ML AMP ONE (07:27)
[2024-04-03] MEDS ORDERED: MIDAZOLAM 2 MG/2 ML VIAL ONE (07:27)
[2024-04-03] MEDS ORDERED: KETAMINE HCL IN 0.9 % NACL 50 MG/5 ML SYRINGE ONE (07:27)
[2024-04-03] MEDS ORDERED: LIDOCAINE 1% INJ 10MG/ML (20 ML MDV) ONE (07:27)
[2024-04-03] MEDS ORDERED: PROPOFOL 10 MG/ML 20 ML VIAL IV ONE (07:27)
[2024-04-03] MEDS ORDERED: GLYCOPYRROLATE 0.2 MG/ML 2 ML VIAL ONE (07:27)
[2024-04-03] MEDS ORDERED: HYDROmorphone (PF) 1 MG/ML ONE (07:27)
[2024-04-03] MEDS: BUPIVACAINE (PF) 0.25% 30 ML VIAL SQ ONE ×2 (08:20→09:03)
[2024-04-03] MEDS: LACTATED RINGERS 1,000 ML IV ONE (08:54)
[2024-04-03] MEDS ORDERED: SIMETHICONE 80 MG CHEWABLE PO PRN (09:26)
[2024-04-03] MEDS ORDERED: diphenhydrAMINE 25 MG CAP PO PRN (09:26)
--- NOTE | 2024-04-03 09:39 | P.OP ---
Date of Procedure: 04/03/24 Preoperative Diagnosis: 1. Symptomatic fibroid uterus #2. Dysfunctional uterine bleeding Postoperative Diagnosis: Same Procedure(s) Performed: #1. Da Kailee robotically assisted laparoscopic hysterectomy with bilateral salpingectomy #2. Diagnostic cystoscopy #3. Lysis of adhesions Anesthesia: MISSY Surgeon: Reymundo Cox Instrument Sterilizer #1: Alem Nichole Estimated Blood Loss (ml): 50 IV fluids (ml): 900 Urine output (ml): 150 Pathology: other (Uterus and bilateral fallopian tubes) Condition: stable Disposition: PACU Operative Findings: Intraoperatively, there was noted to be some filmy and dense adhesions to the anterior abdominal wall from the omentum and also to the bladder likely from previous sections. These were all lysed intraoperatively without difficulty. The uterus itself was fairly bulky with obvious fibroids, 1 fairly large 1 on the right anterior fundal portion of the uterus. The ovaries were entirely normal. The bilateral fallopian tubes had evidence of tubal occlusion with Filshie clips. The remainder of the pelvis and lower abdomen was entirely normal. Following the procedure, there was no damage from a laparoscopic or cystoscopic perspective to the dome of the bladder and the bilateral ureters were seen peristalsing and producing urine within the bladder. Description of Procedure: The patient was prepped and draped in usual fashion after general endotracheal anesthesia was administered by the anesthesiologist. A weighted speculum was placed and the anterior lip of the cervix grasped with a single-tooth tenaculum. The uterus was sounded to approximately 9 cm. Serial dilation was carried out to admit a Vesicare uterine manipulator with a medium cup. This was placed in standard fashion without difficulty. And all instrumentation was removed from the vagina and the bladder was catheterized. Attention was turned to the abdomen where a site was selected approximately 4 cm above the umbilicus in the midplane where an 8 mm transverse incision was made allowing insertion of an 8 mm da Kailee optical port under direct visualization without difficulty. A pneumoperitoneum was infused and a site was selected approximately 10 to 12 cm lateral to the optical port on the right side and approximately 4 to 5 cm inferior where a 8 mm incision was made the transverse plane along insertion of an 8 mm da Kailee port under direct visualization without difficulty. A mirroring port was placed in the left lower quadrant. A site was selected in the left upper quadrant bisecting the 2 ports but approximately 4 to 5 cm above the optical port where a 10 mm incision was made in the transverse plane allowing insertion of a 10 mm accounting assistant port under direct visitation without difficulty. The robot was then docked to the patient. The right arm was loaded with a monopolar cautery scissors while the left arm was loaded with a [place] bipolar cautery forceps. Sharp dissection with cautery and scissors was utilized to take down all of the omental adhesions. Attention was then turned to the left side where the left fallopian tube was noted to have evidence of a Filshie clip from previous tube ligation. It was elevated and divided from the underlying tissues leaving the ovary in place with the [place] followed by the monopolar cautery scissors. This was carried out to the fundus. The utero- ovarian ligament was then cauterized and cut and taken through to the round ligament which was additionally cauterized and cut. This made the left parametrial area available to dissection. The uterine vasculature was skel etonized and the bladder peritoneum was developed across the midline and the bladder was reflected distally as best as possible. The uterine vasculature, once isolated, was cauterized and cut. Attention was then turned to the right side where similar operations were carried out in an uncomplicated fashion. After the bladder peritoneum had been connected and the bladder reflected significantly distally. The vagina was packed with laparotomy sponge and the vaginal cuff opened at the cup which was easily identified. The vaginal cup was followed circumferentially around the cervix to divide the uterus from the patient. The uterus was then removed through the vagina. There was minimal ongoing bleeding throughout. The scissors were replaced with a laparoscopic suturing device and a stitch of 0 STRATAFIX was passed into the abdomen and utilized to close the vaginal cuff from the right angle to the left angle in standard fashion without difficulty. Suction irrigation was then carried out and there was no ongoing bleeding nor any pathology noted. None of the adhesive sites were noted to be bleeding. I then returned to the patient and remove the Garnica catheter and placed a diagnostic cystoscope. The bladder was filled with sterile water and the dome of the bladder was undamaged from either the laparoscopic or hysteroscopic perspective. The bilateral ureteral Helex were noted and both seem to be peristalsing. All instrumentation was then removed and the Garnica catheter replaced. The robot was undocked from the patient and the ports removed. The skin incisions were closed with interrupted subcuticular stitches of 4-0 Vicryl followed by half-inch Steri-Strips placed with Mastisol. The 4 incisions were infused with a total of 10 cc of quarter percent Marcaine without epinephrine equally divided among the 4 incisions. Estimated blood loss for the case was approximately 50 mL. There were no complications. All sponge, instrument, and needle counts were correct. The patient tolerated the procedure well and proceeded to the recovery room in stable condition.
[2024-04-03] MEDS: HYDROmorphone 0.5 MG/0.5 ML SYRINGE IVP PRN (09:41)
[2024-04-03] MEDS: diphenhydrAMINE 50 MG/ML 1 ML VIAL IVP PRN (10:44)
[2024-04-03] MEDS: ACETAMINOPHEN IV (For NPO) 1,000 MG in EMPTY BAG 1 BAG IVPB STA (11:03)
[2024-04-03 11:33] VITALS: RESP 20
[2024-04-03] MEDS: HYDROmorphone 1 MG/ML 1 ML SYRINGE IVP PRN (13:13)
[2024-04-03] MEDS: ONDANSETRON 4 MG/2 ML VIAL IVP PRN (13:24)
[2024-04-03] MEDS: ACETAMINOPHEN TAB 325 MG TAB PO PRN (15:38)
[2024-04-03] MEDS: METOCLOPRAMIDE 5 MG/ML 2 ML VIAL IVP PRN (15:44)
[2024-04-03] MEDS: SENNOSIDES-DOCUSATE SODIUM 1 EACH TAB PO SCH (20:37)
[2024-04-04 06:38] LABS: Anisocytosis Slight; Basophils % (A) 0 %; Eosinophils # (A) 0.1 k/uL (0-0.7); Eosinophils % (A) 2 %; HCT 27.8 % (34.0-46.0); HGB 8.4 gm/dL (11.4-16.0); Hypochromasia Marked; Lymphocytes # (A) 2.4 k/uL (1.0-4.8); Lymphocytes % (A) 32 %; MCHC 30.3 g/dL (31.0-37.0); MCV 72.5 fL (80.0-100.0); Mean Platelet Volume 8.9; Microcytosis Marked; Monocytes # (A) 0.4 k/uL (0-1.0); Monocytes % (A) 5 %; Neutrophils # (A) 4.5 k/uL (1.3-7.7); Neutrophils % (A) 60 %; Platelet Count 238 k/uL (150-450); RBC 3.84 m/uL (3.80-5.40); RDW 18.9 % (11.5-15.5); WBC 7.5 k/uL (3.8-10.6)
[2024-04-04 08:17] VITALS: BP 133/72; PULSE 76; TEMP 97.5
--- NOTE | 2024-04-04 09:21 | P.DS ---
Providers Expected date of discharge: 04/04/24 Attending physician: Reymundo Cox Primary care physician: Armani Nix - Discharge Diagnosis(es) (1) Dysfunctional uterine bleeding Current Visit: Yes Status: Acute (2) Fibroid uterus Current Visit: Yes Status: Acute Hospital Course: Patient is a 33-year-old 2 para 2-0-0-2 who has a known finding of fibroid uterus and was recently taken to the OR where she had a prolapsing degenerative fibroid excised at the time of hysteroscopy with D&C. She continued to have bleeding after the procedure as well as discomfort and requested definitive therapy with hysterectomy. She was taken to the operating room where she underwent da Kailee robotically assisted laparoscopic hysterectomy with intraoperative lysis of adhesions and bilateral salpingectomy followed by diagnostic cystoscopy. This was done in an uncomplicated fashion. Her postoperative course was unremarkable with vital signs remaining stable and her temperature was afebrile throughout. She was deemed stable for discharge on postoperative day #1 and was discharged home to follow-up in the office in 2 weeks for an incision check in 8 weeks routinely. Discharge instructions included calling for any significantly increased bleeding, incisional concerns, abdominal pain, GI complaints, urinary complaints, or anything else that concerned her. She was additionally instructed to have nothing in the vagina for at least 8 weeks time to include intercourse. She understood her instructions and agrees to follow-up as noted above. Discharge medications included any normal home medications, [id number] analgesic pain medications, as well as a prescription for oxycodone 5 mg, 1-2 p.o. every 6 hours as needed pain, #20 dispensed with no refills. Discharge hemoglobin and hematocrit were 8.4 and 27.8 respectively. As a result, she was to continue using iron sulfate 325 mg daily for the next month in order to rebuild her hemoglobin. Procedures: #1. Da Kailee robotically assisted laparoscopic hysterectomy with bilateral salpingectomy #2. Intraoperative abdominal pelvic adhesiolysis #3. Diagnostic cystoscopy Patient Condition at Discharge: Stable Plan - Discharge Summary Discharge Rx Participant: No New Discharge Prescriptions: No Action Multivitamins, Thera [Multivitamin (formulary)] 1 tab PO DAILY Beat The Bloat By Hiram 1 dose PO DAILY Discharge Medication List Multivitamins, Thera [Multivitamin (formulary)] 1 tab PO DAILY 01/22/24 [History] Beat The Bloat By Hiram 1 dose PO DAILY 04/01/24 [History] Follow up Appointment(s)/Referral(s): Reymundo Cox MD [STAFF PHYSICIAN] - 2 Weeks Discharge Disposition: HOME SELF-CARE
== END 2024-04-04 10:31 | disposition home or self-care (01) ==
LOC: OR 05:44 → 4FBP 09:14 → OR 04-04 10:31
PROVIDERS: ATTEND Obstetrics & Gynecology
DX: D25.1 Intramural leiomyoma of uterus (principal); D64.9 Anemia, unspecified; Z90.49 Acquired absence of other specified parts of digestive tract; R93.89 Abnormal findings on diagnostic imaging of other specified body structures
CPT/HCPCS: 58571; S2900; 81025; 85025; 88307